=== PATIENT | female | born 1980 | race Caucasian/White ===

== ENCOUNTER → 2020-09-13 | Outpatient (CLI) | payer OTHER ==
[2020-09-13 23:35] LABS: Basophils # (A) 0.08 X 10*3/uL (0.00-0.10); Basophils % (A) 1.4 %; Eosinophils # (A) 0.21 X 10*3/uL (0.04-0.35); Eosinophils % (A) 3.6 %; HCT 43.9 % (37.2-46.3); HGB 13.9 g/dL (12.0-15.0); Lymphocytes # (A) 1.55 X 10*3/uL (0.90-5.00); Lymphocytes % (A) 26.5 %; MCHC 31.7 g/dL (32.0-37.0); MCV 91.5 fL (80.0-97.0); Mean Platelet Volume 11.1 fL (9.5-12.2); Monocytes # (A) 0.49 X 10*3/uL (0.20-1.00); Monocytes % (A) 8.4 %; Neutrophils % (A) 59.8 %; Platelet Count 302 X 10*3/uL (140-440); WBC 5.85 X 10*3/uL (4.50-10.00)
[2020-09-14 08:26] LABS: Immunoglobulin E 2.68 IU/mL (0.00-114.00)
[2020-09-14 13:13] LABS: Immunoglobulin A <25.5 mg/dL (60.0-350.0); Immunoglobulin M 89.4 mg/dL (40.0-280.0)
== END | disposition home or self-care (01) ==
LOC: LABWHC1 16:18
PROVIDERS: ATTEND Internal Medicine
DX: L50.9 Urticaria, unspecified (principal); J20.9 Acute bronchitis, unspecified
CPT/HCPCS: 36415; 82784; 82785; 83520; 85025; 86038

== ENCOUNTER → 2020-10-12 | Outpatient (CLI) | payer OTHER ==
--- NOTE | 2020-10-12 22:13 | CONS ---
CONSULTATION DATE OF SERVICE: 10/12/2020 This 40-year-old lady has been evaluated in [facility] Center for obstructive sleep apnea- hypopnea syndrome. HISTORY OF PRESENT ILLNESS/SLEEP-WAKE EVALUATION: This patient was diagnosed with obstructive sleep apnea in another institution in March of 2020. At that time, apnea-hypopnea index was 13.43 with oxygen desaturation to 84%. The patient was started on treatment with AutoPAP, but she did not feel comfortable with the machine and several times changed her mask, but still could not sleep well. Her sleep is from 3 or 4 a.m. until 9 or 11 a.m. and then she gets up around 1 or 2 p.m. I checked her CPAP unit. It is on automatic regimen. Range of the pressure 5 to 13 cm of water with average pressure 9.8 cm of water. Usage is 12/30 nights and 7/30 nights for more than 4 hours. Leak is 16 L/minute. Apnea-hypopnea index increased to 16.8. [place] Sleepiness Scale is zero. The patient does not have problems with falling asleep, according to her, but from sleep she wakes up several times with up to 3 episodes of nocturia. No history of hypnagogic hallucinations, sleep paralysis or cataplexy. PAST MEDICAL HISTORY: Positive for anxiety, PTSD, GERD, hypothyroidism, Ig deficiency, arthritis. According to the patient, she has had several episodes of COVID-19, the last one in April of 2020. Explanation for several episodes is related to her immune deficiency. PAST SURGICAL HISTORY: Hysterectomy 2013. Cervical fusion in 2018. SOCIAL HISTORY: Negative for smoking or using alcohol. MEDICATIONS: 1. Cymbalta 90 mg once a day. 2. Lamictal 100 mg once a day. 3. Synthroid 75 mcg once a day. 4. Prilosec 20 mg once a day. 5. Claritin 10 mg once a day. 6. Vistaril 25 mg. 7. Montelukast 10 mg once a day. 8. Neurontin 300 mg. 9. Xanax 0.5 mg. 10.Zofran 4 mg. 11.Albuterol. 12.Oxycodone 5/325. 13.Meloxicam 7.5 mg. REVIEW OF SYSTEMS: No fevers. No double vision. No recent chest pain. No shortness of breath. No abdominal pain. No bleeding episodes. No blood in the urine. No seizure episodes. Awakenings from sleep. FAMILY HISTORY: Hypertension, epilepsy, stroke. PHYSICAL EXAMINATION: GENERAL: A pleasant lady without distress. VITAL SIGNS: BP 126/87, HR 88, RR 14, height 5 feet 4 inches, weight 209.8, body mass index 35.8, temperature 97.9, oxygen saturation at room air 97%. HEENT: PERRLA, EOMI. Evaluation of oropharynx showed tongue protrudes midline. Low position of soft palate. Mallampati III to IV. NECK: Supple. No JVD. Thyroid is not palpable. LUNGS: Clear to percussion and to auscultation. Good air exchange. No wheezing or rhonchi. HEART: S1, S2 regular. No murmurs, gallops or rubs. ABDOMEN: Slightly obese. EXTREMITIES: No clubbing or cyanosis. BASKET PERSON: Awake, alert, and oriented X3. Cranial nerves 2 to 7 intact. There is no fasciculation or atrophy. noted. No focal deficits observed. IMPRESSION: 1. Obstructive sleep apnea-hypopnea syndrome. The patient has difficulties with usage of CPAP equipment related to mask fitting. Also reading from the machine showed high apnea-hypopnea index. 2. Obesity. BMI 35.8. 3. Status post COVID-19, according to the patient 3 times, the last time in April 2020. 4. Ig deficiency. 5. Anxiety. 6. Post-traumatic stress disorder. 7. Gastroesophageal reflux disease. 8. Hypothyroidism. 9. Arthritis. 10.Status post partial hysterectomy in 2012. PLAN: 1. CPAP titration for evaluation of effective CPAP pressure and to find correct mask for treatment of obstructive sleep apnea-hypopnea syndrome. 2. Sleep hygiene with regular time in bed for 7-1/2 to 8 hours. 3. No driving if feeling any sleepiness. 4. Exposure to the bright light in the morning -- sunlight or artificial light machine with 10,000 lux energy. 5. Watching and losing weight. Thank you very much for referring this patient for consultation. Sincerely, Chase Kwok MD, PhD, FAASM Diplomat of [place] [employer] [place] [employer] [facility] MMODL / IJN: [id number] /
== END ==
LOC: SLEEP 16:09
PROVIDERS: ATTEND Internal Medicine
DX: G47.33 Obstructive sleep apnea (adult) (pediatric) (principal); E66.9 Obesity, unspecified; F41.9 Anxiety disorder, unspecified; K21.9 Gastro-esophageal reflux disease without esophagitis; E03.9 Hypothyroidism, unspecified; D80.2 Selective deficiency of immunoglobulin A [IgA]; M19.90 Unspecified osteoarthritis, unspecified site; F43.10 Post-traumatic stress disorder, unspecified; Z86.16 Personal history of COVID-19; Z68.35 Body mass index [BMI] 35.0-35.9, adult; Z90.711 Acquired absence of uterus with remaining cervical stump; Z79.890 Hormone replacement therapy; Z79.1 Long term (current) use of non-steroidal anti-inflammatories (NSAID); Z79.899 Other long term (current) drug therapy
CPT/HCPCS: 99211

== ENCOUNTER 2020-10-19 21:01 | Emergency (ER) | payer OTHER ==
[2020-10-19 21:09] VITALS: RESP 18
--- NOTE | 2020-10-19 21:39 | ED ---
Chest Pain HPI - General Chief Complaint: Chest Pain Stated Complaint: chest pain, L arm tingling Time Seen by Provider: 10/19/20 21:38 Source: patient, RN notes reviewed, old records reviewed Mode of arrival: wheelchair Limitations: no limitations - History of Present Illness Initial Comments: This is a 40-year-old female DF for evaluation patient comes in with elevated heart rate shortness chest pain left-sided chest pain left arm numbness and tingling. History or injury. No prior history of heart disease or family history, nonsmoker MD Complaint: chest pain, other (Left arm pain) -: hour(s) Onset: during rest Pain Location: substernal, left chest Pain Radiation: LUE Severity: moderate Severity scale (1-10): 4 Quality: tightness, heaviness Consistency: constant Improves With: nothing Other Symptoms: palpitations Treatments Prior to Arrival: none - Related Data Home Medications Medication Instructions Recorded Confirmed ALPRAZolam [Xanax] 0.5 - 1 mg PO Q4H PRN 10/19/20 10/19/20 Albuterol Sulfate [Albuterol 2 puff PO RT-Q6H PRN 10/19/20 10/19/20 Sulfate Hfa] DULoxetine HCL [Cymbalta] 30 mg PO DAILY 10/19/20 10/19/20 DULoxetine HCL [Cymbalta] 60 mg PO DAILY 10/19/20 10/19/20 Diazepam [Valium] 5 mg PO DAILY PRN 10/19/20 10/19/20 EPINEPHrine (Auto Inject) [Epipen] 0.3 mg IM ONCE PRN 10/19/20 10/19/20 Fluticasone Nasal [place] [Flonase 1 spray EA NOSTRIL DAILY PRN 10/19/20 10/19/20 Nasal [place]] Gabapentin [Neurontin] 300 mg PO DAILY 10/19/20 10/19/20 Gabapentin [Neurontin] 900 mg PO HS 10/19/20 10/19/20 Hydroxychloroquine Sulfate 200 mg PO BID 10/19/20 10/19/20 [Plaquenil] Ibuprofen [Motrin] 800 mg PO Q8H PRN 10/19/20 10/19/20 Leflunomide [Arava] 20 mg PO DAILY 10/19/20 10/19/20 Levothyroxine Sodium [Synthroid] 75 mcg PO DAILY 10/19/20 10/19/20 Loratadine [Claritin] 10 mg PO DAILY 10/19/20 10/19/20 Montelukast Sodium [Singulair] 10 mg PO HS 10/19/20 10/19/20 Omeprazole 20 mg PO DAILY 10/19/20 10/19/20 Ondansetron Odt [Zofran Odt] 4 mg PO Q8HR PRN 10/19/20 10/19/20 hydrOXYzine pamoate [Vistaril] 25 mg PO HS 10/19/20 10/19/20 lamoTRIgine [LaMICtal] 100 mg PO HS 10/19/20 10/19/20 oxyCODONE-APAP 5-325MG [Percocet 1 tab PO Q4H PRN 10/19/20 10/19/20 5-325 mg] tiZANidine HCL 4 mg PO TID PRN 10/19/20 10/19/20 Allergies Allergy/AdvReac Type Severity Reaction Status Date / Time Iodinated Contrast Media Allergy Anaphylaxis Verified 10/19/20 22:47 latex Allergy Anaphylaxis Verified 10/19/20 22:47 Review of Systems ROS Statement: Those systems with pertinent positive or pertinent negative responses have been documented in the HPI. ROS Other: All systems not noted in ROS Statement are negative. EKG Findings - EKG Comments: EKG Findings:: EKG is sinus a 98 NH 150 QRS 90 QTC 459 Past Medical History Past Medical History: No Reported History Additional Past Medical History / Comment(s): spinal cord injury, brain injury. History of Any Multi-Drug Resistant Organisms: None Reported Past Surgical History: Hysterectomy Additional Past Surgical History / Comment(s): spinal fusion Past Psychological History: No Psychological Hx Reported Smoking Status: Never smoker Past Alcohol Use History: None Reported Past Drug Use History: None Reported General Exam Limitations: no limitations General appearance: alert, in no apparent distress, anxious Head exam: Present: atraumatic, normocephalic, normal inspection Eye exam: Present: normal appearance, PERRL, EOMI. Absent: scleral icterus, conjunctival injection, periorbital swelling ENT exam: Present: normal exam, mucous membranes moist Neck exam: Present: normal inspection. Absent: tenderness, meningismus, lymphadenopathy Respiratory exam: Present: normal lung sounds bilaterally. Absent: respiratory distress, wheezes, rales, rhonchi, stridor Cardiovascular Exam: Present: normal rhythm, tachycardia, normal heart sounds. Absent: systolic murmur, diastolic murmur, rubs, gallop, clicks GI/Abdominal exam: Present: soft, normal bowel sounds. Absent: distended, tenderness, guarding, rebound, rigid Extremities exam: Present: normal inspection, full ROM, normal capillary refill. Absent: tenderness, pedal edema, joint swelling, calf tenderness Back exam: Present: normal inspection Neurological exam: Present: alert, oriented X3, CN II-XII intact Psychiatric exam: Present: normal affect, normal mood Skin exam: Present: warm, dry, intact, normal color. Absent: rash Course Vital Signs 10/19/20 10/19/20 10/19/20 21:04 22:09 22:20 Temperature 98.0 F Pulse Rate 120 H 112 H Pulse Rate [ 89 Dyer Helper ] Respiratory 18 18 Rate Blood Pressure 135/84 138/83 O2 Sat by Pulse 97 97 Oximetry - Reevaluation(s) Reevaluation #1: 10/19/20 21:39 Medical record is reviewed Reevaluation #2: 10/20/20 00:44 Patient continues to feel improved with heart rate improved Reevaluation #3: Studies Chest x-ray CT chest negative for acute disease Chest Pain MDM - MDM 80 female with nonspecific elevated heart rate. Patient has anemia, not difficulties, coronavirus test is negative patient did have unspecified tachycardia at her house history 140s, will follow up with outpatient family doctor for possible monitor altered monitor. Patient can be discharged home Disposition Clinical Impression: Atypical chest pain, Tachycardia Disposition: HOME SELF-CARE Condition: Good Instructions (If sedation given, give patient instructions): Tachycardia (ED) Is patient prescribed a controlled substance at d/c from ED?: No Referrals: Bernardo Fishman DO [Primary Care Provider] - 1-2 days
[2020-10-19] MEDS ORDERED: SODIUM CHLORIDE 0.9% 1,000 ML IV STA ×2 (21:43)
[2020-10-19] MEDS ORDERED: FAMOTIDINE 20 MG/2 ML VIAL IV STA (21:53)
[2020-10-19] MEDS ORDERED: methylPREDNISolone SOD SUCCI 125 MG/2 ML VIAL IV STA (21:53)
[2020-10-19] MEDS ORDERED: diphenhydrAMINE 50 MG/ML 1 ML VIAL IVP STA (21:53)
[2020-10-19 22:02] LABS: Basophils # (A) 0.1 k/uL (0-0.2); Basophils % (A) 1 %; Eosinophils # (A) 0.2 k/uL (0-0.7); Eosinophils % (A) 2 %; HCT 42.4 % (34.0-46.0); HGB 14.2 gm/dL (11.4-16.0); Lymphocytes # (A) 1.5 k/uL (1.0-4.8); Lymphocytes % (A) 21 %; MCH 29.4 pg (25.0-35.0); MCHC 33.5 g/dL (31.0-37.0); MCV 87.9 fL (80.0-100.0); Mean Platelet Volume 7.8; Monocytes # (A) 0.5 k/uL (0-1.0); Monocytes % (A) 7 %; Neutrophils # (A) 4.9 k/uL (1.3-7.7); Neutrophils % (A) 68 %; Platelet Count 304 k/uL (150-450); RBC 4.83 m/uL (3.80-5.40); RDW 12.9 % (11.5-15.5); WBC 7.2 k/uL (3.8-10.6)
[2020-10-19 22:12] LABS: ALT 20 U/L (4-34); AST 25 U/L (14-36); African American GFR (CKD) >90 (>60 ml/min/1.73 sqM); Albumin 4.1 g/dL (3.5-5.0); Alkaline Phosphatase 87 U/L (38-126); Anion Gap 8 mmol/L; Blood Urea Nitrogen 12 mg/dL (7-17); Calcium 9.2 mg/dL (8.4-10.2); Carbon Dioxide 24 mmol/L (22-30); Chloride 107 mmol/L (98-107); Glucose 84 mg/dL (74-99); Lipase 147 U/L (23-300); Magnesium 1.8 mg/dL (1.6-2.3); Non-African American GFR(CKD) 82 (>60 ml/min/1.73 sqM); Potassium 3.8 mmol/L (3.5-5.1); Sodium 139 mmol/L (137-145); Total Bilirubin 0.4 mg/dL (0.2-1.3); Total Protein 6.8 g/dL (6.3-8.2)
[2020-10-19 22:17] LABS: INR 0.9 (<1.2); Partial Thromboplastin Time 23.1 sec (22.0-30.0)
--- NOTE | 2020-10-19 22:57 | XR ---
EXAMINATION TYPE: XR chest 1V portable DATE OF EXAM: 10/19/2020 COMPARISON: NONE HISTORY: Short of breath TECHNIQUE: Single view FINDINGS: Heart and mediastinum are normal. Lungs are clear. Diaphragm is normal. Bony thorax appears intact. There are chest leads. IMPRESSION: Normal chest.
[2020-10-19 23:10] LABS: C Reactive Protein 1.6 mg/dL (<1.0)
--- NOTE | 2020-10-19 23:29 | CT ---
EXAMINATION TYPE: CT angio chest DATE OF EXAM: 10/19/2020 COMPARISON: None HISTORY: elevated d-dimer CT DLP: 541.3 mGycm Automated exposure control for dose reduction was used. CONTRAST: Performed with IV Contrast, patient injected with 60 mL of Isovue 370. Images obtained from the thoracic inlet to the diaphragm with IV contrast and 3-D post processed imag es. FINDINGS: Thoracic aorta is intact. There is no aneurysm or dissection. There is no mediastinal adenopathy. The re are no hilar masses. There is normal contrast opacification of the pulmonary arteries. There are no filling defects. Thoracic spine is intact. I see no bony destructive process. The lungs are clear of infiltrate. There is no evidence of a pulmonary mass. There is no pleural effu rosa isela. There is no pericardial effusion. There is single emphysematous bulla in the right lower lobe. The upper abdominal soft tissues are intact. IMPRESSION: Negative exam. No evidence of pulmonary embolism.
[2020-10-20 01:15] LABS: T4, Free (Free Thyroxine) 1.5 ng/dL (0.78-2.19)
[2020-10-20 01:40] VITALS: BP 136/86; PULSE 107; TEMP 98.7
== END 2020-10-20 01:10 | disposition home or self-care (01) ==
LOC: EC 21:01
DX: R07.89 Other chest pain (principal); R00.0 Tachycardia, unspecified; Z79.1 Long term (current) use of non-steroidal anti-inflammatories (NSAID); Z79.899 Other long term (current) drug therapy; Z91.040 Latex allergy status
CPT/HCPCS: 99285; 96374; 96375 ×2; 96361 ×3; 36415; 93005; 85379; 84439; 83880; 80053; 84443; 83615; 83690; 83735; 84484; 85025; 85610; 85730; 86140; 87635; 71045; 71275; J1200; J2930; Q9967

== ENCOUNTER → 2020-12-15 | Outpatient (CLI) | payer OTHER ==
--- NOTE | 2020-12-16 08:42 | SFUN ---
SLEEP CENTER FOLLOW UP NOTE DATE OF SERVICE: 12/15/2020 40-year-old lady has been followed in Sleep Center for treatment of obstructive sleep apnea-hypopnea syndrome. The patient is using her CPAP equipment every night for the whole night. Discomfort on the back of her head secondary to mask head gear. Sometimes mask may go away, goes off during the sleep after Sleepiness Scale today is 0, which is perfect. I checked her CPAP unit, pressure in the range 5 to 13 with average pressure of 11 cm of water. Usage is 100% of night and 21/30 nights more than 4 hours, average 5.1 hours per night. Leak is quite high 62 L/minute. Apnea-hypopnea index on the border is 5.4. MEDICATIONS: Synthroid 75 mcg once a day, Neurontin 300 mg once a day, Prilosec 20 mg once a day. Lamictal 100 mg once a day, Cymbalta 90 mg once a day. . Hydroxyzine. PHYSICAL EXAMINATION: GENERAL: Patient in no distress. BP 114/71, HR 97, RR 18, weight 212.6, body mass index 36.3, temperature 98.1, oxygen saturation at room air 96%. Evaluation of oropharynx showed low position of soft palate, Mallampati 3-4. NECK: Supple, no JVD. Thyroid is not palpable. LUNGS: Clear to percussion and to auscultation. Good air exchange. No wheezing or rhonchi. HEART: S1, S2 regular. No murmurs, gallops, or rubs. ABDOMEN: Soft and nontender. Bowel sounds are present. No organomegaly appreciated. EXTREMITIES: No clubbing or cyanosis. MID LEVEL PROVIDER: Awake, alert, and oriented X3. Cranial nerves 2 to 7 intact. There is no fasciculation or atrophy. noted. No focal deficits observed. IMPRESSION: 1. Obstructive sleep apnea-hypopnea syndrome. Patient demonstrated great compliance with treatment benefitting from treatment. 2. Obesity. 3. Status post Covid-19, last time in April 2020. 4. Anxiety. 5. Post-traumatic stress disorder. 6. Gastroesophageal reflux disease. 7. Hypothyroidism. 8. Arthritis. 9. Status post partial hysterectomy in 2012. PLAN: 1. We will try a different style of nasal pillow mask which has head gear which goes around the ears, [employer] [place]. 2. Patient will continue to use PAP equipment every night for the whole night. 3. Sleep hygiene with regular time in bed for at least 7-1/2 to 8 hours. 4. Precautions related to driving. No driving if feeling sleepiness. 5. I will maintain all necessary prescription for PAP supplies including mask, tube, filters. 6. Watching weight. 7. Follow-up visit in 6 months or earlier if patient has any problems. Thank you very much for allowing me to participate in management of your patient. Sincerely, Chase Kwok MD, PhD, FAASM Diplomat of [place] [employer] Sleep Medicine Board of [place] [employer] Nurse Intern of [facility] [place] MMODL / IJN: [id number] /
== END ==
LOC: SLEEP 15:36
PROVIDERS: ATTEND Internal Medicine
DX: G47.33 Obstructive sleep apnea (adult) (pediatric) (principal); E66.9 Obesity, unspecified; F41.9 Anxiety disorder, unspecified; F43.10 Post-traumatic stress disorder, unspecified; K21.9 Gastro-esophageal reflux disease without esophagitis; E03.9 Hypothyroidism, unspecified; M19.90 Unspecified osteoarthritis, unspecified site; Z90.711 Acquired absence of uterus with remaining cervical stump; Z86.16 Personal history of COVID-19; Z68.36 Body mass index [BMI] 36.0-36.9, adult; Z79.890 Hormone replacement therapy; Z79.899 Other long term (current) drug therapy; Z91.041 Radiographic dye allergy status; Z91.040 Latex allergy status

== ENCOUNTER → 2020-12-20 | Outpatient (CLI) | payer OTHER ==
[2020-12-20 23:40] LABS: Basophils # (A) 0.08 X 10*3/uL (0.00-0.10); Eosinophils # (A) 0.25 X 10*3/uL (0.04-0.35); Eosinophils % (A) 3.1 %; HCT 44.7 % (37.2-46.3); HGB 13.9 g/dL (12.0-15.0); Lymphocytes # (A) 1.65 X 10*3/uL (0.90-5.00); Lymphocytes % (A) 20.3 %; MCH 28.7 pg (27.0-32.0); MCHC 31.1 g/dL (32.0-37.0); MCV 92.4 fL (80.0-97.0); Mean Platelet Volume 10.9 fL (9.5-12.2); Monocytes # (A) 0.64 X 10*3/uL (0.20-1.00); Monocytes % (A) 7.9 %; Neutrophils # (A) 5.48 X 10*3/uL (1.80-7.70); Neutrophils % (A) 67.3 %; Platelet Count 314 X 10*3/uL (140-440); RBC 4.84 X 10*6/uL (4.10-5.20); RDW 13.6 % (11.5-14.5); WBC 8.13 X 10*3/uL (4.50-10.00)
[2020-12-21 00:40] LABS: Erythrocyte Sedimentation Rate 9 mm/Hr (0-20)
[2020-12-21 03:00] LABS: Cyclic Citrull Pep IgG Unit <0.5 U/mL; Cyclic Citrullinated Pep IgG NEGATIVE (NEGATIVE)
[2020-12-21 04:26] LABS: ALT 12 U/L (8-44); AST 14 U/L (13-35); African American GFR (CKD) 105.4 (60.0-200.0); Albumin/Globulin Ratio 1.62 (1.60-3.17); Alkaline Phosphatase 94 U/L (41-126); Bilirubin, Conjugated <0.20 mg/dL (0.20-0.40); C Reactive Protein 0.8 mg/dL (0.0-0.8); Globulin 2.6 g/dL (1.6-3.3); Non-African American GFR(CKD) 90.9 (60.0-200.0); Total Bilirubin 0.4 mg/dL (0.3-1.2); Total Protein 6.8 g/dL (6.2-8.2)
== END | disposition home or self-care (01) ==
LOC: LABWHC1 13:35
PROVIDERS: ATTEND Internal Medicine Rheumatology
DX: M19.90 Unspecified osteoarthritis, unspecified site (principal); M79.7 Fibromyalgia; Z79.899 Other long term (current) drug therapy
CPT/HCPCS: 36415; 80076; 82565; 85025; 85652; 86140; 86200

== ENCOUNTER → 2020-12-26 | Outpatient (CLI) | payer OTHER ==
--- NOTE | 2020-12-27 09:34 | XR ---
EXAMINATION TYPE: XR ankle complete RT DATE OF EXAM: 12/26/2020 COMPARISON: NONE HISTORY: Pain FINDINGS: Three views of the ankle demonstrate the ankle mortise to be intact and symmetric. The joint spaces are preserved. The osseous structures are intact. IMPRESSION: 1. No definite acute fracture or dislocation, if symptoms persist follow-up study in 7 to 10 days wou ld be suggested.
== END | disposition home or self-care (01) ==
LOC: RADXRMAIN 18:13
PROVIDERS: ATTEND Family Medicine
DX: M25.571 Pain in right ankle and joints of right foot (principal)

== ENCOUNTER 2021-01-03 11:59 | Emergency (ER) | payer OTHER ==
[2021-01-03 12:11] VITALS: TEMP 98
[2021-01-03] MEDS ORDERED: SODIUM CHLORIDE 0.9% 500 ML 500 ML IV STA (12:27)
--- NOTE | 2021-01-03 12:31 | ED ---
General Adult HPI - General Chief complaint: Chest Pain Stated complaint: Chest Pain Time Seen by Provider: 01/03/21 12:05 Source: patient, EMS, RN notes reviewed, old records reviewed Mode of arrival: EMS Limitations: no limitations - History of Present Illness Initial comments: This is a 40-year-old female who complains of waking up with epigastric and lower chest pain lasts about 5 minutes sharp in nature and then she vomits and it eventually subsides and she was back to sleep. Patient states it happened 3 times. Currently she is chest pain and epigastric pain free. Patient still has her gallbladder. Patient denies any difficulty breathing shortness of breath. Patient states just before throwing up she got very hot. Patient denies any n ausea currently. Patient has any diarrhea. Patient denies any lightheadedness or dizziness. Patient denies any fever or chills. - Related Data Home Medications Medication Instructions Recorded Confirmed DULoxetine HCL [Cymbalta] 30 mg PO DAILY 10/19/20 01/03/21 DULoxetine HCL [Cymbalta] 60 mg PO DAILY 10/19/20 01/03/21 EPINEPHrine (Auto Inject) [Epipen] 0.3 mg IM ONCE PRN 10/19/20 01/03/21 Gabapentin [Neurontin] 300 mg PO DAILY 10/19/20 01/03/21 Gabapentin [Neurontin] 900 mg PO HS 10/19/20 01/03/21 Levothyroxine Sodium [Synthroid] 75 mcg PO DAILY 10/19/20 01/03/21 Loratadine [Claritin] 10 mg PO DAILY 10/19/20 01/03/21 Omeprazole 20 mg PO DAILY 10/19/20 01/03/21 hydrOXYzine pamoate [Vistaril] 25 mg PO HS 10/19/20 01/03/21 lamoTRIgine [LaMICtal] 100 mg PO HS 10/19/20 01/03/21 oxyCODONE-APAP 5-325MG [Percocet 1 tab PO BID PRN 10/19/20 01/03/21 5-325 mg] tiZANidine HCL 4 mg PO TID PRN 10/19/20 01/03/21 Ubrogepant [Ubrelvy] 50 mg PO BID PRN 01/03/21 01/03/21 Allergies Allergy/AdvReac Type Severity Reaction Status Date / Time Iodinated Contrast Media Allergy Anaphylaxis Verified 10/19/20 22:47 latex Allergy Anaphylaxis Verified 10/19/20 22:47 Review of Systems ROS Statement: Those systems with pertinent positive or pertinent negative responses have been documented in the HPI. ROS Other: All systems not noted in ROS Statement are negative. Past Medical History Past Medical History: No Reported History, Rheumatoid Arthritis (RA) Additional Past Medical History / Comment(s): spinal cord injury, brain injury. History of Any Multi-Drug Resistant Organisms: None Reported Past Surgical History: Hysterectomy Additional Past Surgical History / Comment(s): spinal fusion/ Past Psychological History: No Psychological Hx Reported Smoking Status: Never smoker Past Alcohol Use History: None Reported Past Drug Use History: Marijuana General Exam - General Exam Comments Initial Comments: PGENERAL: Patient is well-developed and well-nourished. Patient is nontoxic and well- hydrated and is in no acute distress. ENT: Neck is soft and supple. No significant lymphadenopathy is noted. Oropharynx is clear. Moist mucous membranes. Neck has full range of motion without eliciting any pain. EYES: The sclera were anicteric and conjunctiva were pink and moist. Extraocular movements were intact and pupils were equal round and reactive to light. Eyelids were unremarkable. PULMONARY: Unlabored respirations. Good breath sounds bilaterally. No audible rales rhonchi or wheezing was noted. CARDIOVASCULAR: There is a regular rate and rhythm without any murmurs gallops or rubs. ABDOMEN: Soft and nontender with normal bowel sounds. SKIN: Skin is clear with no lesions or rashes and otherwise unremarkable. NEUROLOGIC: Patient is alert and oriented x3. Cranial nerves II through XII are grossly i ntact. Motor and sensory are also intact. Normal speech, volume and content. Symmetrical smile. MUSCULOSKELETAL: Normal extremities with adequate strength and full range of motion. No lower extremity swelling or edema. No calf tenderness. LYMPHATICS: No significant lymphadenopathy is noted PSYCHIATRIC: Normal psychiatric evaluation. Limitations: no limitations Course Vital Signs 01/03/21 01/03/21 01/03/21 12:04 13:11 14:30 Temperature 98.0 F Pulse Rate 116 H 95 89 Respiratory 22 20 22 Rate Blood Pressure 136/101 120/80 112/74 O2 Sat by Pulse 97 96 95 Oximetry Medical Decision Making - Medical Decision Making EKG shows sinus tachycardia at a 104 bpm NC interval is on a 54 QRS is 90 QT interval 3:30 QTC is 444. EKG shows no ST segment elevation or depression. Patient chest x-ray showed no acute abnormality. Gallbladder ultrasound showed no acute cholecystitis and no stones. I went back in to see the patient and patient had no new symptoms. - Lab Data Result diagrams: 01/03/21 12:36 01/03/21 12:36 Lab Results 01/03/21 01/03/21 01/03/21 Range/Units 12:36 12:36 12:36 WBC 8.4 (3.8-10.6) k/uL RBC 5.00 (3.80-5.40) m/uL Hgb 14.8 (11.4-16.0) gm/dL Hct 45.5 (34.0-46.0) % MCV 91.0 (80.0-100.0) fL MCH 29.6 (25.0-35.0) pg MCHC 32.6 (31.0-37.0) g/dL RDW 13.2 (11.5-15.5) % Plt Count 318 (150-450) k/uL MPV 7.8 Neutrophils % 72 % Lymphocytes % 16 % Monocytes % 5 % Eosinophils % 3 % Basophils % 1 % Neutrophils # 6.1 (1.3-7.7) k/uL Lymphocytes # 1.4 (1.0-4.8) k/uL Monocytes # 0.5 (0-1.0) k/uL Eosinophils # 0.3 (0-0.7) k/uL Basophils # 0.1 (0-0.2) k/uL PT 9.5 (9.0-12.0) sec INR 0.9 (<1.2) APTT 22.8 (22.0-30.0) sec Sodium 139 (137-145) mmol/L Potassium 4.5 (3.5-5.1) mmol/L Chloride 105 (98-107) mmol/L Carbon Dioxide 25 (22-30) mmol/L Anion Gap 9 mmol/L BUN 12 (7-17) mg/dL Creatinine 0.61 (0.52-1.04) mg/dL Est GFR (CKD-EPI)AfAm >90 (>60 ml/min/1.73 sqM) Est GFR (CKD-EPI)NonAf >90 (>60 ml/min/1.73 sqM) Glucose 107 H (74-99) mg/dL Calcium 9.6 (8.4-10.2) mg/dL Magnesium 1.9 (1.6-2.3) mg/dL Total Bilirubin 0.3 (0.2-1.3) mg/dL AST 22 (14-36) U/L ALT 16 (4-34) U/L Alkaline Phosphatase 109 (38-126) U/L Troponin I (0.000-0.034) ng/mL Total Protein 7.1 (6.3-8.2) g/dL Albumin 4.3 (3.5-5.0) g/dL Amylase 100 (30-110) U/L Lipase 381 H (23-300) U/L 01/03/21 Range/Units 12:36 WBC (3.8-10.6) k/uL RBC (3.80-5.40) m/uL Hgb (11.4-16.0) gm/dL Hct (34.0-46.0) % MCV (80.0-100.0) fL MCH (25.0-35.0) pg MCHC (31.0-37.0) g/dL RDW (11.5-15.5) % Plt Count (150-450) k/uL MPV Neutrophils % % Lymphocytes % % Monocytes % % Eosinophils % % Basophils % % Neutrophils # (1.3-7.7) k/uL Lymphocytes # (1.0-4.8) k/uL Monocytes # (0-1.0) k/uL Eosinophils # (0-0.7) k/uL Basophils # (0-0.2) k/uL PT (9.0-12.0) sec INR (<1.2) APTT (22.0-30.0) sec Sodium (137-145) mmol/L Potassium (3.5-5.1) mmol/L Chloride (98-107) mmol/L Carbon Dioxide (22-30) mmol/L Anion Gap mmol/L BUN (7-17) mg/dL Creatinine (0.52-1.04) mg/dL Est GFR (CKD-EPI)AfAm (>60 ml/min/1.73 sqM) Est GFR (CKD-EPI)NonAf (>60 ml/min/1.73 sqM) Glucose (74-99) mg/dL Calcium (8.4-10.2) mg/dL Magnesium (1.6-2.3) mg/dL Total Bilirubin (0.2-1.3) mg/dL AST (14-36) U/L ALT (4-34) U/L Alkaline Phosphatase (38-126) U/L Troponin I <0.012 (0.000-0.034) ng/mL Total Protein (6.3-8.2) g/dL Albumin (3.5-5.0) g/dL Amylase (30-110) U/L Lipase (23-300) U/L Disposition Clinical Impression: Atypical chest pain, Epigastric abdominal pain, Vomiting Disposition: HOME SELF-CARE Instructions (If sedation given, give patient instructions): Abdominal Pain (ED), Chest Pain (ED) Additional Instructions: Take Zofran when necessary Is patient prescribed a controlled substance at d/c from ED?: No Referrals: Bernardo Fishman DO [Primary Care Provider] - 1-2 days Time of Disposition: 14:18
[2021-01-03 12:47] LABS: Basophils # (A) 0.1 k/uL (0-0.2); Basophils % (A) 1 %; Eosinophils # (A) 0.3 k/uL (0-0.7); Eosinophils % (A) 3 %; HCT 45.5 % (34.0-46.0); HGB 14.8 gm/dL (11.4-16.0); Lymphocytes # (A) 1.4 k/uL (1.0-4.8); Lymphocytes % (A) 16 %; MCH 29.6 pg (25.0-35.0); MCHC 32.6 g/dL (31.0-37.0); Mean Platelet Volume 7.8; Monocytes # (A) 0.5 k/uL (0-1.0); Monocytes % (A) 5 %; Neutrophils # (A) 6.1 k/uL (1.3-7.7); Neutrophils % (A) 72 %; Platelet Count 318 k/uL (150-450); RDW 13.2 % (11.5-15.5); WBC 8.4 k/uL (3.8-10.6)
[2021-01-03 12:57] LABS: INR 0.9 (<1.2); Partial Thromboplastin Time 22.8 sec (22.0-30.0); Prothrombin Time 9.5 sec (9.0-12.0)
[2021-01-03 13:06] LABS: ALT 16 U/L (4-34); AST 22 U/L (14-36); African American GFR (CKD) >90 (>60 ml/min/1.73 sqM); Albumin 4.3 g/dL (3.5-5.0); Alkaline Phosphatase 109 U/L (38-126); Amylase 100 U/L (30-110); Anion Gap 9 mmol/L; Blood Urea Nitrogen 12 mg/dL (7-17); Calcium 9.6 mg/dL (8.4-10.2); Carbon Dioxide 25 mmol/L (22-30); Chloride 105 mmol/L (98-107); Glucose 107 mg/dL (74-99); Lipase 381 U/L (23-300); Magnesium 1.9 mg/dL (1.6-2.3); Non-African American GFR(CKD) >90 (>60 ml/min/1.73 sqM); Potassium 4.5 mmol/L (3.5-5.1); Sodium 139 mmol/L (137-145); Total Bilirubin 0.3 mg/dL (0.2-1.3); Total Protein 7.1 g/dL (6.3-8.2)
--- NOTE | 2021-01-03 13:16 | XR ---
EXAMINATION TYPE: XR chest 2V DATE OF EXAM: 01/03/2021 COMPARISON: 10/19/2020 TECHNIQUE: PA and lateral views submitted. HISTORY: Chest pain FINDINGS: The lungs are clear and there is no pneumothorax, pleural effusion, or focal pneumonia. Size normal . No overt failure. Hypertrophic change of the spine. Surgical change overlying the cervical spine. IMPRESSION: 1. No acute process.
[2021-01-03 14:31] VITALS: BP 112/74; PULSE 89; RESP 22
--- NOTE | 2021-01-03 14:39 | US ---
EXAMINATION TYPE: US gallbladder DATE OF EXAM: 01/03/2021 COMPARISON: NONE CLINICAL HISTORY: pain. Abdomen pain x 1 day EXAM MEASUREMENTS: Liver Length: 13.9 cm Gallbladder Wall: 0.2 cm CBD: 0.4 cm Right Kidney: 11.0 x 5.0 x 4.8 cm Difficult and limited study due to patient body habitus Pancreas: visualized portions wnl, limited by overlying midline bowel gas Liver: wnl Gallbladder: possible sludge Evidence for sonographic Null's sign: no CBD: visualized portions wnl, limited by overlying midline bowel gas Right Kidney: wnl Suboptimal evaluation of pancreas on initial images. Visualized liver is slightly heterogeneous in ap pearance without worrisome mass or ductal dilatation. No right-sided hydronephrosis. Poor visualizati on of gallbladder without shadowing mobile gallstones. Sonographic Null sign negative. No wall thic kening or surrounding fluid. Gallbladder however is not completely anechoic on images saved. Cannot e xclude internal sludge. IMPRESSION: Suboptimal study without shadowing mobile gallstones or ultrasound evidence for acute cho lecystitis.
== END 2021-01-03 15:32 | disposition home or self-care (01) ==
LOC: EC 11:59
DX: R07.89 Other chest pain (principal); R10.13 Epigastric pain; R11.10 Vomiting, unspecified; F12.90 Cannabis use, unspecified, uncomplicated; M06.9 Rheumatoid arthritis, unspecified
CPT/HCPCS: 36415; 71046; 76705; 80053; 82150; 83690; 83735; 84484; 85025; 85610; 85730; 93005; 99285

== ENCOUNTER 2021-01-06 05:54 | Emergency (ER) | payer OTHER ==
[2021-01-06 06:00] VITALS: TEMP 97.8
[2021-01-06] MEDS: ONDANSETRON 4 MG/2 ML VIAL IVP STA ×2 (06:46→07:42)
[2021-01-06] MEDS: SODIUM CHLORIDE 0.9% 1,000 ML IV STA (06:46)
[2021-01-06 06:49] LABS: Basophils % (A) 0 %; Eosinophils # (A) 0.1 k/uL (0-0.7); Eosinophils % (A) 1 %; HCT 45.1 % (34.0-46.0); HGB 14.9 gm/dL (11.4-16.0); Lymphocytes # (A) 0.7 k/uL (1.0-4.8); Lymphocytes % (A) 7 %; MCH 29.9 pg (25.0-35.0); MCHC 33.1 g/dL (31.0-37.0); MCV 90.5 fL (80.0-100.0); Mean Platelet Volume 7.8; Monocytes # (A) 0.3 k/uL (0-1.0); Monocytes % (A) 2 %; Neutrophils # (A) 10.1 k/uL (1.3-7.7); Neutrophils % (A) 90 %; Platelet Count 333 k/uL (150-450); RBC 4.98 m/uL (3.80-5.40); RDW 13.1 % (11.5-15.5); WBC 11.2 k/uL (3.8-10.6)
[2021-01-06 07:15] LABS: ALT 18 U/L (4-34); AST 23 U/L (14-36); African American GFR (CKD) >90 (>60 ml/min/1.73 sqM); Albumin 4.8 g/dL (3.5-5.0); Alkaline Phosphatase 115 U/L (38-126); Amylase 71 U/L (30-110); Anion Gap 12 mmol/L; Blood Urea Nitrogen 9 mg/dL (7-17); Calcium 9.9 mg/dL (8.4-10.2); Carbon Dioxide 23 mmol/L (22-30); Chloride 103 mmol/L (98-107); Glucose 158 mg/dL (74-99); Lipase 84 U/L (23-300); Non-African American GFR(CKD) >90 (>60 ml/min/1.73 sqM); Potassium 4.1 mmol/L (3.5-5.1); Sodium 138 mmol/L (137-145); Total Bilirubin 0.4 mg/dL (0.2-1.3)
[2021-01-06 07:32] VITALS: RESP 16
[2021-01-06 07:32] LABS: HCG,Quantitative Serum <2.4 mIU/mL
[2021-01-06] MEDS: MORPHINE SULFATE 4 MG/ML SYRINGE IVP STA (07:42)
[2021-01-06] MEDS: LORazepam 2 MG/ML INJ IV STA (07:42)
--- NOTE | 2021-01-06 08:17 | CT ---
EXAMINATION TYPE: CT abdomen pelvis wo con DATE OF EXAM: 01/06/2021 COMPARISON: Correlation ultrasound 01/03/2021 HISTORY: 40-year-old female Nausea, Vomiting, Fever and Chills with abdominal pain CT DLP: 984.4 mGycm. Automated exposure control for dose reduction was used. TECHNIQUE: Contiguous axial scanning of the abdomen and pelvis without IV contrast. Coronal and sagit chad reconstructions performed. FINDINGS: Heart normal size without pericardial effusion. Lung bases clear without effusion. 1 cm hypodensity anterior right liver lobe too small for accurate CT characterization, probable cyst. Otherwise, noncontrast appearance of the liver, gallbladder, adrenal glands, kidneys, spleen with hil ar splenule, and pancreas show no gross abnormality. No dilated small bowel, free fluid, or free air. No mesenteric or retroperitoneal lymphadenopathy. Normal appendix. No significant stool burden. No pericolic inflammatory change. Tiny fatty umbilical hernia. Bladder partially distended. No abnormal fluid collection in the pelvis or pelvic lymphadenopathy. U terus surgically absent. 1.5 cm dominant follicle or functional cyst in the right ovary. Left ovary a lso visualized. Bones: Mild degenerative spurring at the hips. Moderate degenerative disc disease L5-S1 with hypertro phic facet arthropathy lower lumbar spine. IMPRESSION: 1. An incidental 1.5 cm dominant follicle or functional cyst in the right ovary and a 1 cm too small to characterize hypodensity in the right liver lobe, likely cyst. 2. Otherwise, no acute inflammatory process identified in the abdomen or pelvis to explain the patie nt's symptoms on this noncontrast exam.
--- NOTE | 2021-01-06 08:42 | ED ---
Nausea/Vomiting/Diarrhea HPI - General Chief complaint: Nausea/Vomiting/Diarrhea Stated complaint: Vomiting,Fever,Chills Time Seen by Provider: 01/06/21 06:03 Source: patient, RN notes reviewed Mode of arrival: ambulatory - History of Present Illness Initial comments: Patient is a 40-year-old female that presents to the emergency room complaining of abdominal pain with nausea and vomiting for the past several days. She notes she was seen here approximately 2 days ago with same complaint discharged home. She notes that she tried calling GI but was unable to get in sooner so she came back to emergency room with the same symptoms. Patient was a well-appearing 40-year-old female while sitting up in bed during the exam interview. During the exam patient did not seem to be in any distress or pain. She noted that she does have an extensive history of severe heartburn and ulcers. Patient denied any chest pain shortness of breath headache diarrhea constipation fever fatigue chills. - Related Data Home Medications Medication Instructions Recorded Confirmed DULoxetine HCL [Cymbalta] 30 mg PO DAILY 10/19/20 01/03/21 DULoxetine HCL [Cymbalta] 60 mg PO DAILY 10/19/20 01/03/21 EPINEPHrine (Auto Inject) [Epipen] 0.3 mg IM ONCE PRN 10/19/20 01/03/21 Gabapentin [Neurontin] 300 mg PO DAILY 10/19/20 01/03/21 Gabapentin [Neurontin] 900 mg PO HS 10/19/20 01/03/21 Levothyroxine Sodium [Synthroid] 75 mcg PO DAILY 10/19/20 01/03/21 Loratadine [Claritin] 10 mg PO DAILY 10/19/20 01/03/21 Omeprazole 20 mg PO DAILY 10/19/20 01/03/21 hydrOXYzine pamoate [Vistaril] 25 mg PO HS 10/19/20 01/03/21 lamoTRIgine [LaMICtal] 100 mg PO HS 10/19/20 01/03/21 oxyCODONE-APAP 5-325MG [Percocet 1 tab PO BID PRN 10/19/20 01/03/21 5-325 mg] tiZANidine HCL 4 mg PO TID PRN 10/19/20 01/03/21 Ubrogepant [Ubrelvy] 50 mg PO BID PRN 01/03/21 01/03/21 Previous Rx's Medication Instructions Recorded Ondansetron Odt [Zofran Odt] 4 mg PO Q8HR PRN #10 tab 01/06/21 Pantoprazole Sodium [Protonix] 40 mg PO DAILY 14 Days #14 01/06/21 tablet. Allergies Allergy/AdvReac Type Severity Reaction Status Date / Time ciprofloxacin [From Cipro] Allergy Rash/Hives Verified 01/06/21 06:01 cyclobenzaprine Allergy Swelling Verified 01/06/21 06:01 [From Flexeril] Iodinated Contrast Media Allergy Anaphylaxis Verified 01/06/21 06:00 latex Allergy Anaphylaxis Verified 01/06/21 06:00 levofloxacin [From Levaquin] Allergy Rash/Hives Verified 01/06/21 06:01 metronidazole [From Flagyl] Allergy Swelling Verified 01/06/21 06:01 sulfamethoxazole Allergy Rash/Hives Verified 01/06/21 06:01 [From Bactrim] trimethoprim [From Bactrim] Allergy Rash/Hives Verified 01/06/21 06:01 haloperidol [From Haldol] AdvReac Hallucinati Verified 01/06/21 06:01 ons Review of Systems ROS Statement: Those systems with pertinent positive or pertinent negative responses have been documented in the HPI. ROS Other: All systems not noted in ROS Statement are negative. Past Medical History Past Medical History: No Reported History, Rheumatoid Arthritis (RA) Additional Past Medical History / Comment(s): spinal cord injury, brain injury. History of Any Multi-Drug Resistant Organisms: None Reported Past Surgical History: Hysterectomy Additional Past Surgical History / Comment(s): spinal fusion/ Past Psychological History: No Psychological Hx Reported Smoking Status: Never smoker Past Alcohol Use History: None Reported Past Drug Use History: None Reported General Exam General appearance: alert, in no apparent distress Head exam: Present: atraumatic, normocephalic, normal inspection Eye exam: Present: normal appearance, PERRL, EOMI. Absent: scleral icterus, conjunctival injection, periorbital swelling Neck exam: Present: normal inspection Respiratory exam: Present: normal lung sounds bilaterally. Absent: respiratory distress, wheezes, rales, rhonchi, stridor Cardiovascular Exam: Present: regular rate, normal rhythm, normal heart sounds. Absent: systolic murmur, diastolic murmur, rubs, gallop, clicks GI/Abdominal exam: Present: soft, normal bowel sounds. Absent: distended, tenderness, guarding, rebound, rigid Extremities exam: Present: normal inspection, full ROM, normal capillary refill. Absent: tenderness, pedal edema, joint swelling, calf tenderness Neurological exam: Present: alert, oriented X3 Psychiatric exam: Present: normal affect, normal mood Skin exam: Present: warm, dry, intact, normal color. Absent: rash Course Vital Signs 01/06/21 01/06/21 05:56 07:10 Temperature 97.8 F 97.8 F Pulse Rate 99 92 Respiratory 19 16 Rate Blood Pressure 156/99 122/98 O2 Sat by Pulse 98 97 Oximetry Medical Decision Making - Medical Decision Making 40-year-old female complaining of nausea and vomiting with upper abdominal pain. Labs, 1 L normal saline, 4 mg of Zofran, 4 mg of morphine, CT of the abdomen and pelvis ordered. Labs: White blood cells 11.2 most likely reactive from nausea and vomiting, rest unremarkable. CT of the abdomen and pelvis negative for any acute intra-abdominal or inflam matory process. 4 mg of Zofran given for continuing nausea and vomiting. Case discussed with Dr. Gonzalez, patient can discharge home with follow-up to primary care and GI specialist. - Lab Data Result diagrams: 01/06/21 06:37 01/06/21 06:37 Lab Results 01/06/21 01/06/21 Range/Units 06:37 06:37 WBC 11.2 H (3.8-10.6) k/uL RBC 4.98 (3.80-5.40) m/uL Hgb 14.9 (11.4-16.0) gm/dL Hct 45.1 (34.0-46.0) % MCV 90.5 (80.0-100.0) fL MCH 29.9 (25.0-35.0) pg MCHC 33.1 (31.0-37.0) g/dL RDW 13.1 (11.5-15.5) % Plt Count 333 (150-450) k/uL MPV 7.8 Neutrophils % 90 % Lymphocytes % 7 % Monocytes % 2 % Eosinophils % 1 % Basophils % 0 % Neutrophils # 10.1 H (1.3-7.7) k/uL Lymphocytes # 0.7 L (1.0-4.8) k/uL Monocytes # 0.3 (0-1.0) k/uL Eosinophils # 0.1 (0-0.7) k/uL Basophils # 0.0 (0-0.2) k/uL Sodium 138 (137-145) mmol/L Potassium 4.1 (3.5-5.1) mmol/L Chloride 103 (98-107) mmol/L Carbon Dioxide 23 (22-30) mmol/L Anion Gap 12 mmol/L BUN 9 (7-17) mg/dL Creatinine 0.52 (0.52-1.04) mg/dL Est GFR (CKD-EPI)AfAm >90 (>60 ml/min/1.73 sqM) Est GFR (CKD-EPI)NonAf >90 (>60 ml/min/1.73 sqM) Glucose 158 H (74-99) mg/dL Calcium 9.9 (8.4-10.2) mg/dL Total Bilirubin 0.4 (0.2-1.3) mg/dL AST 23 (14-36) U/L ALT 18 (4-34) U/L Alkaline Phosphatase 115 (38-126) U/L Total Protein 8.0 (6.3-8.2) g/dL Albumin 4.8 (3.5-5.0) g/dL Amylase 71 (30-110) U/L Lipase 84 (23-300) U/L HCG, Quant <2.4 mIU/mL Disposition Clinical Impression: Epigastric abdominal pain, Vomiting Disposition: HOME SELF-CARE Condition: Stable Instructions (If sedation given, give patient instructions): Abdominal Pain (ED ) Additional Instructions: Please return to the Emergency Department if symptoms worsen or any other concerns. Follow-up with primary care in the next 1-2 days. Follow-up with GI specialist soon as possible. Take Zofran as prescribed. Take Protonix as prescribed. Is patient prescribed a controlled substance at d/c from ED?: No Referrals: Bernardo Fishman DO [Primary Care Provider] - 1-2 days Time of Disposition: 08:42
[2021-01-06 08:53] VITALS: BP 148/90; PULSE 89
[2021-01-06 09:06] LABS: Appearance,Urine Clear (Clear); Bilirubin,Urine Negative (Negative); Blood,Urine Negative (Negative); Color,Urine Yellow; Glucose,Urine (UA) Negative (Negative); Ketones,Urine 2+ (Negative); Leukocyte Esterase,Urine Negative (Negative); Nitrite,Urine Negative (Negative); PH, Urine 8.5 (5.0-8.0); Protein,Urine Trace (Negative); Specific Gravity,Urine 1.018 (1.001-1.035); Urobilinogen,Urine <2.0 mg/dL (<2.0)
== END 2021-01-06 08:47 | disposition home or self-care (01) ==
LOC: EC 05:54
DX: R10.13 Epigastric pain (principal); R11.10 Vomiting, unspecified; M06.9 Rheumatoid arthritis, unspecified
CPT/HCPCS: 36415; 80053; 82150; 83690; 85025; 81003; 84702; 74176; 99284; 96374; 96375; 96376; 96361; J2060; J2405

== ENCOUNTER 2021-01-13 06:37 | Day surgery (SDC) | payer OTHER ==
[2021-01-11 15:34] VITALS: BMI 34.3
[~2021-01-13 06:37] MED LIST: LACTATED RINGERS 1,000 ML IV SCH; LIDOCAINE 1% (10MG/ML) FOR IV START INTRADERMA PRN
[2021-01-13 07:53] VITALS: TEMP 97.1
[2021-01-13] MEDS ORDERED: LIDOCAINE 1% INJ 10MG/ML (20 ML MDV) ONE (09:00)
[2021-01-13] MEDS ORDERED: PROPOFOL 10 MG/ML 20 ML VIAL IV ONE (09:00)
--- NOTE | 2021-01-13 09:12 | P.PCN ---
Date of Procedure: 01/13/21 Procedure(s) Performed: BRIEF HISTORY: Patient is a 40-year-old, pleasant, white female scheduled for an upper endoscopy as a part of evaluation of epigastric pain associated with nausea vomiting for the last 2 weeks' duration. She was given Protonix, Zofran with no help. Recently was started on Phenergan suppositories with some help. He scheduled for an upper endoscopy to evaluate further. PROCEDURE PERFORMED: Esophagogastroduodenoscopy with biopsy. PREOPERATIVE DIAGNOSIS: Persistent epigastric pain and nausea vomiting of 2 weeks duration. IV sedation per anesthesia. PROCEDURE: After informed consent was obtained, the patient was brought into the endoscopy unit. IV sedation was administered by Anesthesia under continuous monitoring. Initially the Olympus GIF-140 video endoscope was inserted into the mouth. Esophagus intubated without any difficulty. It was gradually advanced into the stomach and duodenum and carefully examined. The bulb and the second part of the duodenum appeared normal. Biopsies were done from the duodenum to rule out celiac disease. The scope at this time was withdrawn to the stomach, adequately insufflated with air, and upon careful examination, mucosa of the antrum, had mild gastritis and biopsies were done from this area. The body, cardia and the fundus appeared normal. The scope was then withdrawn into the esophagus. The GE junction was located at 39 cm from the incisors. The esophagus appeared normal. There were no erosions or ulcerations seen, biopsies were done from the distal esophagus and the patient tolerated the procedure well. IMPRESSION: 1. Mild antral gastritis. 2. Small hiatal hernia but no evidence of esophagitis or peptic ulcer disease. RECOMMENDATIONS: The findings of this examination were discussed with the patient as well as her family. She was advised to follow with the biopsy results. She will continue with omeprazole 20 mg twice daily, Zofran and Phenergan as needed and she'll be seen in office in 2-3 weeks.
[2021-01-13 09:32] VITALS: BP 104/69; PULSE 83; RESP 16
== END 2021-01-13 10:12 | disposition home or self-care (01) ==
LOC: ORWHC2ENDO 06:37
PROVIDERS: ATTEND Internal Medicine Gastroenterology
DX: K29.50 Unspecified chronic gastritis without bleeding (principal); K44.9 Diaphragmatic hernia without obstruction or gangrene; J45.909 Unspecified asthma, uncomplicated; G47.33 Obstructive sleep apnea (adult) (pediatric); F12.90 Cannabis use, unspecified, uncomplicated; E07.9 Disorder of thyroid, unspecified; M79.7 Fibromyalgia; M06.9 Rheumatoid arthritis, unspecified; K21.9 Gastro-esophageal reflux disease without esophagitis; T75.3XXA Motion sickness, initial encounter
CPT/HCPCS: 43239; 88305; J2001; J2704

== ENCOUNTER → 2021-01-17 | Outpatient (CLI) | payer OTHER ==
[2021-01-18 01:11] LABS: Basophils # (A) 0.07 X 10*3/uL (0.00-0.10); Basophils % (A) 0.9 %; Eosinophils # (A) 0.31 X 10*3/uL (0.04-0.35); Eosinophils % (A) 4.2 %; HCT 44.8 % (37.2-46.3); HGB 13.7 g/dL (12.0-15.0); Lymphocytes % (A) 27.1 %; MCHC 30.6 g/dL (32.0-37.0); MCV 94.7 fL (80.0-97.0); Monocytes # (A) 0.66 X 10*3/uL (0.20-1.00); Monocytes % (A) 8.9 %; Neutrophils # (A) 4.31 X 10*3/uL (1.80-7.70); Neutrophils % (A) 58.4 %; Platelet Count 339 X 10*3/uL (140-440); RBC 4.73 X 10*6/uL (4.10-5.20); RDW 13.5 % (11.5-14.5); WBC 7.39 X 10*3/uL (4.50-10.00)
[2021-01-18 01:55] LABS: Erythrocyte Sedimentation Rate 9 mm/Hr (0-20)
[2021-01-18 07:48] LABS: ALT 19 U/L (8-44); AST 18 U/L (13-35); African American GFR (CKD) 80.5 (60.0-200.0); Albumin/Globulin Ratio 1.83 (1.60-3.17); Alkaline Phosphatase 104 U/L (41-126); C Reactive Protein 0.4 mg/dL (0.0-0.8); Calcium 9.3 mg/dL (8.7-10.3); Carbon Dioxide 22.4 mmol/L (21.6-31.8); Chloride 109 mmol/L (96-109); Globulin 2.3 g/dL (1.6-3.3); Glucose 109 mg/dL (70-110); Non-African American GFR(CKD) 69.4 (60.0-200.0); Potassium 4.6 mmol/L (3.5-5.5); Rheumatoid Factor, Qnt <4 IU/mL (0-13); Sodium 140 mmol/L (135-145); Total Bilirubin 0.1 mg/dL (0.3-1.2); Total Protein 6.5 g/dL (6.2-8.2)
[2021-01-18 17:15] LABS: Cyclic Citrull Pep IgG Unit <0.5 U/mL; Cyclic Citrullinated Pep IgG NEGATIVE (NEGATIVE)
== END | disposition home or self-care (01) ==
LOC: LABWHC1 15:46
PROVIDERS: ATTEND Internal Medicine
DX: M79.641 Pain in right hand (principal)
CPT/HCPCS: 36415; 80053; 85025; 85652; 86038; 86039; 86140; 86200; 86431

== ENCOUNTER → 2021-01-24 | Outpatient (CLI) | payer OTHER ==
--- NOTE | 2021-01-26 09:39 | MM ---
Reason for exam: screening (asymptomatic). Baseline mammogram. History: Patient history of other cancer. Took hormonal contraceptives beginning at age 16. Physical Findings: Nurse did not find any significant physical abnormalities on exam. MG Screening Mammo w CAD Bilateral CC and MLO view(s) were taken. There are scattered fibroglandular densities. Benign oil cyst calcifications. Small intramammary node left posteriorly. Inferior asymmetric density left MLO view. ASSESSMENT: Incomplete: need additional imaging evaluation, BI-RAD 0 RECOMMENDATION: Special view mammogram of the left breast. (3D) If lesion persists on supplemental views, image directed ultrasound is recommended. [facility] will attempt to contact patient to return for supplemental views and ultrasound if indicated.
== END | disposition home or self-care (01) ==
LOC: RADMAMWWP 13:54
PROVIDERS: ATTEND Family Medicine
DX: Z12.31 Encounter for screening mammogram for malignant neoplasm of breast (principal)
CPT/HCPCS: 77067

== ENCOUNTER → 2021-01-31 | Outpatient (CLI) | payer OTHER ==
--- NOTE | 2021-02-01 08:02 | MM ---
Reason for exam: additional evaluation requested from abnormal screening. Last mammogram was performed less than 1 month ago. History: Patient history of other cancer. Family history of breast cancer in sister at age 30 and breast cancer in paternal grandmother at age 50. Took hormonal contraceptives beginning at age 16. Physical Findings: Nurse did not find any significant physical abnormalities on exam. MG Work Up Mamm w CAD LT Spot compression MLO and LM view(s) were taken of the left breast. Prior study comparison: January 24, 2021, bilateral MG screening mammo w CAD. There are scattered fibroglandular densities. There is no discrete abnormality including area of concern inferior left MLO. These results were verbally communicated with the patient and result sheet given to the patient on 01/31/21. ASSESSMENT: Benign, BI-RAD 2 RECOMMENDATION: Return to routine screening mammogram schedule for both breasts.
== END | disposition home or self-care (01) ==
LOC: RADMAMWWP 13:34
PROVIDERS: ATTEND Family Medicine
DX: N64.89 Other specified disorders of breast (principal); Z85.9 Personal history of malignant neoplasm, unspecified; Z80.3 Family history of malignant neoplasm of breast; Z79.3 Long term (current) use of hormonal contraceptives
CPT/HCPCS: 77065

== ENCOUNTER → 2021-04-21 | Outpatient (CLI) | payer OTHER ==
--- NOTE | 2021-04-21 17:27 | FL ---
EXAMINATION TYPE: FL voiding cystourethrogram DATE OF EXAM: 04/21/2021 COMPARISON: Correlation CT 01/06/2021 HISTORY: 40-year-old female R39.198, difficulty urinating. TECHNIQUE: Patient was given the standard 13 hour premedication for contrast allergy. The risks and benefits of the procedure were discussed with the patient who gave verbal consent. The urinary bladd er was catheterized by radiology nursing under standard sterile technique a Zhong catheter, after top ical 0.1% Lidocaine was administered. A total of 300 mL of Cystografin contrast was instilled. Total fluoroscopy time: 2 minutes 1 second. Total images: 31. FINDINGS: Retrograde instillation of water-soluble contrast demonstrates the bladder to be normal in shape and contour with no filling defects appreciated. No vesicoureteral reflux is demonstrated during filling. The patient had difficulty initiating voiding. After voiding was initiated, it continued without in cident. During the voiding no vesicoureteral reflux is identified. There is normal emptying of the bl adder. The urethra is normal. Post void image demonstrates no significant urinary residual IMPRESSION: Aside from hesitancy in initiating voiding, unremarkable VCUG. No urethral/bladder obstruction or str icture. No vesicoureteral reflux. No abnormal filling defect identified.
== END | disposition home or self-care (01) ==
LOC: RADUSWWP 14:23
PROVIDERS: ATTEND Family Medicine
DX: R39.198 Other difficulties with micturition (principal)
CPT/HCPCS: 74455; Q9958

== ENCOUNTER → 2021-06-22 | Outpatient (CLI) | payer MEDICARE, OTHER ==
--- NOTE | 2021-06-22 19:56 | SFUN ---
SLEEP CENTER FOLLOW UP NOTE DATE OF SERVICE: 06/22/2021 This 41-year-old lady has been followed in Sleep Center for treatment of obstructive sleep apnea-hypopnea syndrome. I saw this patient in December of 2020. At that time she was continuing to use her CPAP equipment most of the nights, and apnea-hypopnea index reading from the machine was 5.4, which is on the border. I discussed with the patient the possibility of using Garza FX [place] nasal mask at that time. Today the patient explained that she now sleeps better without the machine. She did check how she sleeps using her watch and, according to data from there, she sleeps with normal oxygen level. I reviewed the results of the sleep study which was done in another institution in 2019. At that time, apnea-hypopnea index was 13.5, which is definitely above normal range. The patient explained that while using the Valium, her sleep is much better now. [place] Sleepiness Scale today is zero. MEDICATIONS: Plaquenil, Valium, control pills. PHYSICAL EXAMINATION: GENERAL: Pleasant patient in no distress. VITAL SIGNS: BP 135/86, HR 94, RR 15, height 5 feet 4 inches, weight 211, body mass index 36.2, temperature 98.6, oxygen saturation at room air 95%. HEENT: PERRLA, EOMI, evaluation of oropharynx showed tongue protrudes midline. Low position of soft palate; Mallampati III to IV. NECK: Supple, no JVD. Thyroid is not palpable. LUNGS: Clear to percussion and to auscultation. Good air exchange. No wheezing or rhonchi. HEART: S1, S2 regular. No murmurs, gallops, or rubs. ABDOMEN: Obese. EXTREMITIES: No clubbing or cyanosis. LOCKER OPERATOR: Awake, alert, and oriented X3. Cranial nerves 2 to 7 intact. There is no fasciculation or atrophy. noted. No focal deficits observed. IMPRESSION: 1. History of obstructive sleep apnea-hypopnea syndrome documented by a sleep study which was done in another institution on 2019. At that time apnea-hypopnea index was 13.5. 2. Presently the patient stopped using her machine because she feels that she sleeps better, and the reading from her watch showed that she sleeps well. 3. Obesity. Present body mass index 36.2. Patient lost 14 pounds since the sleep study which was done last year. Losing weight may improve her breathing. 4. Status post COVID-19 in April 2020. 5. Anxiety. 6. Posttraumatic stress disorder. 7. Gastroesophageal reflux disease. 8. Hypothyroidism. 9. Arthritis. 10.Status post partial hysterectomy in 2012. PLAN: 1. Home sleep apnea test for evaluation of patient's breathing during sleep. 2. Following plan after reviewing results of sleep study. 3. Continue losing weight. 4. Sleep hygiene with regular time in bed for at least 7-1/2 to 8 hours. 5. No driving if feeling sleepiness. Thank you very much for allowing me to participate in the management of your patient. Sincerely, Chase Kwok MD, PhD, FAASM Diplomat of [place] [employer] Sleep Medicine Board of [place] [employer] Supervisor of [facility] [place] MMODL / MAISHAN: [id number] /
== END ==
LOC: SLEEP 16:42
PROVIDERS: ATTEND Internal Medicine
DX: G47.33 Obstructive sleep apnea (adult) (pediatric) (principal); E66.9 Obesity, unspecified; Z68.36 Body mass index [BMI] 36.0-36.9, adult; F41.9 Anxiety disorder, unspecified; F43.10 Post-traumatic stress disorder, unspecified; K21.9 Gastro-esophageal reflux disease without esophagitis; E03.9 Hypothyroidism, unspecified; M19.90 Unspecified osteoarthritis, unspecified site; Z90.710 Acquired absence of both cervix and uterus; Z86.16 Personal history of COVID-19; Z88.1 Allergy status to other antibiotic agents; Z91.041 Radiographic dye allergy status; Z91.040 Latex allergy status; Z88.2 Allergy status to sulfonamides; Z88.8 Allergy status to other drugs, medicaments and biological substances

== ENCOUNTER 2021-10-21 12:03 | Observation (INO) | payer MEDICARE, OTHER ==
--- NOTE | 2021-10-21 13:01 | XR ---
EXAMINATION TYPE: XR chest 2V DATE OF EXAM: 10/21/2021 COMPARISON: Chest x-ray January 03, 2021 HISTORY: Worsening chest pain. TECHNIQUE: Frontal and lateral views of the chest are obtained. FINDINGS: There is no suspicious focal air space opacity, pleural effusion, or pneumothorax seen. T he cardiac silhouette size remains within normal limits. Postsurgical change of the cervical spine is redemonstrated. IMPRESSION: No acute cardiopulmonary process. No significant change from prior.
[2021-10-21 13:45] LABS: Basophils # (A) 0.1 k/uL (0-0.2); Basophils % (A) 0 %; Eosinophils # (A) 0.2 k/uL (0-0.7); Eosinophils % (A) 1 %; HCT 47.6 % (34.0-46.0); HGB 15.3 gm/dL (11.4-16.0); Lymphocytes # (A) 0.7 k/uL (1.0-4.8); Lymphocytes % (A) 4 %; MCH 29.1 pg (25.0-35.0); MCHC 32.1 g/dL (31.0-37.0); MCV 90.6 fL (80.0-100.0); Mean Platelet Volume 7.6; Monocytes # (A) 0.8 k/uL (0-1.0); Monocytes % (A) 4 %; Neutrophils # (A) 16.1 k/uL (1.3-7.7); Neutrophils % (A) 90 %; Platelet Count 397 k/uL (150-450); RBC 5.26 m/uL (3.80-5.40); RDW 13.4 % (11.5-15.5); WBC 17.9 k/uL (3.8-10.6)
[2021-10-21 13:56] LABS: INR 0.9 (<1.2); Partial Thromboplastin Time 22.4 sec (22.0-30.0); Prothrombin Time 10.2 sec (9.0-12.0)
[2021-10-21 13:58] LABS: ALT 21 U/L (4-34); AST 19 U/L (14-36); African American GFR (CKD) >90 (>60 ml/min/1.73 sqM); Albumin 4.6 g/dL (3.5-5.0); Alkaline Phosphatase 76 U/L (38-126); Anion Gap 11 mmol/L; Blood Urea Nitrogen 15 mg/dL (7-17); Calcium 9.4 mg/dL (8.4-10.2); Carbon Dioxide 22 mmol/L (22-30); Chloride 108 mmol/L (98-107); Glucose 104 mg/dL (74-99); Magnesium 2.2 mg/dL (1.6-2.3); Non-African American GFR(CKD) >90 (>60 ml/min/1.73 sqM); Potassium 4.2 mmol/L (3.5-5.1); Sodium 141 mmol/L (137-145); Total Bilirubin 0.6 mg/dL (0.2-1.3); Total Protein 7.7 g/dL (6.3-8.2)
[2021-10-21] MEDS ORDERED: ONDANSETRON 4 MG/2 ML VIAL IVP STA (14:56)
[2021-10-21] MEDS ORDERED: SODIUM CHLORIDE 0.9% 2,000 ML IV STA (14:56)
[2021-10-21] MEDS ORDERED: FAMOTIDINE 20 MG/2 ML VIAL IV STA (14:58)
[2021-10-21] MEDS ORDERED: LORazepam 2 MG/ML INJ IV STA (14:58)
--- NOTE | 2021-10-21 19:01 | ED ---
General Adult HPI - General Chief complaint: Chest Pain Stated complaint: Chest pain Time Seen by Provider: 10/21/21 14:38 Source: patient Mode of arrival: wheelchair Limitations: no limitations - History of Present Illness Initial comments: Patient is a 41-year-old female presenting with chief complaint of nausea, vomiting, epigastric/chest pain. Past medical history of pancreatitis. Patient was seen here in our ER last night with plans to admit, patient left AMA. Patient states that today the chest pain and vomiting were worse. Supportive treatment at home with Phenergan suppository was unsuccessful. Patient states that she gets epigastric/chest pain with intake of any food or fluids, patient states she has not been able to eat or drink at home for several days. Patient admits to occasional blood-streaked sputum with vomiting. Patient states that she has had intermittent chest pains in the past but has not had a cardiac workup. Family history is remarkable for both of her grandmothers being diagnosed with heart disease prior to the age of 60 according to the patient. Patient denies shortness of breath, fever, chills, headache, vision changes, hearing changes, back pain, dysuria, hematuria, urgency, frequency, palpitations, diaphoresis, weakness, diarrhea, hematochezia, melena. - Related Data Home Medications Medication Instructions Recorded Confirmed DULoxetine HCL [Cymbalta] 60 mg PO DAILY 10/19/20 10/21/21 EPINEPHrine (Auto Inject) [Epipen] 0.3 mg IM ONCE PRN 10/19/20 10/21/21 Gabapentin [Neurontin] 300 mg PO DAILY 10/19/20 10/21/21 Levothyroxine Sodium [Synthroid] 75 mcg PO DAILY 10/19/20 10/21/21 Omeprazole 20 mg PO DAILY 10/19/20 10/21/21 hydrOXYzine pamoate [Vistaril] 25 mg PO HS 10/19/20 10/21/21 oxyCODONE-APAP 5-325MG [Percocet 1 tab PO BID PRN 10/19/20 10/21/21 5-325 mg] tiZANidine HCL 4 mg PO TID PRN 10/19/20 10/21/21 diazePAM [Valium] 5 mg PO HS 07/05/21 10/21/21 ALPRAZolam [Xanax] 0.5 mg PO DIRECTED PRN 10/20/21 10/21/21 DULoxetine HCL [Cymbalta] 30 mg PO DAILY 10/20/21 10/21/21 Diazepam [Valium] 5 mg PO BID PRN 10/20/21 10/21/21 Gabapentin 900 mg PO HS 10/20/21 10/21/21 Rimegepant Sulfate [Nurtec Odt] 75 mg PO DAILY PRN 10/20/21 10/21/21 Allergies Allergy/AdvReac Type Severity Reaction Status Date / Time ciprofloxacin [From Cipro] Allergy Rash/Hives Verified 10/21/21 12:16 cyclobenzaprine Allergy Swelling Verified 10/21/21 12:16 [From Flexeril] Iodinated Contrast Media Allergy Anaphylaxis Verified 10/21/21 12:16 latex Allergy Anaphylaxis Verified 10/21/21 12:16 levofloxacin [From Levaquin] Allergy Rash/Hives Verified 10/21/21 12:16 metronidazole [From Flagyl] Allergy Swelling Verified 10/21/21 12:16 sulfamethoxazole Allergy Rash/Hives Verified 10/21/21 12:16 [From Bactrim] trimethoprim [From Bactrim] Allergy Rash/Hives Verified 10/21/21 12:16 haloperidol [From Haldol] AdvReac Hallucinati Verified 10/21/21 12:16 ons Review of Systems ROS Statement: Those systems with pertinent positive or pertinent negative responses have been documented in the HPI. ROS Other: All systems not noted in ROS Statement are negative. Past Medical History Past Medical History: Asthma, Blood Disorder, Cancer, Eye Disorder, Fibromyalgia, GERD/Reflux, Rheumatoid Arthritis (RA), Sleep Apnea/CPAP/BIPAP, Thyroid Disorder Additional Past Medical History / Comment(s): Spinal cord injury, brain injury with resultant chronic neck, bilateral shoulder and back pain, coordination and memory problems. IgA Deficiency. States "can only have IgA deficient blood only or I will have an Anaphylactic Reaction." Chronic Interstitial Cystitis, Gastroparesis. CPAP use. Skin cancer 2 yrs ago on back. Bilateral Macular Degeneration. History of Any Multi-Drug Resistant Organisms: MRSA Date of last positivie culture/infection: 2015 MDRO Source:: Right Inner Thigh Past Surgical History: Hysterectomy Additional Past Surgical History / Comment(s): Spinal fusion, bilateral bunionectomy, skin cancer removed from back. Past Anesthesia/Blood Transfusion Reactions: No Reported Reaction, Motion Sickness Additional Past Anesthesia/Blood Transfusion Reaction / Comment(s): No history of blood transfusion. IgA Deficiency, can only have IgA Deficient blood or will have Anaphylactic Reaction. Past Psychological History: Anxiety, PTSD Smoking Status: Never smoker Past Alcohol Use History: None Reported Past Drug Use History: Marijuana - Past Family History Father Family Medical History: Cancer, Seizure Disorder Additional Family Medical History / Comment(s): Prostate Cancer. Mother Family Medical History: Cancer Additional Family Medical History / Comment(s): Skin cancer. General Exam Limitations: no limitations General appearance: alert, in no apparent distress Head exam: Present: atraumatic, normocephalic, normal inspection Eye exam: Present: normal appearance, EOMI. Absent: scleral icterus Neck exam: Present: normal inspection Respiratory exam: Present: normal lung sounds bilaterally. Absent: respiratory distress, wheezes, rales, rhonchi, stridor Cardiovascular Exam: Present: regular rate, normal rhythm, normal heart sounds. Absent: systolic murmur, diastolic murmur, rubs, gallop, clicks GI/Abdominal exam: Present: soft, normal bowel sounds. Absent: distended, tenderness, guarding, rebound, rigid Back exam: Present: normal inspection Neurological exam: Present: alert, oriented X3, CN II-XII intact Psychiatric exam: Present: normal affect, normal mood Skin exam: Present: warm, dry, intact, normal color. Absent: rash Course Vital Signs 10/21/21 10/21/21 10/21/21 12:16 15:09 16:53 Temperature 98.2 F Pulse Rate 107 H 101 H Pulse Rate [ 101 H Mandrel Puller ] Respiratory 18 16 Rate Blood Pressure 151/97 112/76 O2 Sat by Pulse 98 99 Oximetry EKG Findings - EKG Comments: EKG Findings:: Sinus rhythm with sinus arrhythmia. Rate of 83. NH interval 164. QRS duration 87. No acute ST or T-wave changes evident. Medical Decision Making - Medical Decision Making Patient is a 41-year-old female presenting with chief complaint of nausea, vomiting, epigastric/chest pain. Pain has been going on for several days. Patient was seen in this ER for the same issue last night, stating that it is getting worse. On examination there are normal bowel sounds in all 4 quadrants, abdomen is soft, nontender, nondistended. Her lungs are clear to auscultation. Leukocytosis with WBC of 17.9. Chest x-ray is negative. Troponin is negative. EKG is unremarkable. Patient was given Pepcid, Zofran, Ativan. Patient notes some improvement, however on by mouth challenge with water pain and nausea returned, patient is concerned she will be back here tomorrow if symptoms do not resolve. I feel the patient is best suited for observation at this time. I spoke with Dr. Laughlin from [facility] who agreed to admit the patient. Patient was agreeable to the plan. I discussed this case with my attending Dr. Resendez. - Lab Data Result diagrams: 10/21/21 13:29 10/21/21 13:29 Lab Results 10/21/21 10/21/21 10/21/21 Range/Units 13:29 13:29 13:29 WBC 17.9 H (3.8-10.6) k/uL RBC 5.26 (3.80-5.40) m/uL Hgb 15.3 (11.4-16.0) gm/dL Hct 47.6 H (34.0-46.0) % MCV 90.6 (80.0-100.0) fL MCH 29.1 (25.0-35.0) pg MCHC 32.1 (31.0-37.0) g/dL RDW 13.4 (11.5-15.5) % Plt Count 397 (150-450) k/uL MPV 7.6 Neutrophils % 90 % Lymphocytes % 4 % Monocytes % 4 % Eosinophils % 1 % Basophils % 0 % Neutrophils # 16.1 H (1.3-7.7) k/uL Lymphocytes # 0.7 L (1.0-4.8) k/uL Monocytes # 0.8 (0-1.0) k/uL Eosinophils # 0.2 (0-0.7) k/uL Basophils # 0.1 (0-0.2) k/uL PT 10.2 (9.0-12.0) sec INR 0.9 (<1.2) APTT 22.4 (22.0-30.0) sec Sodium 141 (137-145) mmol/L Potassium 4.2 (3.5-5.1) mmol/L Chloride 108 H (98-107) mmol/L Carbon Dioxide 22 (22-30) mmol/L Anion Gap 11 mmol/L BUN 15 (7-17) mg/dL Creatinine 0.80 (0.52-1.04) mg/dL Est GFR (CKD-EPI)AfAm >90 (>60 ml/min/1.73 sqM) Est GFR (CKD-EPI)NonAf >90 (>60 ml/min/1.73 sqM) Glucose 104 H (74-99) mg/dL Calcium 9.4 (8.4-10.2) mg/dL Magnesium 2.2 (1.6-2.3) mg/dL Total Bilirubin 0.6 (0.2-1.3) mg/dL AST 19 (14-36) U/L ALT 21 (4-34) U/L Alkaline Phosphatase 76 (38-126) U/L Troponin I (0.000-0.034) ng/mL Total Protein 7.7 (6.3-8.2) g/dL Albumin 4.6 (3.5-5.0) g/dL 10/21/21 Range/Units 13:29 WBC (3.8-10.6) k/uL RBC (3.80-5.40) m/uL Hgb (11.4-16.0) gm/dL Hct (34.0-46.0) % MCV (80.0-100.0) fL MCH (25.0-35.0) pg MCHC (31.0-37.0) g/dL RDW (11.5-15.5) % Plt Count (150-450) k/uL MPV Neutrophils % % Lymphocytes % % Monocytes % % Eosinophils % % Basophils % % Neutrophils # (1.3-7.7) k/uL Lymphocytes # (1.0-4.8) k/uL Monocytes # (0-1.0) k/uL Eosinophils # (0-0.7) k/uL Basophils # (0-0.2) k/uL PT (9.0-12.0) sec INR (<1.2) APTT (22.0-30.0) sec Sodium (137-145) mmol/L Potassium (3.5-5.1) mmol/L Chloride (98-107) mmol/L Carbon Dioxide (22-30) mmol/L Anion Gap mmol/L BUN (7-17) mg/dL Creatinine (0.52-1.04) mg/dL Est GFR (CKD-EPI)AfAm (>60 ml/min/1.73 sqM) Est GFR (CKD-EPI)NonAf (>60 ml/min/1.73 sqM) Glucose (74-99) mg/dL Calcium (8.4-10.2) mg/dL Magnesium (1.6-2.3) mg/dL Total Bilirubin (0.2-1.3) mg/dL AST (14-36) U/L ALT (4-34) U/L Alkaline Phosphatase (38-126) U/L Troponin I <0.012 (0.000-0.034) ng/mL Total Protein (6.3-8.2) g/dL Albumin (3.5-5.0) g/dL Disposition Clinical Impression: Chest pain, Nausea and vomiting Disposition: ADMITTED IP TO THIS [facility] Condition: Good Referrals: Bernardo Fishman DO [Primary Care Provider] - 1-2 days Time of Disposition: 19:00 Decision to Admit Reason: Admit from EC Decision Date: 10/21/21 Decision Time: 19:00
[2021-10-21] MEDS ORDERED: NALOXONE 0.4 MG/ML 1 ML VIAL IV PRN (19:56)
[2021-10-21] MEDS ORDERED: SODIUM CHLORIDE 0.9% 1,000 ML IV SCH (20:00)
[2021-10-21 20:12] LABS: Amorphous Sediment,Urine Occasional /hpf; Appearance,Urine Cloudy (Clear); Bacteria,Urine Rare /hpf; Bilirubin,Urine Negative (Negative); Blood,Urine Negative (Negative); Color,Urine Yellow; Glucose,Urine (UA) Negative (Negative); Ketones,Urine 4+ (Negative); Leukocyte Esterase,Urine Negative (Negative); Mucus,Urine Few /hpf; Nitrite,Urine Negative (Negative); Protein,Urine Trace (Negative); RBC,Urine 1 /hpf (0-5); Squamous Epithelial Cell,Urine 13 /hpf (0-4); Urobilinogen,Urine <2.0 mg/dL (<2.0); WBC,Urine 4 /hpf (0-5)
[2021-10-21 20:59] LABS: Basophils % (A) 0 %; Eosinophils # (A) 0.1 k/uL (0-0.7); Eosinophils % (A) 1 %; HCT 41.3 % (34.0-46.0); Lymphocytes # (A) 1.2 k/uL (1.0-4.8); Lymphocytes % (A) 9 %; MCH 28.9 pg (25.0-35.0); MCHC 31.5 g/dL (31.0-37.0); MCV 91.8 fL (80.0-100.0); Mean Platelet Volume 7.7; Monocytes # (A) 0.7 k/uL (0-1.0); Monocytes % (A) 5 %; Neutrophils # (A) 11.5 k/uL (1.3-7.7); Neutrophils % (A) 84 %; Platelet Count 339 k/uL (150-450); RDW 13.4 % (11.5-15.5); WBC 13.7 k/uL (3.8-10.6)
[2021-10-22] MEDS ORDERED: MORPHINE SULFATE 2 MG/ML SYRINGE IVP STA (00:20)
[2021-10-22] MEDS ORDERED: ONDANSETRON 4 MG/2 ML VIAL IVP STA (00:20)
--- NOTE | 2021-10-22 00:26 | P.HPIM ---
History of Present Illness H&P Date: 10/21/21 Patient is a 40-year-old female with a PMH of gastroparesis who presented to the emergency room with complaints of abdominal pain, nausea, vomiting. The patient reports that her symptoms started 4 days ago. She reports a long-standing history of gastroparesis, diagnosed at age 14, for which she has been following with multiple outpatient GI physicians. She reports also having undergone a recent endoscopy by Dr. Bond which found gastritis. Reports intractable nausea, too many episodes occur with sharp epigastric abdominal discomfort, worsened with movement. Reports the pain is 8 out of 10 on maximal intensity, constant, nonradiating. Notes that her symptoms are very similar to her prior gastroparesis flareups. Notes having a flareup once every 4-5 months, for which she previously was seen at hospitals in [place] from where she moved to this area last year. Reports not able to eat or drink anything during this time. Also reports shortness of breath during this time, nonexertional. EKG emergency room reveals sinus rhythm at 83 bpm. Laboratory evaluation was remarkable for WBC count 17.9, lactic acid 0.8, troponin less than 0.012. Review of systems: Pertinent positives and negatives as discussed in HPI, a complete review of systems was performed and all other systems are negative. Physical examination: General: non toxic, no distress, appears at stated age, obese Derm: no unusual rashes/lesions no unusual ecchymoses, warm, dry Head: atraumatic, normocephalic, symmetric Eyes: EOMI, no lid lag, anicteric sclera, pupils equal round reactive to light ENT: Nose and ears atraumatic, no thrush, no pharyngeal erythema Neck: No thyromegaly, no cervical lymphadenopathy, trachea midline, supple Mouth: no lip lesion, mucus membranes moist Cardiovascular: S1S2 reg, no murmur, positive posterior tibial pulse bilateral, no edema, capillary refill less than 2 seconds Lungs: CTA bilateral, no rhonchi, no rales , no accessory muscle use Abdominal: soft, nontender to palpation, no guarding, no appreciable organomegaly, normal bowel sounds Ext: no gross muscle atrophy, muscle strength 5 out of 5 in all 4 extremities grossly, no contractures, Neuro: CN II-XI grossly intact, light touch intact all 4 extremities, finger to nose within normal limits, Psych: Alert, oriented, appropriate affect Assessment/plan Intractable nausea and vomiting in setting of gastroparesis -Continue with antiemetics -IV fluids -Clear liquid diet -Pain control -Abdominal pain likely due to ongoing vomiting SIRS without obvious infectious source, leukocytosis suspected due to acute stressor with nausea and vomiting -Continue with above management DVT prophylaxis -Heparin subcu The patient is admitted with an anticipated less than 2 midnight stay for evaluation of nausea and vomiting CODE STATUS: Full Code Discussed with: Patient Anticipated discharge date: in am Anticipated discharge place: Home Past Medical History Past Medical History: Asthma, Blood Disorder, Cancer, Eye Disorder, Fibromyalgia, GERD/Reflux, Rheumatoid Arthritis (RA), Sleep Apnea/CPAP/BIPAP, Thyroid Disorder Additional Past Medical History / Comment(s): Spinal cord injury, brain injury with resultant chronic neck, bilateral shoulder and back pain, coordination and memory problems. IgA Deficiency. States "can only have IgA deficient blood only or I will have an Anaphylactic Reaction." Chronic Interstitial Cystitis, Gastroparesis. CPAP use. Skin cancer 2 yrs ago on back. Bilateral Macular Degeneration. History of Any Multi-Drug Resistant Organisms: MRSA Date of last positivie culture/infection: 2015 MDRO Source:: Right Inner Thigh Past Surgical History: Hysterectomy Additional Past Surgical History / Comment(s): Spinal fusion, bilateral bunionectomy, skin cancer removed from back. Past Anesthesia/Blood Transfusion Reactions: No Reported Reaction, Motion Sickness Additional Past Anesthesia/Blood Transfusion Reaction / Comment(s): No history of blood transfusion. IgA Deficiency, can only have IgA Deficient blood or will have Anaphylactic Reaction. Past Psychological History: Anxiety, PTSD Smoking Status: Never smoker Past Alcohol Use History: None Reported Past Drug Use History: Marijuana - Past Family History Father Family Medical History: Cancer, Seizure Disorder Additional Family Medical History / Comment(s): Prostate Cancer. Mother Family Medical History: Cancer Additional Family Medical History / Comment(s): Skin cancer. Medications and Allergies Home Medications Medication Instructions Recorded Confirmed Type DULoxetine HCL [Cymbalta] 60 mg PO DAILY 10/19/20 10/21/21 History EPINEPHrine (Auto Inject) [Epipen] 0.3 mg IM ONCE PRN 10/19/20 10/21/21 History Gabapentin [Neurontin] 300 mg PO DAILY 10/19/20 10/21/21 History Levothyroxine Sodium [Synthroid] 75 mcg PO DAILY 10/19/20 10/21/21 History Omeprazole 20 mg PO DAILY 10/19/20 10/21/21 History hydrOXYzine pamoate [Vistaril] 25 mg PO HS 10/19/20 10/21/21 History oxyCODONE-APAP 5-325MG [Percocet 1 tab PO BID PRN 10/19/20 10/21/21 History 5-325 mg] tiZANidine HCL 4 mg PO TID PRN 10/19/20 10/21/21 History diazePAM [Valium] 5 mg PO HS 07/05/21 10/21/21 History ALPRAZolam [Xanax] 0.5 mg PO DIRECTED PRN 10/20/21 10/21/21 History DULoxetine HCL [Cymbalta] 30 mg PO DAILY 10/20/21 10/21/21 History Diazepam [Valium] 5 mg PO BID PRN 10/20/21 10/21/21 History Gabapentin 900 mg PO HS 10/20/21 10/21/21 History Rimegepant Sulfate [Nurtec Odt] 75 mg PO DAILY PRN 10/20/21 10/21/21 History Allergies Allergy/AdvReac Type Severity Reaction Status Date / Time ciprofloxacin [From Cipro] Allergy Rash/Hives Verified 10/21/21 12:16 cyclobenzaprine Allergy Swelling Verified 10/21/21 12:16 [From Flexeril] Iodinated Contrast Media Allergy Anaphylaxis Verified 10/21/21 12:16 latex Allergy Anaphylaxis Verified 10/21/21 12:16 levofloxacin [From Levaquin] Allergy Rash/Hives Verified 10/21/21 12:16 metronidazole [From Flagyl] Allergy Swelling Verified 10/21/21 12:16 sulfamethoxazole Allergy Rash/Hives Verified 10/21/21 12:16 [From Bactrim] trimethoprim [From Bactrim] Allergy Rash/Hives Verified 10/21/21 12:16 haloperidol [From Haldol] AdvReac Hallucinati Verified 10/21/21 12:16 ons Physical Exam Vitals: Vital Signs Temp Pulse Pulse Resp BP Pulse Ox 10/21/21 21:08 103 H 18 132/91 97 10/21/21 20:46 91 18 132/91 98 10/21/21 16:53 101 H 16 112/76 99 10/21/21 15:09 101 H 10/21/21 12:16 98.2 F 107 H 18 151/97 98 Intake and Output 10/21/21 10/21/21 10/21/21 06:59 14:59 22:59 Other: Weight 90.718 kg Results CBC & Chem 7: 10/21/21 20:51 10/21/21 13:29 Labs: Abnormal Lab Results - Last 24 Hours (Table) 10/21/21 10/21/21 10/21/21 Range/Units 13:29 13:29 19:52 WBC 17.9 H (3.8-10.6) k/uL Hct 47.6 H (34.0-46.0) % Neutrophils # 16.1 H (1.3-7.7) k/uL Lymphocytes # 0.7 L (1.0-4.8) k/uL Chloride 108 H (98-107) mmol/L Glucose 104 H (74-99) mg/dL Urine Appearance Cloudy H (Clear) Urine Protein Trace H (Negative) Urine Ketones 4+ H (Negative) Ur Squamous Epith Cells 13 H (0-4) /hpf Amorphous Sediment Occasional H (None) /hpf Urine Bacteria Rare H (None) /hpf Urine Mucus Few H (None) /hpf 10/21/21 Range/Units 20:51 WBC 13.7 H (3.8-10.6) k/uL Hct (34.0-46.0) % Neutrophils # 11.5 H (1.3-7.7) k/uL Lymphocytes # (1.0-4.8) k/uL Chloride (98-107) mmol/L Glucose (74-99) mg/dL Urine Appearance (Clear) Urine Protein (Negative) Urine Ketones (Negative) Ur Squamous Epith Cells (0-4) /hpf Amorphous Sediment (None) /hpf Urine Bacteria (None) /hpf Urine Mucus (None) /hpf
[2021-10-22 07:48] LABS: Basophils # (A) 0.1 k/uL (0-0.2); Basophils % (A) 0 %; Eosinophils % (A) 0 %; HCT 42.9 % (34.0-46.0); HGB 13.6 gm/dL (11.4-16.0); Lymphocytes # (A) 1.6 k/uL (1.0-4.8); Lymphocytes % (A) 13 %; MCH 29.2 pg (25.0-35.0); MCHC 31.6 g/dL (31.0-37.0); MCV 92.5 fL (80.0-100.0); Mean Platelet Volume 8.1; Monocytes # (A) 0.8 k/uL (0-1.0); Monocytes % (A) 6 %; Neutrophils # (A) 9.9 k/uL (1.3-7.7); Neutrophils % (A) 79 %; Platelet Count 298 k/uL (150-450); RBC 4.64 m/uL (3.80-5.40); RDW 13.2 % (11.5-15.5); WBC 12.5 k/uL (3.8-10.6)
[2021-10-22] MEDS ORDERED: ONDANSETRON 4 MG/2 ML VIAL IVP PRN (07:50)
[2021-10-22] MEDS ORDERED: MELATONIN 3 MG TABLET PO PRN (07:50)
[2021-10-22] MEDS ORDERED: HYDROcodone/APAP 5-325MG 1 EACH TAB PO PRN (07:50)
[2021-10-22] MEDS ORDERED: ACETAMINOPHEN TAB 325 MG TAB PO PRN (07:50)
[2021-10-22] MEDS ORDERED: oxyCODONE-APAP 5-325MG 1 EACH TAB PO PRN (07:51)
[2021-10-22] MEDS ORDERED: ALPRAZolam 0.5 MG TAB PO PRN (07:51)
[2021-10-22] MEDS ORDERED: NON FORMULARY DRUG (Rimegepant Sulfate [Nurtec Odt] 75 MG Tablet) PO PRN (07:51)
[2021-10-22] MEDS ORDERED: METOCLOPRAMIDE 5 MG/ML 2 ML VIAL IVP PRN (07:53)
[2021-10-22] MEDS ORDERED: MORPHINE SULFATE 2 MG/ML SYRINGE IVP PRN (07:54)
[2021-10-22] MEDS ORDERED: DEXTROSE 5%-0.45% NACL 1,000 ML IV SCH (08:00)
[2021-10-22 08:03] LABS: ALT 16 U/L (4-34); AST 17 U/L (14-36); African American GFR (CKD) >90 (>60 ml/min/1.73 sqM); Albumin 3.8 g/dL (3.5-5.0); Alkaline Phosphatase 63 U/L (38-126); Anion Gap 10 mmol/L; Blood Urea Nitrogen 9 mg/dL (7-17); Calcium 8.4 mg/dL (8.4-10.2); Carbon Dioxide 22 mmol/L (22-30); Chloride 107 mmol/L (98-107); Glucose 70 mg/dL (74-99); Non-African American GFR(CKD) >90 (>60 ml/min/1.73 sqM); Potassium 3.5 mmol/L (3.5-5.1); Sodium 139 mmol/L (137-145); Total Bilirubin 0.7 mg/dL (0.2-1.3); Total Protein 6.4 g/dL (6.3-8.2)
[2021-10-22] MEDS ORDERED: LEVOTHYROXINE 75 MCG TAB PO SCH (09:00)
[2021-10-22] MEDS ORDERED: GABAPENTIN 300 MG CAP PO SCH ×2 (09:00→21:00)
[2021-10-22] MEDS ORDERED: DULoxetine HCL 60 MG CAPSULE.DR PO SCH (09:00)
[2021-10-22] MEDS ORDERED: DULoxetine HCL 30 MG CAPSULE.DR PO SCH (09:00)
[2021-10-22] MEDS: HEPARIN SODIUM,PORCINE/PF 5,000 UNIT/0.5 ML SYRINGE SQ SCH ×2 (09:23→14:48)
[2021-10-22 13:20] VITALS: BP 156/87; PULSE 83; RESP 16; TEMP 98.6
[2021-10-22] MEDS ORDERED: diazePAM 5 MG TAB PO PRN (13:22)
[2021-10-22] MEDS ORDERED: PANTOPRAZOLE 40 MG/10 ML VIAL IVP SCH (17:15)
--- NOTE | 2021-10-22 17:36 | P.PN ---
Subjective Progress Note Date: 10/22/21 Principal diagnosis: nausea and vomiting Patient is a 40-year-old female with history of gastroparesis, spinal cord injury, brain injury, fibromyalgia, GERD who presented to the hospital with intractable nausea and vomiting. In the ER she underwent an extensive evaluation. White blood cell count 13.7, urinalysis showed ketones 4+, and initial vital signs showed that she was slightly tachycardic. She was given antiemetics and IV fluids in the ER. She was admitted for further monitoring. Patient seen and examined at bedside. She states she is following with GI out of [facility] for further evaluation of her gastroparesis. She has a scope and a gastric emptying study planned as an outpatient. Typically at home she takes Zofran and rectal Phenergan for nausea and vomiting. She states she was trying those things but was unable to tolerate any oral intake for 5 days and therefore presented to the emergency department. She is requesting to have IV Valium and she stated that waxes her and helps with her nausea. We discussed that we should try Reglan first and then she can try some oral Valium for relief with IV Valium does not appear to be indicated at this time. We also discussed that she should not be eating if she is requiring medications for nausea with her gastroparesis. We discussed that when she is able to come off of the IV antiemetics and tolerated diet she will be able to go home. General: non toxic, no distress, appears at stated age Derm: warm, dry Head: atraumatic, normocephalic, symmetric Eyes: EOMI, no lid lag, anicteric sclera Mouth: no lip lesion, mucus membranes moist Cardiovascular: S1S2 reg, no murmur, positive posterior tibial pulse bilateral, Lungs: CTA bilateral, no rhonchi, no rales , no accessory muscle use Abdominal: soft, tender to palpation periumbilical, no guarding, no appreciable organomegaly Ext: no gross muscle atrophy, no edema, no contractures Neuro: CN II-XI grossly intact, no focal neuro deficits Psych: Alert, oriented, appropriate affect Assessment/plan Intractable nausea and vomiting secondary to gastroparesis Clinical dehydration -Trial of IV Reglan, continue her home oral Valium -IV fluids -Nothing by mouth except for ice chips and popsicles, can advance her nausea is better for dinner -No indications for IV pain meds time. Services without evidence of infection likely secondary to intractable nausea and vomiting Chronic: Asthma without exacerbation Hypothyroidism Sleep apnea Spinal cord injury with chronic pain Brain injury IgA deficiency Fibromyalgia Anticipate home in a.m. If unable to tolerate oral still nauseated tomorrow with transition to inpatient status. Objective - Vital Signs Vital signs: Vital Signs Temp 98.6 F 10/22/21 13:19 Pulse 83 10/22/21 13:19 Resp 16 10/22/21 13:19 BP 156/87 10/22/21 13:19 Pulse Ox 98 10/22/21 13:19 Intake & Output 10/21/21 10/22/21 10/22/21 18:59 06:59 18:59 Intake Total 118 Balance 118 Weight 90.718 kg 90.718 kg Intake: Oral 118 Other: Voiding Method Toilet # Voids 1 2 - Labs CBC & Chem 7: 10/22/21 06:46 10/22/21 06:46 Labs: Abnormal Lab Results - Last 24 Hours (Table) 10/21/21 10/21/21 10/22/21 Range/Units 19:52 20:51 06:46 WBC 13.7 H 12.5 H (3.8-10.6) k/uL Neutrophils # 11.5 H 9.9 H (1.3-7.7) k/uL Glucose (74-99) mg/dL Urine Appearance Cloudy H (Clear) Urine Protein Trace H (Negative) Urine Ketones 4+ H (Negative) Ur Squamous Epith Cells 13 H (0-4) /hpf Amorphous Sediment Occasional H (None) /hpf Urine Bacteria Rare H (None) /hpf Urine Mucus Few H (None) /hpf 10/22/21 Range/Units 06:46 WBC (3.8-10.6) k/uL Neutrophils # (1.3-7.7) k/uL Glucose 70 L (74-99) mg/dL Urine Appearance (Clear) Urine Protein (Negative) Urine Ketones (Negative) Ur Squamous Epith Cells (0-4) /hpf Amorphous Sediment (None) /hpf Urine Bacteria (None) /hpf Urine Mucus (None) /hpf
--- NOTE | 2021-10-22 19:21 | P.DS ---
Providers Date of admission: 10/21/21 21:08 Expected date of discharge: 10/22/21 Attending physician: Mariya Laughlin MD Primary care physician: Bernardo Fishman [facility] Course: Discharge Diagnosis: Intractable nausea and vomiting secondary to gastroparesis Clinical dehydration SIRS without evidence of infection likely secondary to intractable nausea and vomiting Asthma without exacerbation Hypothyroidism Sleep apnea Spinal cord injury with chronic pain Brain injury IgA deficiency Fibromyalgia Hospital Course: Patient is a 40-year-old female with history of gastroparesis, spinal cord injury, brain injury, fibromyalgia, GERD who presented to the hospital with intractable nausea and vomiting. In the ER she underwent an extensive evaluation. White blood cell count 13.7, urinalysis showed ketones 4+, and initial vital signs showed that she was slightly tachycardic. She was given antiemetics and IV fluids in the ER. She was admitted for further monitoring. She was started on antiemetics and IV fluids. She get a dose of her oral Valium. Her nausea and vomiting resolved. She was able to tolerate full liquids and wanted to be discharged home. Follow-up: Dr. Fishman in 1-2 days, her anatomic pathologist she has been seeing out of [facility] in the next 1-2 weeks for further monitoring. She has an EGD and gastric emptying study controlled with them her patient. For physical exam see progress note same date A total of 25 minutes of time were spent preparing this complex discharge summary . Patient Condition at Discharge: Good Plan - Discharge Summary New Discharge Prescriptions: New Ondansetron [Zofran] 4 mg PO Q8HR PRN #30 tab PRN Reason: Nausea Continue EPINEPHrine (Auto Inject) [Epipen] 0.3 mg IM ONCE PRN PRN Reason: Anaphylaxis DULoxetine HCL [Cymbalta] 60 mg PO DAILY Levothyroxine Sodium [Synthroid] 75 mcg PO DAILY diazePAM [Valium] 5 mg PO HS ALPRAZolam [Xanax] 0.5 mg PO DIRECTED PRN PRN Reason: Anxiety Gabapentin 900 mg PO HS Diazepam [Valium] 5 mg PO BID PRN PRN Reason: Anxiety Rimegepant Sulfate [Nurtec Odt] 75 mg PO DAILY PRN PRN Reason: Migraine Headache oxyCODONE-APAP 5-325MG [Percocet 5-325 mg] 1 tab PO BID PRN PRN Reason: Pain tiZANidine HCL 4 mg PO TID PRN PRN Reason: Muscle Pain hydrOXYzine pamoate [Vistaril] 25 mg PO HS Gabapentin [Neurontin] 300 mg PO DAILY Omeprazole 20 mg PO DAILY DULoxetine HCL [Cymbalta] 30 mg PO DAILY Discharge Medication List DULoxetine HCL [Cymbalta] 60 mg PO DAILY 10/19/20 [History] EPINEPHrine (Auto Inject) [Epipen] 0.3 mg IM ONCE PRN 10/19/20 [History] Gabapentin [Neurontin] 300 mg PO DAILY 10/19/20 [History] Levothyroxine Sodium [Synthroid] 75 mcg PO DAILY 10/19/20 [History] Omeprazole 20 mg PO DAILY 10/19/20 [History] hydrOXYzine pamoate [Vistaril] 25 mg PO HS 10/19/20 [History] oxyCODONE-APAP 5-325MG [Percocet 5-325 mg] 1 tab PO BID PRN 10/19/20 [History] tiZANidine HCL 4 mg PO TID PRN 10/19/20 [History] diazePAM [Valium] 5 mg PO HS 07/05/21 [History] ALPRAZolam [Xanax] 0.5 mg PO DIRECTED PRN 10/20/21 [History] DULoxetine HCL [Cymbalta] 30 mg PO DAILY 10/20/21 [History] Diazepam [Valium] 5 mg PO BID PRN 10/20/21 [History] Gabapentin 900 mg PO HS 10/20/21 [History] Rimegepant Sulfate [Nurtec Odt] 75 mg PO DAILY PRN 10/20/21 [History] Ondansetron [Zofran] 4 mg PO Q8HR PRN #30 tab 10/22/21 [Rx] Follow up Appointment(s)/Referral(s): Bernardo Fishman DO [Primary Care Provider] - 1-2 days Patient Instructions/Handouts: Soft Diet (DC), Full Liquid Diet (DC) Activity/Diet/Wound Care/Special Instructions: Activity: as tolerated Diet: Full liquis X 24 hours, then soft and bland diet for 2-3 days Special Instructions: Please continue follow-up with your anatomic pathologist A refill was sent for your oral zofran Discharge Disposition: HOME SELF-CARE
[2021-10-22] MEDS ORDERED: diazePAM 5 MG TAB PO SCH (21:00)
[2021-10-22] MEDS ORDERED: hydrOXYzine pamoate 25 MG CAP PO SCH (21:00)
== END 2021-10-22 20:00 | disposition home or self-care (01) ==
LOC: EC 12:03 → 6NMEDSUR 21:08
PROVIDERS: ADMIT Internal Medicine; ATTEND Internal Medicine
DX: K31.84 Gastroparesis (principal); E86.0 Dehydration; R65.10 Systemic inflammatory response syndrome (SIRS) of non-infectious origin without acute organ dysfunction; J45.909 Unspecified asthma, uncomplicated; E03.9 Hypothyroidism, unspecified; G47.30 Sleep apnea, unspecified; G89.29 Other chronic pain; D80.2 Selective deficiency of immunoglobulin A [IgA]; M79.7 Fibromyalgia; K21.9 Gastro-esophageal reflux disease without esophagitis; M06.9 Rheumatoid arthritis, unspecified; M54.2 Cervicalgia; M54.9 Dorsalgia, unspecified; M25.512 Pain in left shoulder; M25.511 Pain in right shoulder; F41.9 Anxiety disorder, unspecified; F43.10 Post-traumatic stress disorder, unspecified; R07.9 Chest pain, unspecified; K29.70 Gastritis, unspecified, without bleeding; N30.10 Interstitial cystitis (chronic) without hematuria; R27.8 Other lack of coordination; R41.3 Other amnesia; E66.9 Obesity, unspecified; Z68.34 Body mass index [BMI] 34.0-34.9, adult; Z79.899 Other long term (current) drug therapy; Z79.890 Hormone replacement therapy; Z88.5 Allergy status to narcotic agent; Z88.2 Allergy status to sulfonamides; Z88.8 Allergy status to other drugs, medicaments and biological substances; Z88.1 Allergy status to other antibiotic agents; Z91.041 Radiographic dye allergy status; Z91.040 Latex allergy status; Z87.828 Personal history of other (healed) physical injury and trauma; Z85.828 Personal history of other malignant neoplasm of skin; Z87.820 Personal history of traumatic brain injury; Z86.14 Personal history of Methicillin resistant Staphylococcus aureus infection; Z90.710 Acquired absence of both cervix and uterus; Z98.1 Arthrodesis status; Z82.0 Family history of epilepsy and other diseases of the nervous system; Z82.49 Family history of ischemic heart disease and other diseases of the circulatory system; Z80.8 Family history of malignant neoplasm of other organs or systems
CPT/HCPCS: 96376; 96372; 96375 ×2; 96361; 96374; 99285; 36415; 93005; 80053 ×2; 83605; 83735; 84484 ×2; 85025 ×2; 85610; 85730; 81001; 81025; 71046; G0378 ×2; J2060; J2765; J2405 ×2; J2270; J1644

== ENCOUNTER → 2021-11-13 | Outpatient (CLI) | payer MEDICARE, OTHER ==
--- NOTE | 2021-11-14 09:50 | NM ---
EXAMINATION TYPE: NM gastric emptying static DATE OF EXAM: 11/13/2021 COMPARISON: NONE HISTORY: Nausea with vomiting Following administration of 1.7 mCi Tc 99m Sulfur Colloid with 3OZ EGGS, 4OZ WATER, TOAST, anterior a nd posterior projection images of the abdomen were obtained 10 minutes post ingestion and on delayed images. Patient Emptying Values 1 Hour 35 % 2 Hours 60 % 3 Hours 72 % 4 Hours 98 % Gastroesophagel reflux: None IMPRESSION: Gastric emptying: Within normal limits Gastroesophageal reflux: Not visualized
== END | disposition home or self-care (01) ==
LOC: RADNMMAIN 07:26
PROVIDERS: ATTEND Internal Medicine Gastroenterology
DX: K21.9 Gastro-esophageal reflux disease without esophagitis (principal)
CPT/HCPCS: 78264; A9541

== ENCOUNTER 2022-02-09 21:38 | Observation (INO) | payer MEDICARE, OTHER ==
[2022-02-09 22:33] LABS: Basophils # (A) 0.1 k/uL (0-0.2); Basophils % (A) 1 %; Eosinophils # (A) 0.4 k/uL (0-0.7); Eosinophils % (A) 4 %; HCT 43.8 % (34.0-46.0); HGB 14.2 gm/dL (11.4-16.0); Lymphocytes # (A) 2.1 k/uL (1.0-4.8); Lymphocytes % (A) 22 %; MCH 29.1 pg (25.0-35.0); MCHC 32.4 g/dL (31.0-37.0); MCV 89.8 fL (80.0-100.0); Mean Platelet Volume 10.1; Monocytes # (A) 0.7 k/uL (0-1.0); Monocytes % (A) 7 %; Neutrophils % (A) 64 %; Platelet Count 280 k/uL (150-450); RBC 4.88 m/uL (3.80-5.40); RDW 13.2 % (11.5-15.5); WBC 9.4 k/uL (3.8-10.6)
--- NOTE | 2022-02-09 22:39 | XR ---
EXAMINATION TYPE: XR foot complete RT DATE OF EXAM: 02/09/2022 COMPARISON: NONE HISTORY: Pain TECHNIQUE: 3 views FINDINGS: There is previous osteotomy of the first metatarsal head. I see no fracture nor dislocation . There is soft tissue swelling of the forefoot. The toes are intact. IMPRESSION: Soft tissue swelling. No fracture seen.
--- NOTE | 2022-02-09 22:40 | XR ---
EXAMINATION TYPE: XR chest 1V portable DATE OF EXAM: 02/09/2022 COMPARISON: 10/21/2021 HISTORY: Chest pain TECHNIQUE: 2 views FINDINGS: Heart is normal. Lungs are clear of infiltrate. No heart failure. There are no hilar masses . Bony thorax is intact. IMPRESSION: No active cardiopulmonary disease. No change
[2022-02-09 22:45] LABS: ALT 15 U/L (4-34); AST 19 U/L (14-36); African American GFR (CKD) >90 (>60 ml/min/1.73 sqM); Albumin 4.1 g/dL (3.5-5.0); Alkaline Phosphatase 90 U/L (38-126); Anion Gap 12 mmol/L; Blood Urea Nitrogen 12 mg/dL (7-17); Calcium 9.4 mg/dL (8.4-10.2); Carbon Dioxide 20 mmol/L (22-30); Chloride 104 mmol/L (98-107); Glucose 98 mg/dL (74-99); Magnesium 1.7 mg/dL (1.6-2.3); Non-African American GFR(CKD) 79 (>60 ml/min/1.73 sqM); Potassium 4.1 mmol/L (3.5-5.1); Sodium 136 mmol/L (137-145); Total Bilirubin 0.3 mg/dL (0.2-1.3); Total Protein 6.8 g/dL (6.3-8.2)
[2022-02-09 22:48] LABS: INR 0.9 (<1.2); Prothrombin Time 9.8 sec (9.0-12.0)
[2022-02-09 23:32] LABS: Partial Thromboplastin Time 19.1 sec (22.0-30.0)
[2022-02-10] MEDS ORDERED: KETOROLAC 15 MG/ML 1 ML VIAL IVP STA (01:36)
[2022-02-10] MEDS ORDERED: SODIUM CHLORIDE 0.9% 1,000 ML IV STA (01:36)
[2022-02-10] MEDS ORDERED: IPRATROPIUM-ALBUTEROL 3 ML NEB INHALATION STA (01:38)
--- NOTE | 2022-02-10 01:38 | ED ---
SOB HPI - General Chief Complaint: Chest Pain Stated Complaint: Shortness of breath; chest pain Time Seen by Provider: 02/10/22 01:03 Source: patient, RN notes reviewed, old records reviewed Mode of arrival: ambulatory Limitations: no limitations - History of Present Illness Initial Comments: This is a 41-year-old female presenting with persistent shortness of breath going on for 3-4 days now. Patient was seen at outside facility 2 days ago and was attempted to be admitted low she had to be transferred, patient prefer discharged at that time returns to our emergency department for further evaluation of shortness of breath. Patient also having chest pain. States her d-dimer was elevated at prior facility and is currently having right lower ext remity pain MD Complaint: shortness of breath, chest pain -: days(s) (3) Radiation: back Severity: moderate Severity scale (1-10): 7 Quality: sharp Consistency: constant Improves With: rest Worsens With: exertion, movement (Patient states she is short of breath even with getting dressed) Known History Of: asthma Context: anxiety Associated Symptoms: chest pain, pain with inspiration, cough Treatments Prior to Arrival: none - Related Data Home Medications Medication Instructions Recorded Confirmed DULoxetine HCL [Cymbalta] 60 mg PO DAILY 10/19/20 10/21/21 EPINEPHrine (Auto Inject) [Epipen] 0.3 mg IM ONCE PRN 10/19/20 10/21/21 Gabapentin [Neurontin] 300 mg PO DAILY 10/19/20 10/21/21 Levothyroxine Sodium [Synthroid] 75 mcg PO DAILY 10/19/20 10/21/21 Omeprazole 20 mg PO DAILY 10/19/20 10/21/21 hydrOXYzine pamoate [Vistaril] 25 mg PO HS 10/19/20 10/21/21 oxyCODONE-APAP 5-325MG [Percocet 1 tab PO BID PRN 10/19/20 10/21/21 5-325 mg] tiZANidine HCL 4 mg PO TID PRN 10/19/20 10/21/21 diazePAM [Valium] 5 mg PO HS 07/05/21 10/21/21 ALPRAZolam [Xanax] 0.5 mg PO DIRECTED PRN 10/20/21 10/21/21 DULoxetine HCL [Cymbalta] 30 mg PO DAILY 10/20/21 10/21/21 Gabapentin 900 mg PO HS 10/20/21 10/21/21 Rimegepant Sulfate [Nurtec Odt] 75 mg PO DAILY PRN 10/20/21 10/21/21 diazePAM [Valium] 5 mg PO BID PRN 10/20/21 10/21/21 Previous Rx's Medication Instructions Recorded Ondansetron [Zofran] 4 mg PO Q8HR PRN #30 tab 10/22/21 Allergies Allergy/AdvReac Type Severity Reaction Status Date / Time ciprofloxacin [From Cipro] Allergy Rash/Hives Verified 02/09/22 21:47 cyclobenzaprine Allergy Swelling Verified 02/09/22 21:47 [From Flexeril] Iodinated Contrast Media Allergy Anaphylaxis Verified 02/09/22 21:47 latex Allergy Anaphylaxis Verified 02/09/22 21:47 levofloxacin [From Levaquin] Allergy Rash/Hives Verified 02/09/22 21:47 metronidazole [From Flagyl] Allergy Swelling Verified 02/09/22 21:47 sulfamethoxazole Allergy Rash/Hives Verified 02/09/22 21:47 [From Bactrim] trimethoprim [From Bactrim] Allergy Rash/Hives Verified 02/09/22 21:47 haloperidol [From Haldol] AdvReac Hallucinati Verified 02/09/22 21:47 ons Review of Systems ROS Statement: Those systems with pertinent positive or pertinent negative responses have been documented in the HPI. ROS Other: All systems not noted in ROS Statement are negative. Past Medical History Past Medical History: Asthma, Blood Disorder, Cancer, Eye Disorder, Fibromyalgia, GERD/Reflux, Hypertension, Rheumatoid Arthritis (RA), Sleep Apnea/CPAP/BIPAP, Thyroid Disorder Additional Past Medical History / Comment(s): Spinal cord injury, brain injury with resultant chronic neck, bilateral shoulder and back pain, coordination and memory problems. IgA Deficiency. States "can only have IgA deficient blood only or I will have an Anaphylactic Reaction." Chronic Interstitial Cystitis, Gastroparesis. CPAP use. Skin cancer 2 yrs ago on back. Bilateral Macular Degeneration. History of Any Multi-Drug Resistant Organisms: MRSA Date of last positivie culture/infection: 2015 MDRO Source:: Right Inner Thigh Past Surgical History: Hysterectomy Additional Past Surgical History / Comment(s): Spinal fusion, bilateral bunionectomy, skin cancer removed from back. Past Anesthesia/Blood Transfusion Reactions: No Reported Reaction, Motion Sickness Additional Past Anesthesia/Blood Transfusion Reaction / Comment(s): No history of blood transfusion. IgA Deficiency, can only have IgA Deficient blood or will have Anaphylactic Reaction. Past Psychological History: Anxiety, PTSD Smoking Status: Never smoker Past Alcohol Use History: None Reported Past Drug Use History: Marijuana - Past Family History Father Family Medical History: Cancer, Seizure Disorder Additional Family Medical History / Comment(s): Prostate Cancer. Mother Family Medical History: Cancer Additional Family Medical History / Comment(s): Skin cancer. General Exam Limitations: no limitations General appearance: alert, in no apparent distress, anxious Head exam: Present: atraumatic, normocephalic, normal inspection Eye exam: Present: normal appearance, PERRL, EOMI. Absent: scleral icterus, conjunctival injection, periorbital swelling ENT exam: Present: normal exam, mucous membranes moist Neck exam: Present: normal inspection. Absent: tenderness, meningismus, lymphadenopathy Respiratory exam: Present: normal lung sounds bilaterally. Absent: respiratory distress, wheezes, rales, rhonchi, stridor Cardiovascular Exam: Present: normal rhythm, tachycardia, normal heart sounds. Absent: systolic murmur, diastolic murmur, rubs, gallop, clicks GI/Abdominal exam: Present: soft, normal bowel sounds. Absent: distended, tenderness, guarding, rebound, rigid Extremities exam: Present: normal inspection, full ROM, normal capillary refill. Absent: tenderness, pedal edema, joint swelling, calf tenderness Back exam: Present: normal inspection Neurological exam: Present: alert, oriented X3, CN II-XII intact Psychiatric exam: Present: normal affect, normal mood Skin exam: Present: warm, dry, intact, normal color. Absent: rash Course Vital Signs 02/09/22 02/10/22 02/10/22 21:42 02:45 03:28 Temperature 98.4 F Pulse Rate 115 H 85 78 Respiratory 26 H 16 Rate Blood Pressure 159/102 141/101 O2 Sat by Pulse 96 95 Oximetry 02/10/22 02/10/22 03:38 03:53 Temperature Pulse Rate 80 90 Respiratory 16 Rate Blood Pressure 142/88 O2 Sat by Pulse 97 Oximetry - Reevaluation(s) Reevaluation #1: 02/10/22 02:02 Medical record is reviewed 02/10/22 03:28 Patient has persistent chest pain here in the ER Reevaluation #2: 02/10/22 03:28 Patient has continued chest pain shortness of breath Reevaluation #3: 02/10/22 03:28 Patient informed of results and questions have been answered - Consultations Consultation #1: Spoke with sound who agrees for admission Medical Decision Making - Medical Decision Making 41 female to the emergency department for evaluation of chest pain. Patient has persistent shortness of breath and chest pain here in the emergency room. Patient be admitted for cardiology evaluation and management - Lab Data Result diagrams: 02/09/22 21:55 02/09/22 21:55 Lab Results 02/09/22 02/09/22 02/09/22 Range/Units 21:55 21:55 21:55 WBC 9.4 (3.8-10.6) k/uL RBC 4.88 (3.80-5.40) m/uL Hgb 14.2 (11.4-16.0) gm/dL Hct 43.8 (34.0-46.0) % MCV 89.8 (80.0-100.0) fL MCH 29.1 (25.0-35.0) pg MCHC 32.4 (31.0-37.0) g/dL RDW 13.2 (11.5-15.5) % Plt Count 280 (150-450) k/uL MPV 10.1 Neutrophils % 64 % Lymphocytes % 22 % Monocytes % 7 % Eosinophils % 4 % Basophils % 1 % Neutrophils # 6.0 (1.3-7.7) k/uL Lymphocytes # 2.1 (1.0-4.8) k/uL Monocytes # 0.7 (0-1.0) k/uL Eosinophils # 0.4 (0-0.7) k/uL Basophils # 0.1 (0-0.2) k/uL PT 9.8 (9.0-12.0) sec INR 0.9 (<1.2) APTT 19.1 L (22.0-30.0) sec D-Dimer (<0.60) mg/L FEU Sodium 136 L (137-145) mmol/L Potassium 4.1 (3.5-5.1) mmol/L Chloride 104 (98-107) mmol/L Carbon Dioxide 20 L (22-30) mmol/L Anion Gap 12 mmol/L BUN 12 (7-17) mg/dL Creatinine 0.90 (0.52-1.04) mg/dL Est GFR (CKD-EPI)AfAm >90 (>60 ml/min/1.73 sqM) Est GFR (CKD-EPI)NonAf 79 (>60 ml/min/1.73 sqM) Glucose 98 (74-99) mg/dL Calcium 9.4 (8.4-10.2) mg/dL Magnesium 1.7 (1.6-2.3) mg/dL Total Bilirubin 0.3 (0.2-1.3) mg/dL AST 19 (14-36) U/L ALT 15 (4-34) U/L Alkaline Phosphatase 90 (38-126) U/L Troponin I (0.000-0.034) ng/mL NT-Pro-B Natriuret Pep pg/mL Total Protein 6.8 (6.3-8.2) g/dL Albumin 4.1 (3.5-5.0) g/dL 02/09/22 02/10/22 02/10/22 Range/Units 21:55 01:44 01:44 WBC (3.8-10.6) k/uL RBC (3.80-5.40) m/uL Hgb (11.4-16.0) gm/dL Hct (34.0-46.0) % MCV (80.0-100.0) fL MCH (25.0-35.0) pg MCHC (31.0-37.0) g/dL RDW (11.5-15.5) % Plt Count (150-450) k/uL MPV Neutrophils % % Lymphocytes % % Monocytes % % Eosinophils % % Basophils % % Neutrophils # (1.3-7.7) k/uL Lymphocytes # (1.0-4.8) k/uL Monocytes # (0-1.0) k/uL Eosinophils # (0-0.7) k/uL Basophils # (0-0.2) k/uL PT (9.0-12.0) sec INR (<1.2) APTT (22.0-30.0) sec D-Dimer 0.77 H (<0.60) mg/L FEU Sodium (137-145) mmol/L Potassium (3.5-5.1) mmol/L Chloride (98-107) mmol/L Carbon Dioxide (22-30) mmol/L Anion Gap mmol/L BUN (7-17) mg/dL Creatinine (0.52-1.04) mg/dL Est GFR (CKD-EPI)AfAm (>60 ml/min/1.73 sqM) Est GFR (CKD-EPI)NonAf (>60 ml/min/1.73 sqM) Glucose (74-99) mg/dL Calcium (8.4-10.2) mg/dL Magnesium (1.6-2.3) mg/dL Total Bilirubin (0.2-1.3) mg/dL AST (14-36) U/L ALT (4-34) U/L Alkaline Phosphatase (38-126) U/L Troponin I <0.012 (0.000-0.034) ng/mL NT-Pro-B Natriuret Pep 69 pg/mL Total Protein (6.3-8.2) g/dL Albumin (3.5-5.0) g/dL - Radiology Data Radiology results: report reviewed (CT chest is negative for acute disease), image reviewed Disposition Clinical Impression: Chest pain, Shortness of breath Disposition: ADMITTED IP TO THIS [facility] Condition: Undetermined Is patient prescribed a controlled substance at d/c from ED?: No Time of Disposition: 04:00
[2022-02-10] MEDS ORDERED: diphenhydrAMINE 50 MG/ML 1 ML VIAL IVP STA (02:00)
[2022-02-10] MEDS ORDERED: FAMOTIDINE 20 MG/2 ML VIAL IV STA (02:00)
[2022-02-10] MEDS ORDERED: methylPREDNISolone SOD SUCCI 125 MG/2 ML VIAL IV STA (02:00)
[2022-02-10] MEDS ORDERED: ASPIRIN 81 MG PO STA (03:25)
[2022-02-10] MEDS ORDERED: MORPHINE SULFATE 4 MG/ML SYRINGE IV PRN (03:25)
[2022-02-10] MEDS ORDERED: NITROGLYCERIN SL TABS 0.4 MG TAB SUBLINGUAL PRN (03:25)
--- NOTE | 2022-02-10 03:47 | CT ---
EXAMINATION TYPE: CT angio chest DATE OF EXAM: 02/10/2022 COMPARISON: 10/20/2021 HISTORY: SOB and Chest pain the last two days. CT DLP: 669.6 mGycm Automated exposure control for dose reduction was used. CONTRAST: Performed with IV Contrast, patient injected with 90ml mL of Isovue 370. Images obtained from the thoracic inlet to the diaphragm with the IV contrast. There are Three-D post processed images. There is no mediastinal adenopathy. Thoracic aorta is intact. No aneurysm or dissection. Heart size i s normal. No pericardial effusion. There are no hilar masses. There is normal contrast opacification of the pulmonary arteries. No filling defect. The lungs are clear of infiltrate. No evidence of a pulmonary mass. No pleural effusion. The thoracic spine is intact. No compression fracture. Sternum is intact. IMPRESSION: Negative exam. No evidence of pulmonary embolism. No adverse change compared to old exam. Normal hear t.
--- NOTE | 2022-02-10 05:01 | P.HPIM ---
History of Present Illness H&P Date: 02/10/22 The patient is a 41-year-old female with a PMH of gastroparesis, hypertension, and hypothyroidism who presents to the emergency room with complaints of shortness of breath and chest discomfort. The patient reports that over the past several weeks, she has been experiencing gradually worsening exertional dyspnea. She reports that she is unable to perform her ADLs due to her shortness of breath. She also reports a single episode of sharp left-sided chest discomfort which woke her up from sleep the night prior at 3 AM. The pain was pleuritic, 10 out of 10, radiating to the left shoulder, and lasted for roughly an hour before resolving spontaneously. She reports no further episodes of chest discomfort. Denied experiencing fever, chills, cough, nausea, vomiting, abdominal pain, diarrhea. Chest CT in the emergency room was unremarkable. Review of systems: Pertinent positives and negatives as discussed in HPI, a complete review of systems was performed and all other systems are negative. Physical examination: General: non toxic, no distress, appears at stated age, obese Derm: no unusual rashes/lesions, warm Head: atraumatic, normocephalic, symmetric Eyes: EOMI, no lid lag, anicteric sclera, pupils equal round reactive to light ENT: Nose and ears atraumatic Neck: No cervical lymphadenopathy, trachea midline, supple Mouth: no lip lesion, mucus membranes moist Cardiovascular: S1S2 reg, no murmur, positive dorsalis pedis pulse bilateral, no edema Lungs: CTA bilateral, no rhonchi, no rales, no accessory muscle use Abdominal: soft, nontender to palpation, no guarding Ext: muscle strength 5 out of 5 in all 4 extremities grossly, no gross muscle atrophy, no contractures, Neuro: CN II-XI grossly intact, no gross focal neuro deficits Psych: Alert, oriented, appropriate affect Assessment/plan Shortness of breath and chest discomfort, rule out ACS -Cardiology consulted -Cardiac monitoring -Trend troponin -Echocardiogram -Aspirin, statin Chronic conditions: Hypertension, gastroparesis, hypothyroidism -Continue with home meds DVT prophylaxis -Heparin subcu The patient is admitted with an anticipated less than 2 midnight stay for evaluation of chest pain CODE STATUS: Full Code Discussed with: Patient Anticipated discharge date: in am Anticipated discharge place: Home Past Medical History Past Medical History: Asthma, Blood Disorder, Cancer, Eye Disorder, Fibromyalgia, GERD/Reflux, Hypertension, Rheumatoid Arthritis (RA), Sleep Apnea/CPAP/BIPAP, Thyroid Disorder Additional Past Medical History / Comment(s): Spinal cord injury, brain injury with resultant chronic neck, bilateral shoulder and back pain, coordination and memory problems. IgA Deficiency. States "can only have IgA deficient blood only or I will have an Anaphylactic Reaction." Chronic Interstitial Cystitis, Gastroparesis. CPAP use. Skin cancer 2 yrs ago on back. Bilateral Macular Degeneration. History of Any Multi-Drug Resistant Organisms: MRSA Date of last positivie culture/infection: 2015 MDRO Source:: Right Inner Thigh Past Surgical History: Hysterectomy Additional Past Surgical History / Comment(s): Spinal fusion, bilateral bunionectomy, skin cancer removed from back. Past Anesthesia/Blood Transfusion Reactions: No Reported Reaction, Motion Sickness Additional Past Anesthesia/Blood Transfusion Reaction / Comment(s): No history of blood transfusion. IgA Deficiency, can only have IgA Deficient blood or will have Anaphylactic Reaction. Past Psychological History: Anxiety, PTSD Smoking Status: Never smoker Past Alcohol Use History: None Reported Past Drug Use History: Marijuana - Past Family History Father Family Medical History: Cancer, Seizure Disorder Additional Family Medical History / Comment(s): Prostate Cancer. Mother Family Medical History: Cancer Additional Family Medical History / Comment(s): Skin cancer. Medications and Allergies Home Medications Medication Instructions Recorded Confirmed Type DULoxetine HCL [Cymbalta] 60 mg PO DAILY 10/19/20 10/21/21 History EPINEPHrine (Auto Inject) [Epipen] 0.3 mg IM ONCE PRN 10/19/20 10/21/21 History Gabapentin [Neurontin] 300 mg PO DAILY 10/19/20 10/21/21 History Levothyroxine Sodium [Synthroid] 75 mcg PO DAILY 10/19/20 10/21/21 History Omeprazole 20 mg PO DAILY 10/19/20 10/21/21 History hydrOXYzine pamoate [Vistaril] 25 mg PO HS 10/19/20 10/21/21 History oxyCODONE-APAP 5-325MG [Percocet 1 tab PO BID PRN 10/19/20 10/21/21 History 5-325 mg] tiZANidine HCL 4 mg PO TID PRN 10/19/20 10/21/21 History diazePAM [Valium] 5 mg PO HS 07/05/21 10/21/21 History ALPRAZolam [Xanax] 0.5 mg PO DIRECTED PRN 10/20/21 10/21/21 History DULoxetine HCL [Cymbalta] 30 mg PO DAILY 10/20/21 10/21/21 History Gabapentin 900 mg PO HS 10/20/21 10/21/21 History Rimegepant Sulfate [Nurtec Odt] 75 mg PO DAILY PRN 10/20/21 10/21/21 History diazePAM [Valium] 5 mg PO BID PRN 10/20/21 10/21/21 History Ondansetron [Zofran] 4 mg PO Q8HR PRN #30 tab 10/22/21 Rx Allergies Allergy/AdvReac Type Severity Reaction Status Date / Time ciprofloxacin [From Cipro] Allergy Rash/Hives Verified 02/09/22 21:47 cyclobenzaprine Allergy Swelling Verified 02/09/22 21:47 [From Flexeril] Iodinated Contrast Media Allergy Anaphylaxis Verified 02/09/22 21:47 latex Allergy Anaphylaxis Verified 02/09/22 21:47 levofloxacin [From Levaquin] Allergy Rash/Hives Verified 02/09/22 21:47 metronidazole [From Flagyl] Allergy Swelling Verified 02/09/22 21:47 sulfamethoxazole Allergy Rash/Hives Verified 02/09/22 21:47 [From Bactrim] trimethoprim [From Bactrim] Allergy Rash/Hives Verified 02/09/22 21:47 haloperidol [From Haldol] AdvReac Hallucinati Verified 02/09/22 21:47 ons Physical Exam Vitals: Vital Signs Temp Pulse Resp BP Pulse Ox 02/10/22 03:53 90 16 142/88 97 02/10/22 03:38 80 02/10/22 03:28 78 02/10/22 02:45 85 16 141/101 95 02/09/22 21:42 98.4 F 115 H 26 H 159/102 96 Intake and Output 02/09/22 02/09/22 02/10/22 14:59 22:59 06:59 Other: Weight 104.326 kg Results CBC & Chem 7: 02/09/22 21:55 02/09/22 21:55 Labs: Abnormal Lab Results - Last 24 Hours (Table) 02/09/22 02/09/22 02/10/22 Range/Units 21:55 21:55 01:44 APTT 19.1 L (22.0-30.0) sec D-Dimer 0.77 H (<0.60) mg/L FEU Sodium 136 L (137-145) mmol/L Carbon Dioxide 20 L (22-30) mmol/L
[2022-02-10] MEDS: ATORVASTATIN 80 MG TAB PO SCH ×2 (05:26→22:08)
[2022-02-10] MEDS: HEPARIN SODIUM,PORCINE/PF 5,000 UNIT/0.5 ML SYRINGE SQ SCH ×3 (07:51→22:10)
--- NOTE | 2022-02-10 09:16 | US ---
EXAMINATION TYPE: US venous doppler duplex LE RT DATE OF EXAM: 02/10/2022 8:44 AM COMPARISON: NONE CLINICAL HISTORY: DVT. SOB SIDE PERFORMED: Right TECHNIQUE: The lower extremity deep venous system is examined utilizing real time linear array sonog cami with graded compression, doppler sonography and color-flow sonography. VESSELS IMAGED: Common Femoral Vein Deep Femoral Vein Greater Saphenous Vein * Femoral Vein Popliteal Vein Small Saphenous Vein * Proximal Calf Veins (* superficial vessels) Grayscale, color doppler, spectral doppler imaging performed of the deep veins of the lower extremiti es. There is normal flow, compressibility, vascular waveforms. Right Leg: Negative for DVT IMPRESSION: No evidence for deep vein thrombus of the right lower extremity.
--- NOTE | 2022-02-10 11:28 | P.CRDCN ---
History of Present Illness History of present illness: HISTORY OF PRESENTING ILLNESS Patient is pleasant 41-year-old female with history of spinal cord injury, multiple autoimmune disorders per patient, family history of CAD with multiple family members dying in their 50s who presents with increased lower extremity edema reported 30 pound weight gain, and chest pain as well as shortness breath with minimal exertion. She states that she had been doing fairly well up until last few weeks. She has been getting increased dyspnea with exertion. She had an episode of chest discomfort and given multiple symptoms decided go the ER. She states she was tried on hydrochlorothiazide a few weeks ago for increased lower extremity edema which is normally worse at the end of the day and improved in the morning. Appears more consistent with venous insufficiency. She states the hydrochlorothiazide did not help. Workup shows hemoglobin 14.2, white blood cell count 9.4, d-dimer 0.7, creatinine 0.9, troponin normal 2, proBNP 69. EKG showed normal sinus rhythm without significant ST or T-wave abnormalities. CT chest showed no pulmonary embolism. REVIEW OF SYSTEMS At the time of my exam: CONSTITUTIONAL: Denies fever or chills. CARDIOVASCULAR: +chest pain, +shortness of breath, no orthopnea, PND or palpitations. RESPIRATORY: Denies cough. GASTROINTESTINAL: Denies abdominal pain, diarrhea, constipation, nausea or vomiting. MUSCULOSKELETAL: Denies myalgias. NEUROLOGIC: Denies numbness, tingling or weakness. ENDOCRINE: Denies fatigue, weight change, polydipsia or polyurina. GENITOURINARY: Denies burning, hematuria or urgency with micturation. HEMATOLOGIC: Denies history of anemia or bleeding. PHYSICAL EXAMINATION Vital signs reviewed. CONSTITUTIONAL: No apparent distress. HEENT: Head is normocephalic. Pupils are equal, round. Sclerae anicteric. Mucous membranes of the mouth are moist. No JVD. No carotid bruit. CHEST EXAMINATION: Lungs are clear to auscultation. No chest wall tenderness is noted on palpation or with deep breathing. HEART EXAMINATION: Regular rate and rhythm. S1, S2 heard. No murmurs, gallops or rub. ABDOMEN: Soft, nontender. Positive bowel sounds. EXTREMITIES: 2+ peripheral pulses, no lower extremity edema and no calf tenderness. NEUROLOGIC EXAMINATION: Patient is awake, alert and oriented x3. ASSESSMENT 1. Chest pain and shortness of breath worse with exertion. Rule out angina 2. Family history of CAD 3. Lower extremity edema not improved with prior diuretics. Suspect related to venous insufficiency. Normal BMP and do not suspect acute coronary syndrome. PLAN Patient with some symptoms which may be consistent with angina. We will add metoprolol and continue with aspirin. Check 2-D echo. If echo is unrevealing and patient stable without any further chest pain episodes with walking the halls discussed option for discharge home with close outpatient following and stress test next week. If patient still having chest pain and dyspnea would recommend continued inpatient monitoring with likely stress testing Saturday. Past Medical History Past Medical History: Asthma, Blood Disorder, Cancer, Eye Disorder, Fibromyalgia, GERD/Reflux, Hypertension, Rheumatoid Arthritis (RA), Sleep Apnea/CPAP/BIPAP, Thyroid Disorder Additional Past Medical History / Comment(s): Spinal cord injury, brain injury with resultant chronic neck, bilateral shoulder and back pain, coordination and memory problems. IgA Deficiency. States "can only have IgA deficient blood only or I will have an Anaphylactic Reaction." Chronic Interstitial Cystitis, Gastroparesis. CPAP use. Skin cancer 2 yrs ago on back. Bilateral Macular Degeneration. History of Any Multi-Drug Resistant Organisms: MRSA Date of last positivie culture/infection: 2015 MDRO Source:: Right Inner Thigh Past Surgical History: Hysterectomy Additional Past Surgical History / Comment(s): Spinal fusion, bilateral bunionectomy, skin cancer removed from back. Past Anesthesia/Blood Transfusion Reactions: No Reported Reaction, Motion Sickness Additional Past Anesthesia/Blood Transfusion Reaction / Comment(s): No history of blood transfusion. IgA Deficiency, can only have IgA Deficient blood or will have Anaphylactic Reaction. Past Psychological History: Anxiety, PTSD Smoking Status: Never smoker Past Alcohol Use History: None Reported Past Drug Use History: Marijuana - Past Family History Father Family Medical History: Cancer, Seizure Disorder Additional Family Medical History / Comment(s): Prostate Cancer. Mother Family Medical History: Cancer Additional Family Medical History / Comment(s): Skin cancer. Medications and Allergies Home Medications Medication Instructions Recorded Confirmed Type DULoxetine HCL [Cymbalta] 60 mg PO DAILY 10/19/20 10/21/21 History EPINEPHrine (Auto Inject) [Epipen] 0.3 mg IM ONCE PRN 10/19/20 10/21/21 History Gabapentin [Neurontin] 300 mg PO DAILY 10/19/20 10/21/21 History Levothyroxine Sodium [Synthroid] 75 mcg PO DAILY 10/19/20 10/21/21 History Omeprazole 20 mg PO DAILY 10/19/20 10/21/21 History hydrOXYzine pamoate [Vistaril] 25 mg PO HS 10/19/20 10/21/21 History oxyCODONE-APAP 5-325MG [Percocet 1 tab PO BID PRN 10/19/20 10/21/21 History 5-325 mg] tiZANidine HCL 4 mg PO TID PRN 10/19/20 10/21/21 History diazePAM [Valium] 5 mg PO HS 07/05/21 10/21/21 History ALPRAZolam [Xanax] 0.5 mg PO DIRECTED PRN 10/20/21 10/21/21 History DULoxetine HCL [Cymbalta] 30 mg PO DAILY 10/20/21 10/21/21 History Gabapentin 900 mg PO HS 10/20/21 10/21/21 History Rimegepant Sulfate [Nurtec Odt] 75 mg PO DAILY PRN 10/20/21 10/21/21 History diazePAM [Valium] 5 mg PO BID PRN 10/20/21 10/21/21 History Ondansetron [Zofran] 4 mg PO Q8HR PRN #30 tab 10/22/21 Rx Allergies Allergy/AdvReac Type Severity Reaction Status Date / Time ciprofloxacin [From Cipro] Allergy Rash/Hives Verified 02/09/22 21:47 cyclobenzaprine Allergy Swelling Verified 02/09/22 21:47 [From Flexeril] Iodinated Contrast Media Allergy Anaphylaxis Verified 02/09/22 21:47 latex Allergy Anaphylaxis Verified 02/09/22 21:47 levofloxacin [From Levaquin] Allergy Rash/Hives Verified 02/09/22 21:47 metronidazole [From Flagyl] Allergy Swelling Verified 02/09/22 21:47 sulfamethoxazole Allergy Rash/Hives Verified 02/09/22 21:47 [From Bactrim] trimethoprim [From Bactrim] Allergy Rash/Hives Verified 02/09/22 21:47 haloperidol [From Haldol] AdvReac Hallucinati Verified 02/09/22 21:47 ons Physical Exam Vitals: Vital Signs Temp Pulse Pulse Resp BP BP Pulse Ox 02/10/22 08:00 66 18 02/10/22 07:00 98.1 F 66 18 112/61 99 02/10/22 05:12 98.2 F 87 16 138/83 98 02/10/22 03:53 90 16 142/88 97 02/10/22 03:38 80 02/10/22 03:28 78 02/10/22 02:45 85 16 141/101 95 02/09/22 21:42 98.4 F 115 H 26 H 159/102 96 Intake and Output 02/09/22 02/10/22 02/10/22 22:59 06:59 14:59 Other: Voiding Method Toilet Weight 104.326 kg 104.326 kg Results 02/09/22 21:55 02/09/22 21:55 Cardiac Enzymes 02/09/22 02/09/22 02/10/22 Range/Units 21:55 21:55 05:07 AST 19 (14-36) U/L Troponin I <0.012 <0.012 (0.000-0.034) ng/mL Coagulation 02/09/22 Range/Units 21:55 PT 9.8 (9.0-12.0) sec APTT 19.1 L (22.0-30.0) sec CBC 02/09/22 Range/Units 21:55 WBC 9.4 (3.8-10.6) k/uL RBC 4.88 (3.80-5.40) m/uL Hgb 14.2 (11.4-16.0) gm/dL Hct 43.8 (34.0-46.0) % Plt Count 280 (150-450) k/uL Comprehensive Metabolic Panel 02/09/22 Range/Units 21:55 Sodium 136 L (137-145) mmol/L Potassium 4.1 (3.5-5.1) mmol/L Chloride 104 (98-107) mmol/L Carbon Dioxide 20 L (22-30) mmol/L BUN 12 (7-17) mg/dL Creatinine 0.90 (0.52-1.04) mg/dL Glucose 98 (74-99) mg/dL Calcium 9.4 (8.4-10.2) mg/dL AST 19 (14-36) U/L ALT 15 (4-34) U/L Alkaline Phosphatase 90 (38-126) U/L Total Protein 6.8 (6.3-8.2) g/dL Albumin 4.1 (3.5-5.0) g/dL Current Medications Generic Name Dose Route Start Last Admin Trade Name Freq PRN Reason Stop Dose Admin Aspirin 325 mg 02/11/22 09:00 Aspirin 325 Mg Tab PO DAILY [facility] Atorvastatin Calcium 80 mg 02/10/22 04:59 02/10/22 05:26 Atorvastatin 80 Mg Tab PO 80 mg HS RANDOLPH Administration Heparin Sodium (Porcine) 5,000 unit 02/10/22 08:00 02/10/22 07:51 Heparin Sodium,Porcine/Pf 5,000 Unit/0.5 Ml Syringe SQ Not Given Q8HR [facility] Metoprolol Succinate 12.5 mg 02/10/22 11:30 Metoprolol Succinate (Er) 25 Mg Tab.Er.24h PO DAILY [facility] Morphine Sulfate 4 mg 02/10/22 03:25 Morphine Sulfate 4 Mg/Ml Syringe IV Q4HR PRN Chest Pain Nitroglycerin 0.4 mg 02/10/22 03:25 Nitroglycerin Sl Tabs 0.4 Mg Tab SUBLINGUAL Q5M PRN Chest Pain Intake and Output 02/09/22 02/10/22 02/10/22 22:59 06:59 14:59 Other: Voiding Method Toilet Weight 104.326 kg 104.326 kg 02/09/22 21:55 02/09/22 21:55
[2022-02-10] MEDS: METOPROLOL SUCCINATE (ER) 25 MG TAB.ER.24H PO SCH (11:52)
--- NOTE | 2022-02-10 12:40 | CA ---
Transthoracic Echo Report Name: Shane Pickard Age: 41 Gender: F : 1980 Exam Date: 02/10/2022 08:05 Exam Location: [facility] Ht (in): 64 Wt (lb): 230 Ordering Physician: George Gould DO Attending/Referring Phys: [id number], Bryanna General Farmer Alexandra Rincon RDCS Procedure CPT: Indications: PE Cardiac Hx: Htn Technical Quality: Good Contrast 1: Total Dose (mL): Contrast 2: Total Dose (mL): MEASUREMENTS (Male / Female) Normal Values 2D ECHO LV Diastolic Diameter PLAX 3.9 cm 4.2 - 5.9 / 3.9 - 5.3 cm LV Systolic Diameter PLAX 2.7 cm IVS Diastolic Thickness 1.0 cm 0.6 - 1.0 / 0.6 - 0.9 cm LVPW Diastolic Thickness 1.1 cm 0.6 - 1.0 / 0.6 - 0.9 cm LV Relative Wall Thickness 0.5 RV Internal Dim ED PLAX 3.1 cm LV Diastolic Volume MOD BP 60.3 cm??? 67 - 155 / 56 - 104 cm??? LV Systolic Volume MOD BP 18.3 cm??? 22 - 58 / 19 - 49 cm??? LV Ejection Fraction MOD BP 69.6 % >= 55 % LV Diastolic Volume MOD 4C 78.5 cm??? LV Systolic Volume MOD 4C 27.4 cm??? LV Ejection Fraction MOD 4C 65.1 % LV Diastolic Length 4C 7.7 cm LV Systolic Length 4C 5.7 cm LV Diastolic Volume MOD 2C 45.1 cm??? LV Systolic Volume MOD 2C 12.3 cm??? LV Ejection Fraction MOD 2C 72.7 % LV Diastolic Length 2C 7.4 cm LV Systolic Length 2C 5.7 cm LA Volume 20.2 cm??? 18 - 58 / 22 - 52 cm??? M-MODE Aortic Root Diameter MM 3.2 cm LA Systolic Diameter MM 3.6 cm LA Ao Ratio MM 1.1 MV E Point Septal Separation 0.8 cm AV Cusp Separation MM 2.3 cm DOPPLER AV Peak Velocity 116.3 cm/s AV Peak Gradient 5.4 mmHg MV Area PHT 4.2 cm??? Mitral E Point Velocity 67.7 cm/s Mitral A Point Velocity 69.1 cm/s Mitral E to A Ratio 1.0 MV Deceleration Time 182.6 ms MV E' Velocity 9.4 cm/s Mitral E to MV E' Ratio 7.2 TR Peak Velocity 101.6 cm/s TR Peak Gradient 4.1 mmHg Right Ventricular Systolic Press 9.1 mmHg FINDINGS Left Ventricle Mildly increased posterior wall thickness. Left ventricular ejection fraction is estimated at 55-60 %. Left ventricular cavity size normal. Right Ventricle The right ventricle is normal in size and function. Right Atrium The right atrium is normal in size. Left Atrium The left atrium is normal in size. Mitral Valve Structurally normal mitral valve without significant stenosis or prolapse. There is trace mitral regurgitation. Aortic Valve Structurally normal aortic valve without significant sclerosis or stenosis. There is no aortic regurgitation. Tricuspid Valve Structurally normal tricuspid valve without significant stenosis. Pulmonary artery systolic pressure is normal. Trace tricuspid regurgitation. Pulmonic Valve Structurally normal pulmonic valve without significant stenosis. There is no pulmonic regurgitation. Pericardium Normal pericardium without effusion. Aorta Normal aortic root dimension. CONCLUSIONS Borderline LVH Normal left ventricular EF 55-60% Trace mitral regurgitation Trace tricuspid regurgitation No pericardial effusion Previewed by: Dr. Evan Monaco DO (Electronically Signed) Final Date: 10 February 2022 12:40
[2022-02-10] MEDS ORDERED: ONDANSETRON 4 MG TAB PO PRN (14:32)
[2022-02-10] MEDS ORDERED: PROPRANOLOL 20 MG TAB PO SCH (14:45)
[2022-02-10] MEDS: GABAPENTIN 300 MG CAP PO SCH ×2 (14:53→22:08)
[2022-02-10] MEDS: LEVOTHYROXINE 75 MCG TAB PO SCH (14:53)
[2022-02-10] MEDS: DULoxetine HCL 60 MG CAPSULE.DR PO SCH (14:53)
[2022-02-10] MEDS: PANTOPRAZOLE 40 MG TABLET PO SCH (14:54)
--- NOTE | 2022-02-10 17:04 | P.PN ---
Subjective Progress Note Date: 02/10/22 Hospital course: Patient is a very pleasant 41-year-old female with past medical history of anxiety, gastroparesis, chronic fatigue syndrome, fibromyalgia, hypertension, and hypothyroidism. She presented to the emergency department with a chief complaint of exertional shortness of breath and chest discomfort accompanied by lower extremity edema. Patient reports this has progressively worsened over the past few and she is no longer able to perform typical activities of daily swati ng. Patient reports this is also exacerbated her anxiety and she has been also having increased anxiety at rest. Patient reports taking CBD daily as well as as needed Valium 5 mg every 6 hours for treatment of her anxiety, however came to the emergency department for evaluation of her chest pain, shortness of breath, and lower extremity edema. Patient underwent full evaluation in our emergency department. EKG was unremarkable revealing normal sinus rhythm at 74 bpm with no noted T-wave or ST abnormalities showing no signs of acute ischemia. CBC, coags, and CMP were unremarkable. Troponin negative at less than 0.012. ProBNP negative at 69. TSH normal findings at 1.110. D-dimer was slightly elevated at 0.77.CTA negative for pulmonary emboli. Chest x-ray negative for acute cardiopulmonary process. Right lower extremity Doppler negative for DVT. X-ray of right foot revealing soft tissue swelling negative for fracture. Patient was admitted under our services with consultation to cardiology. Troponins trended overnight and all negative at less than 0.0123 draws. Echocardiogram revealing normal EF 55-60% with borderline left ventricular hypertrophy and trace mitral and tricuspid regurgitation.. Physical exam: Patient seen and fully evaluated at bedside. Patient appeared to be resting comfortably and easily awoken via verbal stimuli. Patient reports that she has not slept in 2 days and having increased anxiety. Nighttime Valium and hydroxyzine ordered per patient's request, we will continue to hold Valium every 6 hours in which patient reports taking for her anxiety. This was discussed with patient as well as reasoning behind holding this medication at this time. Patient encouraged to discontinue use of daily benzodiazepines, CBD supplements and marijuana use. RN reports patient ambulated up and down the valerio and continued to report having shortness of breath and chest pain with exertion. Cardiology recommending patient stay until Saturday to have stress test completed. Patient updated on plan of care and in agreement at this time. Vital signs reviewed and stable. General: Nontoxic, no distress and appears stated age. Derm: Skin warm and dry, normal coloration for ethnicity. Head: Atraumatic, normocephalic and symmetric. Eyes: EOMs intact, no lid lag, and anicteric sclera Mouth: no lip lesions, mucus membranes moist Cardiovascular: regular rate and rhythm with normal S1S2, no murmur, positive posterior tibial pulses bilaterally, and cap refill < 2 seconds. Lungs: Respirations even, regular, and unlabored on room air. Lungs CTA bila terally, no rhonchi, no rales, no wheezing, and no accessory muscle usage. Abdominal: soft, nontender to palpation, no guarding, no appreciable organomegaly Ext: ROM intact. No gross muscle atrophy, no contractures. No lower extremity edema noted upon assessment. Patient has small bump/area of swelling on the dorsal surface of right foot, no bruising or discoloration noted. Neuro: Speech clear, face symmetrical and CN II-XII grossly intact with no noted focal neuro deficits Psych: Alert and oriented to person, place, time, and situation. Appropriate and pleasant affect. Assessment and Plan of Care: Exertional Chest pain and Shortness of Breath, rule out acute coronary event vs physical deconditioning -Cardiology consult, appreciate further recommendations -Telemetry monitoring -Troponins negative 3 draws. EKG unremarkable revealing normal sinus rhythm at 74 bpm with no noted T-wave or ST abnormalities showing no signs of acute ischemia -Cardiac diet, NPO at midnight -Aspirin, atorvastatin, and metoprolol -Lipid profile with a.m. labs. -Echocardiogram revealing normal EF 55-60% with borderline left ventricular hypertrophy and trace mitral and tricuspid regurgitation.. Hypertension -Monitor vital signs and continue daily medication regimen with hydrochlorothiazide. Propranolol was discontinued and patient started on metoprolol by cardiology. Hypothyroidism -TSH normal findings 1.110. Patient to continue daily levothyroxine. Hyperlipidemia -Continue atorvastatin. Anxiety Chronic fatigue syndrome Fibromyalgia -Patient instructed she may continue hydroxyzine and Valium nightly however Valium every 6 hours being held at this time and highly recommend being disco ntinued as persistent use of benzodiazepines can lead to fatigue which in turn may result in physical deconditioning. -Patient to continue Cymbalta and Vistaril. -Also recommend discontinuation of daily CBD supplements and marijuana use. Morbid obesity with BMI of 39.5 kg/m -Recommend outpatient weight management program. CODE STATUS: Full Code DVT prophylaxis: Heparin Discussed with: Patient and RN Anticipated discharge date: 02/12/22 as cardiology recommending patient stay for stress test Anticipated discharge place: Home A total of 35 minutes was spent on the care of this complex patient more than 50% of the time was spent in counseling and care coordination. I reviewed the documentation as provided by the MARTY above, who is the original author of this note. I agree with the documented assessment and plan, with the following changes: none Objective - Vital Signs Vital signs: Vital Signs Temp 98.2 F 02/10/22 15:02 Pulse 89 02/10/22 15:02 Resp 18 02/10/22 15:02 BP 138/87 02/10/22 15:02 Pulse Ox 97 02/10/22 15:02 FiO2 Intake & Output 02/09/22 02/10/22 02/10/22 18:59 06:59 18:59 Intake Total 118 Balance 118 Weight 104.326 kg Intake: Oral 118 Other: Voiding Method Toilet # Voids 2 - Labs CBC & Chem 7: 02/09/22 21:55 02/09/22 21:55 Labs: Abnormal Lab Results - Last 24 Hours (Table) 02/09/22 02/09/22 02/10/22 Range/Units 21:55 21:55 01:44 APTT 19.1 L (22.0-30.0) sec D-Dimer 0.77 H (<0.60) mg/L FEU Sodium 136 L (137-145) mmol/L Carbon Dioxide 20 L (22-30) mmol/L
[2022-02-10 17:29] LABS: Chol/HDL Ratio 4.81 Ratio; LDL Cholesterol,Calculated 182.6 mg/dL (0.0-131.0); VLDL Calculation 13.12 mg/dL (5.00-40.00)
[2022-02-10] MEDS: DULoxetine HCL 30 MG CAPSULE.DR PO SCH (17:38)
[2022-02-10] MEDS: tiZANidine 4 MG TAB PO PRN (19:33)
[2022-02-10] MEDS: MIRTAZAPINE 15 MG TAB PO SCH (22:07)
[2022-02-10] MEDS: hydrOXYzine pamoate 25 MG CAP PO SCH (22:07)
[2022-02-10] MEDS: diazePAM 5 MG TAB PO SCH (22:08)
[2022-02-11] MEDS ORDERED: MORPHINE SULFATE 2 MG/ML SYRINGE IVP STA (06:24)
[2022-02-11] MEDS: DULoxetine HCL 30 MG CAPSULE.DR PO SCH (07:43)
[2022-02-11] MEDS: ASPIRIN 325 MG TAB PO SCH (07:43)
[2022-02-11] MEDS: METOPROLOL SUCCINATE (ER) 25 MG TAB.ER.24H PO SCH (07:43)
[2022-02-11] MEDS: DULoxetine HCL 60 MG CAPSULE.DR PO SCH (07:44)
[2022-02-11] MEDS: PANTOPRAZOLE 40 MG TABLET PO SCH (07:44)
[2022-02-11] MEDS: HEPARIN SODIUM,PORCINE/PF 5,000 UNIT/0.5 ML SYRINGE SQ SCH ×3 (07:45→20:20)
[2022-02-11] MEDS: GABAPENTIN 300 MG CAP PO SCH ×2 (07:49→20:18)
[2022-02-11] MEDS: hydroCHLOROthiazide 25 MG TAB PO SCH (08:01)
[2022-02-11 09:16] LABS: Chol/HDL Ratio 5.42 Ratio; LDL Cholesterol,Calculated 150.8 mg/dL (0.0-131.0)
--- NOTE | 2022-02-11 11:07 | P.PN ---
Subjective Progress Note Date: 02/11/22 Hospital course: Patient is a very pleasant 41-year-old female with past medical history of anxiety, gastroparesis, chronic fatigue syndrome, fibromyalgia, hypertension, and hypothyroidism. She presented to the emergency department with a chief complaint of exertional shortness of breath and chest discomfort accompanied by lower extremity edema. Patient reports this has progressively worsened over the past few and she is no longer able to perform typical activities of daily swati ng. Patient reports this is also exacerbated her anxiety and she has been also having increased anxiety at rest. Patient reports taking CBD daily as well as as needed Valium 5 mg every 6 hours for treatment of her anxiety, however came to the emergency department for evaluation of her chest pain, shortness of breath, and lower extremity edema. Patient underwent full evaluation in our emergency department. EKG was unremarkable revealing normal sinus rhythm at 74 bpm with no noted T-wave or ST abnormalities showing no signs of acute ischemia. CBC, coags, and CMP were unremarkable. Troponin negative at less than 0.012. ProBNP negative at 69. TSH normal findings at 1.110. D-dimer was slightly elevated at 0.77.CTA negative for pulmonary emboli. Chest x-ray negative for acute cardiopulmonary process. Right lower extremity Doppler negative for DVT. X-ray of right foot revealing soft tissue swelling negative for fracture. Patient was admitted under our services with consultation to cardiology. Troponins trended overnight and all negative at less than 0.0123 draws. Echocardiogram revealing normal EF 55-60% with borderline left ventricular hypertrophy and trace mitral and tricuspid regurgitation.. Lipid profile revealing elevated triglycerides of 200, cholesterol 234, and LDL of 150.8. Physical exam: Patient seen and fully evaluated at bedside. Patient ambulating in room showing no signs of acute distress at this time. She reports chest pain and shortness of breath fully subsided at rest but continues with exertion. Plan is for patient to undergo Cardiolite stress test tomorrow morning with Dr. Monaco. Lipid profile revealing elevated triglycerides of 200, cholesterol 234, and LDL of 150.8. Patient remains on atorvastatin 80 mg nightly at this time. Vital signs reviewed and stable. General: Nontoxic, no distress and appears stated age. Derm: Skin warm and dry, normal coloration for ethnicity. Head: Atraumatic, normocephalic and symmetric. Eyes: EOMs intact, no lid lag, and anicteric sclera Mouth: no lip lesions, mucus membranes moist Cardiovascular: regular rate and rhythm with normal S1S2, no murmur, positive posterior tibial pulses bilaterally, and cap refill < 2 seconds. Lungs: Respirations even, regular, and unlabored on room air. Lungs CTA bilaterally, no rhonchi, no rales, no wheezing, and no accessory muscle usage. Abdominal: soft, nontender to palpation, no guarding, no appreciable organomegaly Ext: ROM intact. No gross muscle atrophy, no contractures. No lower extremity edema noted upon assessment. Patient has small bump/area of swelling on the dorsal surface of right foot, no bruising or discoloration noted. Neuro: Speech clear, face symmetrical and CN II-XII grossly intact with no noted focal neuro deficits Psych: Alert and oriented to person, place, time, and situation. Appropriate and pleasant affect. Assessment and Plan of Care: Exertional Chest pain and Shortness of Breath, rule out acute coronary event vs physical deconditioning -Cardiology following, plans for patient to undergo Cardiolite stress test tomorrow morning. -Telemetry monitoring -Troponins negative 3 draws. EKG unremarkable revealing normal sinus rhythm at 74 bpm with no noted T-wave or ST abnormalities showing no signs of acute i schemia -Cardiac diet, NPO at midnight -Aspirin, atorvastatin, and metoprolol -Lipid profile with a.m. labs. -Echocardiogram revealing normal EF 55-60% with borderline left ventricular hypertrophy and trace mitral and tricuspid regurgitation.. Hypertension -Monitor vital signs and continue daily medication regimen with hydrochlorothiazide. Propranolol was discontinued and patient started on met oprolol by cardiology. Hypothyroidism -TSH normal findings 1.110. Patient to continue daily levothyroxine. Hyperlipidemia -Continue atorvastatin. Anxiety Chronic fatigue syndrome Fibromyalgia -Patient instructed she may continue hydroxyzine and Valium nightly however Valium every 6 hours being held at this time and highly recommend being discontinued as persistent use of benzodiazepines can lead to fatigue which in turn may result in physical deconditioning. -Patient to continue Cymbalta and Vistaril. -Also recommend discontinuation of daily CBD supplements and marijuana use. Morbid obesity with BMI of 39.5 kg/m -Recommend outpatient weight management program. CODE STATUS: Full Code DVT prophylaxis: Heparin Discussed with: Patient and RN Anticipated discharge date: 02/12/22 as cardiology recommending patient stay for stress test Anticipated discharge place: Home A total of 35 minutes was spent on the care of this complex patient more than 50% of the time was spent in counseling and care coordination. Objective - Vital Signs Vital signs: Vital Signs Temp 98.0 F 02/11/22 07:00 Pulse 79 02/11/22 08:00 Resp 18 02/11/22 08:00 BP 136/82 02/11/22 07:00 Pulse Ox 98 02/11/22 07:00 FiO2 Intake & Output 02/10/22 02/11/22 02/11/22 18:59 06:59 18:59 Intake Total 238 240 Balance 238 240 Intake: Oral 238 240 Other: Voiding Method Toilet Toilet Toilet # Voids 2 2 - Labs CBC & Chem 7: 02/09/22 21:55 02/09/22 21:55 Labs: Abnormal Lab Results - Last 24 Hours (Table) 02/09/22 02/10/22 Range/Units 21:55 10:49 Triglycerides 200.00 H (0.00-149.00) mg/dL Cholesterol 234.00 H 247.00 H (0.00-200.00) mg/dL LDL Cholesterol, Calc 150.8 H 182.6 H (0.0-131.0) mg/dL
--- NOTE | 2022-02-11 12:18 | P.PN ---
Subjective HISTORY OF PRESENTING ILLNESS Patient is pleasant 41-year-old female with history of spinal cord injury, multiple autoimmune disorders per patient, family history of CAD with multiple family members dying in their 50s who presents with increased lower extremity edema reported 30 pound weight gain, and chest pain as well as shortness breath with minimal exertion. She states that she had been doing fairly well up until last few weeks. She has been getting increased dyspnea with exertion. She had an episode of chest discomfort and given multiple symptoms decided go the ER. She states she was tried on hydrochlorothiazide a few weeks ago for increased lower extremity edema which is normally worse at the end of the day and improved in the morning. Appears more consistent with venous insufficiency. She states the hydrochlorothiazide did not help. Workup shows hemoglobin 14.2, white blood cell count 9.4, d-dimer 0.7, creatinine 0.9, troponin normal 2, proBNP 69. EKG showed normal sinus rhythm without significant ST or T-wave abnormalities. CT chest showed no pulmonary embolism. 02/11 Patient seen and examined. Patient still having chest pain and shortness breath with minimal exertion walking from the halls. Blood work shows elevated LDL level. PHYSICAL EXAMINATION Vital signs reviewed. CONSTITUTIONAL: No apparent distress. HEENT: Head is normocephalic. Pupils are equal, round. Sclerae anicteric. Mucous membranes of the mouth are moist. No JVD. No carotid bruit. CHEST EXAMINATION: Lungs are clear to auscultation. No chest wall tenderness is noted on palpation or with deep breathing. HEART EXAMINATION: Regular rate and rhythm. S1, S2 heard. No murmurs, gallops or rub. ABDOMEN: Soft, nontender. Positive bowel sounds. EXTREMITIES: 2+ peripheral pulses, no lower extremity edema and no calf tenderness. NEUROLOGIC EXAMINATION: Patient is awake, alert and oriented x3. ASSESSMENT 1. Chest pain and shortness of breath worse with exertion. Rule out angina 2. Family history of CAD 3. Lower extremity edema not improved with prior diuretics. Suspect related to venous insufficiency. Normal BMP and do not suspect acute coronary syndrome. PLAN Symptoms somewhat concerning for angina. Worse with exertion. Discussed possible stress testing versus heart catheterization and patient would like to start with a stress test. Check Cardiolite stress test and further recommendations to follow. Continue with current medications. Continue Lipitor with severely elevated LDL. Objective - Vital Signs Vital signs: Vital Signs Temp 98.0 F 02/11/22 07:00 Pulse 79 02/11/22 08:00 Resp 18 02/11/22 08:00 BP 136/82 02/11/22 07:00 Pulse Ox 98 02/11/22 07:00 FiO2 Intake & Output 02/10/22 02/11/22 02/11/22 18:59 06:59 18:59 Intake Total 238 240 Balance 238 240 Intake: Oral 238 240 Other: Voiding Method Toilet Toilet Toilet # Voids 2 2 - Labs CBC & Chem 7: 02/09/22 21:55 02/09/22 21:55 Labs: Abnormal Lab Results - Last 24 Hours (Table) 02/09/22 02/10/22 Range/Units 21:55 10:49 Triglycerides 200.00 H (0.00-149.00) mg/dL Cholesterol 234.00 H 247.00 H (0.00-200.00) mg/dL LDL Cholesterol, Calc 150.8 H 182.6 H (0.0-131.0) mg/dL
[2022-02-11] MEDS: LEVOTHYROXINE 75 MCG TAB PO SCH (14:53)
[2022-02-11] MEDS: tiZANidine 4 MG TAB PO PRN (15:00)
[2022-02-11] MEDS: hydrOXYzine pamoate 25 MG CAP PO SCH (20:16)
[2022-02-11] MEDS: diazePAM 5 MG TAB PO SCH (20:18)
[2022-02-11] MEDS: ATORVASTATIN 80 MG TAB PO SCH (20:18)
[2022-02-11] MEDS: MIRTAZAPINE 15 MG TAB PO SCH (20:18)
[2022-02-12 08:34] VITALS: RESP 18
[2022-02-12] MEDS: HEPARIN SODIUM,PORCINE/PF 5,000 UNIT/0.5 ML SYRINGE SQ SCH (08:56)
[2022-02-12] MEDS: METOPROLOL SUCCINATE (ER) 25 MG TAB.ER.24H PO SCH (08:56)
[2022-02-12] MEDS: DULoxetine HCL 60 MG CAPSULE.DR PO SCH (09:03)
[2022-02-12] MEDS: DULoxetine HCL 30 MG CAPSULE.DR PO SCH (09:03)
[2022-02-12] MEDS: hydroCHLOROthiazide 25 MG TAB PO SCH (09:03)
[2022-02-12] MEDS: PANTOPRAZOLE 40 MG TABLET PO SCH (09:04)
[2022-02-12] MEDS: GABAPENTIN 300 MG CAP PO SCH (09:04)
--- NOTE | 2022-02-12 10:04 | P.PN ---
Subjective Progress Note Date: 02/12/22 HISTORY OF PRESENT ILLNESS: Patient is pleasant 41-year-old female with history of spinal cord injury, multiple autoimmune disorders per patient, family history of CAD with multiple family members dying in their 50s who presents with increased lower extremity edema reported 30 pound weight gain, and chest pain as well as shortness breath with minimal exertion. She states that she had been doing fairly well up until last few weeks. She has been getting increased dyspnea with exertion. She had an episode of chest discomfort and given multiple symptoms decided go the ER. She states she was tried on hydrochlorothiazide a few weeks ago for increased lower extremity edema which is normally worse at the end of the day and improved in the morning. Appears more consistent with venous insufficiency. She states the hydrochlorothiazide did not help. Workup shows hemoglobin 14.2, white blood cell count 9.4, d-dimer 0.7, creatinine 0.9, troponin normal 2, proBNP 69. EKG showed normal sinus rhythm without significant ST or T-wave abnormalities. CT chest showed no pulmonary embolism. 02/11 Patient seen and examined. Patient still having chest pain and shortness breath with minimal exertion walking from the halls. Blood work shows elevated LDL level. 02/12/2022 Patient examined this morning at the bedside. Patient denies chest pain or pressure. Denies SOB. Vital signs are stable. Echocardiogram completed revealing ejection fraction 55-60%, trace MR, trace TR. PHYSICAL EXAM: VITAL SIGNS: Reviewed. GENERAL: Well-developed in no acute distress. NECK: Supple. No JVD or thyromegaly LUNGS: Respirations even and unlabored. Lungs essentially clear to auscultation bilaterally. HEART: Regular rate and rhythm. S1 and S2 heard. EXTREMITIES: Normal range of motion. No clubbing or cyanosis. Peripheral pulses intact. No lower extremity edema ASSESSMENT: 1. Chest pain and shortness of breath worse with exertion. Rule out angina 2. Family history of CAD 3. Lower extremity edema not improved with prior diuretics. Suspect related to venous insufficiency. Normal BMP and do not suspect acute coronary syndrome. PLAN: Continue current cardiac medications Patient to undergo Cardiolite stress test today to assess for ischemia If negative, the patient may be discharged home from a cardiac standpoint Nurse practitioner note has been reviewed by physician. Signing provider agrees with the documented findings, assessment, and plan of care. Objective - Vital Signs Vital signs: Vital Signs Temp 98.4 F 02/12/22 07:00 Pulse 65 02/12/22 07:00 Resp 18 02/12/22 07:00 BP 125/71 02/12/22 07:00 Pulse Ox 98 02/12/22 07:00 FiO2 Intake & Output 02/11/22 02/12/22 02/12/22 18:59 06:59 18:59 Intake Total 480 Balance 480 Intake: Oral 480 Other: Voiding Method Toilet # Voids 3 1 - Labs CBC & Chem 7: 02/09/22 21:55 02/09/22 21:55
[2022-02-12] MEDS: ASPIRIN 325 MG TAB PO SCH (12:14)
--- NOTE | 2022-02-12 12:42 | NM ---
EXAMINATION TYPE: NM stress cardiolite complete DATE OF EXAM: 02/12/2022 COMPARISON: NONE HISTORY: TECHNIQUE: After the intravenous administration of 10.5 mCi Tc 99m Sestamibi - Rest images obtained 45 minutes post injection. The patient exercised using a MARYCRUZ protocol and 1 minute prior to peak exercise was injected with 24.4 mCi Tc 99m Sestamibi - Stress images obtained 20 minutes post injecti on. FINDINGS: Targeted heart rate was achieved during performance of the study. Review of stress and rest SPECT anila ges demonstrates no distinct perfusion abnormality. Gated analysis shows normal wall motion with an estimated left ventricular ejection fraction of 56 %. IMPRESSION: No scintigraphic evidence for reversible ischemia
[2022-02-12] MEDS: LEVOTHYROXINE 75 MCG TAB PO SCH (14:39)
--- NOTE | 2022-02-12 14:57 | P.DS ---
Providers Date of admission: 02/10/22 03:25 Expected date of discharge: 02/12/22 Attending physician: Mariya Laughlin MD Consults: 02/10/22 03:25 Consult Physician Urgent Consulting Provider: Bear Hernadnez Consult Reason/Comments: cp,sob Do you want consulting provider notified?: Yes Primary care physician: Bernardo [facility] Course: Discharge Diagnosis: Exertional Chest pain and Shortness of Breath, acute coronary event was ruled out exertional chest pain and shortness of breath likely secondary to physical deconditioning. Recommend patient follow heart healthy and carb consistent diet, slowly increase activity and follow up outpatient with PCP in 1-2 days and cardiology in 1 week. Hypertension. Monitor vital signs and continue daily medication regimen with hydrochlorothiazide. Propranolol was discontinued and patient started on metoprolol 12.5 mg daily. Hypothyroidism. TSH normal findings 1.110. Patient to continue daily levothyroxine. Hyperlipidemia. Patient started on atorvastatin 40 mg daily. Anxiety, Continue Cymbalta and Vistaril. It was recommended that patient stop taking Valium every 6 hours for treatment of her anxiety as this can also lead to fatigue and feeling of generalized weakness. Patient also recommended to discontinue use of daily CBD supplements and marijuana use. Chronic fatigue syndrome Fibromyalgia. Continue symptomatic care and pain management. Morbid obesity with BMI of 39.5 kg/m. Recommend outpatient structured weight management program. Hospital Course: Patient is a very pleasant 41-year-old female with past medical history of anxiety, gastroparesis, chronic fatigue syndrome, fibromyalgia, hypertension, and hypothyroidism. She presented to the emergency department with a chief complaint of exertional shortness of breath and chest discomfort accompanied by lower extremity edema. Patient reports this has progressively worsened over the past few and she is no longer able to perform typical activities of daily living. Patient reports this is also exacerbated her anxiety and she has been also having increased anxiety at rest. Patient reports taking CBD daily as well as as needed Valium 5 mg every 6 hours for treatment of her anxiety, however came to the emergency department for evaluation of her chest pain, shortness of breath, and lower extremity edema. Patient underwent full evaluation in our emergency department. EKG was unremarkable revealing normal sinus rhythm at 74 bpm with no noted T-wave or ST abnormalities showing no signs of acute ischemia. CBC, coags, and CMP were unremarkable. Troponin negative at less than 0.012. ProBNP negative at 69. TSH normal findings at 1.110. D-dimer was slightly elevated at 0.77.CTA negative for pulmonary emboli. Chest x-ray negative for acute cardiopulmonary process. Right lower extremity Doppler negative for DVT. X-ray of right foot revealing soft tissue swelling negative for fracture. Patient was admitted under our services with consultation to cardiology. Troponins trended overnight and all negative at less than 0.0123 draws. Echocardiogram revealing normal EF 55-60% with borderline left ventricular hypertrophy and trace mitral and tricuspid regurgitation.. Lipid profile revealing elevated triglycerides of 200, cholesterol 234, and LDL of 150.8. Patient underwent Cardiolite stress test revealing normal EF of 56% and no evidence for reversible ischemia. Patient is clear for discharge from cardiac standpoint at this time and is medically stable for discharge home. It was recommended that patient stop taking Valium every 6 hours for treatment of her anxiety as this can also lead to fatigue and feeling of generalized weakness. Patient also recommended to discontinue use of daily CBD supplements and marijuana use. She was discharged home on atorvastatin 40 mg daily metoprolol 12.5 mg daily. Patient instructed to follow up outpatient with PCP in 1-2 days and cardiology in 1 week. Physical exam: Vital signs reviewed and stable. General: Nontoxic, no distress and appears stated age. Derm: Skin warm and dry, normal coloration for ethnicity. Head: Atraumatic, normocephalic and symmetric. Eyes: EOMs intact, no lid lag, and anicteric sclera Mouth: no lip lesions, mucus membranes moist Cardiovascular: regular rate and rhythm with normal S1S2, no murmur, positive posterior tibial pulses bilaterally, and cap refill < 2 seconds. Lungs: Respirations even, regular, and unlabored on room air. Lungs CTA bilate rally, no rhonchi, no rales, no wheezing, and no accessory muscle usage. Abdominal: soft, nontender to palpation, no guarding, no appreciable organomegaly Ext: ROM intact. No gross muscle atrophy, no contractures. No lower extremity edema noted upon assessment. Patient has small bump/area of swelling on the dorsal surface of right foot, no bruising or discoloration noted. Neuro: Speech clear, face symmetrical and CN II-XII grossly intact with no noted focal neuro deficits Psych: Alert and oriented to person, place, time, and situation. Appropriate and pleasant affect. A total of 35 minutes of time were spent preparing this complex discharge summary. Pt was discharged on 02/12/22 at 2:28 PM. Patient Condition at Discharge: Stable Plan - Discharge Summary Discharge Rx Participant: Yes New Discharge Prescriptions: New Atorvastatin [Lipitor] 40 mg PO DAILY 30 Days #30 tablet Metoprolol Succinate (ER) [Toprol XL] 12.5 mg PO DAILY 30 Days #30 tab Continue EPINEPHrine (Auto Inject) [Epipen] 0.3 mg IM ONCE PRN PRN Reason: Anaphylaxis DULoxetine HCL [Cymbalta] 60 mg PO DAILY Levothyroxine Sodium [Synthroid] 75 mcg PO DIRECTED diazePAM [Valium] 5 mg PO HS Gabapentin 900 mg PO HS Rimegepant Sulfate [Nurtec Odt] 75 mg PO DAILY PRN PRN Reason: Migraine Headache Mirtazapine [Remeron] 15 mg PO HS oxyCODONE-APAP 5-325MG [Percocet 5-325 mg] 1 tab PO BID PRN PRN Reason: Pain tiZANidine HCL 4 mg PO TID PRN PRN Reason: Muscle Pain hydrOXYzine pamoate [Vistaril] 25 mg PO HS Gabapentin [Neurontin] 300 mg PO DAILY Omeprazole 20 mg PO DAILY DULoxetine HCL [Cymbalta] 30 mg PO DAILY Ondansetron [Zofran] 4 mg PO Q8HR PRN #30 tab PRN Reason: Nausea hydroCHLOROthiazide 25 mg PO DAILY Discontinued diazePAM [Valium] 5 mg PO Q6H PRN PRN Reason: Anxiety Propranolol [Inderal] 40 mg PO DAILY Discharge Medication List DULoxetine HCL [Cymbalta] 60 mg PO DAILY 10/19/20 [History] EPINEPHrine (Auto Inject) [Epipen] 0.3 mg IM ONCE PRN 10/19/20 [History] Gabapentin [Neurontin] 300 mg PO DAILY 10/19/20 [History] Levothyroxine Sodium [Synthroid] 75 mcg PO DIRECTED 10/19/20 [History] Omeprazole 20 mg PO DAILY 10/19/20 [History] hydrOXYzine pamoate [Vistaril] 25 mg PO HS 10/19/20 [History] oxyCODONE-APAP 5-325MG [Percocet 5-325 mg] 1 tab PO BID PRN 10/19/20 [History] tiZANidine HCL 4 mg PO TID PRN 10/19/20 [History] diazePAM [Valium] 5 mg PO HS 07/05/21 [History] DULoxetine HCL [Cymbalta] 30 mg PO DAILY 10/20/21 [History] Gabapentin 900 mg PO HS 10/20/21 [History] Rimegepant Sulfate [Nurtec Odt] 75 mg PO DAILY PRN 10/20/21 [History] Ondansetron [Zofran] 4 mg PO Q8HR PRN #30 tab 10/22/21 [Rx] Mirtazapine [Remeron] 15 mg PO HS 02/10/22 [History] hydroCHLOROthiazide 25 mg PO DAILY 02/10/22 [History] Atorvastatin [Lipitor] 40 mg PO DAILY 30 Days #30 tablet 02/12/22 [Rx] Metoprolol Succinate (ER) [Toprol XL] 12.5 mg PO DAILY 30 Days #30 tab 02/12/22 [Rx] Follow up Appointment(s)/Referral(s): Evan Monaco DO [STAFF PHYSICIAN] - 1 Week Bernardo Fishman DO [Primary Care Provider] - 1-2 days Patient Instructions/Handouts: Chest Pain (DC), Cardiac Stress Test (DC), Benefits of an Active Lifestyle (DC) Activity/Diet/Wound Care/Special Instructions: Activity: As tolerated. Take breaks as needed. Diet: Heart healthy and carb consistent diet. Avoid salts, or foods with hidden salts such as canned or boxed foods and frozen dinners. Extra salt makes your heart work harder and traps the fluid in your body for longer. Special Instructions: Take all of your medications as directed and remember to keep all of your doctor's appointments and follow-up as needed. It is advised that you stop taking Valium every 6 hours for treatment of your anxiety as this can also lead to fatigue and feeling of generalized weakness. It is also recommended to discontinue use of daily CBD supplements and marijuana use. Thank you for allowing us to participate in your care, it was truly a pleasure having you for our patient!!! Discharge Disposition: HOME SELF-CARE
--- NOTE | 2022-02-12 15:35 | CA ---
Exercise Stress Test Report Name: Shane Pickard Exam Date: 02/12/2022 09:44 Exam Location: [place] Stress Ht (in): 63 Wt (lb): 230 BSA: 2.05 Ordering Phys: Evan Monaco DO Referring Phys: SRINIVAS,, Technologist: Mauro Eden Age: 41 Gender: F : 1980 Procedure CPT: Indications: Reflex order-Stress test ICD-10 Codes: Patient History: Medications: SEE CHART Meds past 24 hrs: Pretest Chest Pain: STRESS TEST Antonino Protocol Exercise Duration (min:sec): 04:[address] Depressions (mm): Angina Score: Ma Score: Resting HR (bpm): 75 Peak HR (bpm): 164 Resting BP (mmHg): 128 / 68 Peak BP (mmHg): 194 / 97 MPHR: 177 Target HR: 150 % MPHR: 93 METS: 6.2 Total Dose: Peak Dose: Atropine: Double Product: 10290 BP Response: Stress Termination: Reached target heart rate Stress Symptoms: SHORT OF BREATH, VERTIGO Stress Summary: ECG ANALYSIS Resting ECG: Stress ECG: CONCLUSIONS Baseline heart rate 75 beats a minute, Baseline blood pressure 128/68 mmHg Patient exercised on a Antonino protocol for 4 minutes 29 seconds achieving a peak heart rate 161 beats a minute. Peak blood pressure 190/80. His mercury No ECG evidence for ischemia No arrhythmias Dr. Gray Roca MD (Electronically Signed) Final Date: 12 February 2022 15:34
[2022-02-12 15:40] VITALS: BP 135/80; PULSE 109; TEMP 98.3
== END 2022-02-12 15:40 | disposition home or self-care (01) ==
LOC: EC 21:38 → 6NMEDSUR 02-10 03:25
PROVIDERS: ADMIT Internal Medicine; ATTEND Internal Medicine
DX: R07.89 Other chest pain (principal); J45.909 Unspecified asthma, uncomplicated; R79.89 Other specified abnormal findings of blood chemistry; F41.9 Anxiety disorder, unspecified; I11.9 Hypertensive heart disease without heart failure; E03.9 Hypothyroidism, unspecified; D80.2 Selective deficiency of immunoglobulin A [IgA]; K31.84 Gastroparesis; M06.9 Rheumatoid arthritis, unspecified; G47.30 Sleep apnea, unspecified; M79.604 Pain in right leg; H35.30 Unspecified macular degeneration; K21.9 Gastro-esophageal reflux disease without esophagitis; E78.5 Hyperlipidemia, unspecified; R53.82 Chronic fatigue, unspecified; M79.7 Fibromyalgia; G89.21 Chronic pain due to trauma; E78.1 Pure hyperglyceridemia; N30.10 Interstitial cystitis (chronic) without hematuria; R41.3 Other amnesia; R60.0 Localized edema; E66.01 Morbid (severe) obesity due to excess calories; Z68.39 Body mass index [BMI] 39.0-39.9, adult; F43.10 Post-traumatic stress disorder, unspecified; Z79.890 Hormone replacement therapy; Z79.899 Other long term (current) drug therapy; Z88.2 Allergy status to sulfonamides; Z88.8 Allergy status to other drugs, medicaments and biological substances; Z88.1 Allergy status to other antibiotic agents; Z91.041 Radiographic dye allergy status; Z91.040 Latex allergy status; Z87.820 Personal history of traumatic brain injury; Z86.14 Personal history of Methicillin resistant Staphylococcus aureus infection; Z87.828 Personal history of other (healed) physical injury and trauma; Z85.828 Personal history of other malignant neoplasm of skin; Z98.1 Arthrodesis status; Z90.710 Acquired absence of both cervix and uterus; Z87.892 Personal history of anaphylaxis; Z98.890 Other specified postprocedural states; Z82.0 Family history of epilepsy and other diseases of the nervous system; Z80.8 Family history of malignant neoplasm of other organs or systems; Z80.42 Family history of malignant neoplasm of prostate; Z82.49 Family history of ischemic heart disease and other diseases of the circulatory system
CPT/HCPCS: 96375 ×2; 96374; 99285; 36415 ×2; 94640; 93005; 93017; 93306; 85379; 83880; 80061; 80053; 84443; 83735; 84484 ×2; 85025; 85610; 85730; 73630; 71045; 93971; 71275; 78452; G0378 ×3; A9500; J1200; J2930; J2270; J1885; Q9967

== ENCOUNTER → 2022-03-07 | Outpatient (CLI) | payer MEDICARE, OTHER ==
--- NOTE | 2022-03-08 09:46 | NM ---
EXAMINATION TYPE: NM thyroid image w uptake DATE OF EXAM: 03/08/2022 COMPARISON: NONE HISTORY: Thyrotoxicosis TECHNIQUE: Thyroid iodine uptake is calculated and images performed after the oral administration of 311 uCi 1-123 Capsule. FINDINGS: There is reduced distribution of activity along the periphery of the gland bilaterally. Th e 4 hour iodine uptake is calculated at 6.4% (normal range 8-14%). The 24-hour iodine uptake is calcu lated at 17.6% (normal range 15-35%). IMPRESSION: 1. Correlate for borderline hypothyroidism. 3. Recommend correlation with ultrasound to exclude small cold defects along the periphery of the mid upper zone both thyroid lobes
== END | disposition home or self-care (01) ==
LOC: RADNMMAIN 08:40
PROVIDERS: ATTEND Family Medicine
DX: Z53.9 Procedure and treatment not carried out, unspecified reason (principal)
CPT/HCPCS: 78014

== ENCOUNTER → 2022-04-02 | Outpatient (CLI) | payer MEDICARE, OTHER | END | disposition home or self-care (01) | LOC: LABWHC1 15:53 | PROVIDERS: ATTEND Internal Medicine Endocrinology, Diabetes & Metabolism | DX: E03.8 Other specified hypothyroidism (principal); R35.0 Frequency of micturition | CPT/HCPCS: 36415; 84443; 87086 ==

== ENCOUNTER → 2022-10-01 | Outpatient (CLI) | payer MEDICARE, OTHER ==
--- NOTE | 2022-10-01 11:42 | FL ---
EXAMINATION TYPE: FL UGI air w small bowel DATE OF EXAM: 10/01/2022 COMPARISON: CT abdomen pelvis 01/06/2021 HISTORY: Abdominal pain, nausea, vomiting. TECHNIQUE: A double contrast UGI study is performed with small bowel follow through. A total of 37 seconds of fluoroscopic time was utilized during procedure and 84 images obtained. Total dose area p roduct (DAP) in uGy*m?, mGy*cm? (or similar): 0.222. FINDINGS: Radial Arm Saw Operator image of the abdomen shows no gross abnormality. The esophagus shows normal motility and emptying into the stomach. No evidence of hiatal hernia or s tricture noted. The stomach shows normal distensibility, peristalsis, and mucosal folds. No evidence of any mass or ulcer disease. No significant esophageal reflux was seen during real time performance of this study. The duodenal bulb and sweep are unremarkable. The small bowel study shows normal transit to the colon in 1 hour. There is normal mucosal fold patte rn throughout the small bowel. There is no evidence of any stricture or filling defect noted. The t erminal ileum is unremarkable. IMPRESSION: Normal upper GI study and small bowel follow through.
== END | disposition home or self-care (01) ==
LOC: RADFLMAIN 08:58
PROVIDERS: ATTEND Internal Medicine Gastroenterology
DX: R10.9 Unspecified abdominal pain (principal); R11.2 Nausea with vomiting, unspecified
CPT/HCPCS: 74240; 74248

== ENCOUNTER → 2022-10-17 | Outpatient (CLI) | payer MEDICARE, OTHER ==
[2022-10-17 21:21] LABS: ALT 14 U/L (8-44); AST 13 U/L (13-35); African American GFR (CKD) 101.2 (60.0-200.0); Albumin 3.8 g/dL (3.8-4.9); Albumin/Globulin Ratio 1.59 (1.60-3.17); Alkaline Phosphatase 105 U/L (41-126); Carbon Dioxide 24.3 mmol/L (20.0-27.5); Chloride 107 mmol/L (96-109); Globulin 2.4 g/dL (1.6-3.3); Glucose 94 mg/dL (70-110); Non-African American GFR(CKD) 87.3 (60.0-200.0); Potassium 4.9 mmol/L (3.5-5.5); Sodium 140 mmol/L (135-145); Total Bilirubin <0.15 mg/dL (0.30-1.20); Total Protein 6.2 g/dL (6.2-8.2)
== END | disposition home or self-care (01) ==
LOC: LABWHC1 15:37
PROVIDERS: ATTEND Internal Medicine Endocrinology, Diabetes & Metabolism
DX: E21.3 Hyperparathyroidism, unspecified (principal)
CPT/HCPCS: 36415; 80053; 82306; 84443; 86376

== ENCOUNTER → 2022-11-06 | Outpatient (CLI) | payer MEDICARE, OTHER ==
[2022-11-06 20:32] LABS: ALT 14 U/L; AST 16 U/L; Albumin/Globulin Ratio 1.54 Ratio; Alkaline Phosphatase 100 U/L; BUN/Creat Ratio 9.33 Ratio; Blood Urea Nitrogen 8.4 mg/dL; Calcium 9.5 mg/dL; Carbon Dioxide 25.7 mmol/L; Chloride 105 mmol/L; Globulin 2.6 d/dL; Glucose 90 mg/dL; Potassium 4.6 mmol/L; Sodium 139 mmol/L; Total Bilirubin <0.2 mg/dL; Total Protein 6.6 d/dL
== END | disposition home or self-care (01) ==
LOC: LABWHC1 16:22
PROVIDERS: ATTEND Internal Medicine Rheumatology
DX: E21.3 Hyperparathyroidism, unspecified (principal)
CPT/HCPCS: 36415; 80053; 82306; 83970; 84443; 86376

== ENCOUNTER 2023-04-24 12:10 | Day surgery (SDC) | payer MEDICARE, OTHER ==
[2023-04-22 13:03] VITALS: BMI 28.6
[2023-04-24 13:17] VITALS: TEMP 97.1
[2023-04-24] MEDS ORDERED: LIDOCAINE 1% INJ 10MG/ML (20 ML MDV) ONE (14:29)
[2023-04-24] MEDS ORDERED: PROPOFOL 10 MG/ML 20 ML VIAL IV ONE (14:29)
--- NOTE | 2023-04-24 14:53 | P.PCN ---
Date of Procedure: 04/24/23 Procedure(s) Performed: BRIEF HISTORY: Patient is a 42-year-old pleasant female scheduled for an elective colonoscopy as a part of evaluation of watery diarrhea and constipation and intermittent rectal bleeding for several months duration. PROCEDURE PERFORMED: Colonoscopy with biopsy. PREOPERATIVE DIAGNOSIS: Change in bowel habits and intermittent rectal bleeding. IV sedation per Anesthesia. PROCEDURE: After informed consent was obtained, the patient, was brought into the endoscopy unit. IV sedation was administered by Anesthesia under continuous monitoring. Digital rectal examination was normal. Initially the Olympus CF-160 flexible video colonoscope was then inserted in the rectum, gradually advanced into the cecum without any difficulty. Careful examination was performed as the scope was gradually being withdrawn. Ileocecal valve and the appendiceal orifice were visualized and appeared normal. Prep was excellent. Mucosa of the cecum, ascending colon, transverse colon, descending colon, sigmoid colon, and rectum appeared normal. In the rectum there was a 3 mm polyp that was removed by cold biopsy. Retroflexion was performed in the rectum and small internal hemorrhoids were seen. The patient tolerated the procedure well. IMPRESSION: 3 mm rectal polyp status post cold biopsy Small internal hemorrhoids Rest of the colon appeared normal RECOMMENDATIONS: Findings of this examination were discussed with the patient as well as her family. She was advised to follow with the biopsy results. Continue with a high-fiber diet and take fiber supplements a regular basis. Recommend repeat colonoscopy in 10 years.
[2023-04-24 15:14] VITALS: RESP 16
[2023-04-24 15:42] VITALS: BP 121/84; PULSE 82
== END 2023-04-24 15:38 | disposition home or self-care (01) ==
LOC: ORWHC2ENDO 12:10
PROVIDERS: ATTEND Internal Medicine Gastroenterology
DX: K62.1 Rectal polyp (principal); K62.5 Hemorrhage of anus and rectum; K63.5 Polyp of colon; K64.8 Other hemorrhoids
CPT/HCPCS: 88305; 45380; J2001; J2704

== ENCOUNTER 2023-11-15 18:05 | Observation (INO) | payer MEDICARE, OTHER ==
--- NOTE | 2023-11-15 18:39 | ED ---
General Adult HPI - General Chief complaint: Nausea/Vomiting/Diarrhea Stated complaint: Vomiting Time Seen by Provider: 11/15/23 18:30 Source: patient, RN notes reviewed, old records reviewed Mode of arrival: EMS Limitations: no limitations - History of Present Illness Initial comments: Patient is a pleasant 43-year-old female present to the emergency department with concerns with nausea vomiting. Onset of symptoms was this morning. Patient had similar symptoms a couple weeks ago that lasted around 4 days. Patient does have history of gastroparesis. Patient does rarely smoke marijuana, last was 2 weeks ago. No history of diabetes. Patient has had intermittent constipation and diarrhea. - Related Data Home Medications Medication Instructions Recorded Confirmed DULoxetine HCL [Cymbalta] 60 mg PO DAILY 10/19/20 11/16/23 EPINEPHrine (Auto Inject) [Epipen] 0.3 mg IM ONCE PRN 10/19/20 11/16/23 Omeprazole 20 mg PO AC-BID 10/19/20 11/16/23 tiZANidine HCL 4 mg PO TID PRN 10/19/20 11/16/23 DULoxetine HCL [Cymbalta] 30 mg PO DAILY 10/20/21 11/16/23 Cholecalciferol [Vitamin D3 (25 50 mcg PO DAILY 04/22/23 11/16/23 Mcg = 1000 Iu)] Gabapentin [Neurontin] 800 mg PO HS 04/22/23 11/16/23 Hydroxychloroquine Sulfate 200 mg PO DAILY 04/22/23 11/16/23 [Plaquenil] Butalb/APAP/Caff 50-325-40Mg 1 tab PO BID PRN 11/16/23 11/16/23 [Fioricet 50-325-40] Clindamycin Phosphate 1 applic TOPICAL BID PRN 11/16/23 11/16/23 Elderberry Fruit [Elderberry] 350 mg PO DAILY 11/16/23 11/16/23 Mag Hydrox/Al Hydrox/Simeth 30 ml PO Q4H PRN 11/16/23 11/16/23 [Maalox] Mirtazapine 30 mg PO HS 11/16/23 11/16/23 Mupirocin 2% Oint [Bactroban 2% 1 applic TOPICAL DAILY PRN 11/16/23 11/16/23 Oint] NIFEdipine XL [Procardia Xl] 30 mg PO DAILY 11/16/23 11/16/23 Ondansetron Odt [Zofran Odt] 4 mg PO Q6H PRN 11/16/23 11/16/23 Promethazine Suppository 25 mg RECTAL BID PRN 11/16/23 11/16/23 [Phenergan] Propranolol HCl [Propranolol HCl 80 mg PO HS 11/16/23 11/16/23 ER] azaTHIOprine [Imuran] 50 mg PO DAILY 11/16/23 11/16/23 oxyCODONE-APAP 5-325MG [Percocet 1 tab PO DAILY PRN 11/16/23 11/16/23 5-325 mg] Previous Rx's Medication Instructions Recorded Metoclopramide [Reglan] 5 mg PO ACHS #14 tab 11/16/23 Allergies Allergy/AdvReac Type Severity Reaction Status Date / Time adhesive Allergy Rash/Hives Verified 11/16/23 10:42 ciprofloxacin [From Cipro] Allergy Rash/Hives Verified 11/16/23 10:42 cyclobenzaprine Allergy Swelling Verified 11/16/23 10:42 [From Flexeril] Iodinated Contrast Media Allergy Anaphylaxis Verified 11/16/23 10:42 latex Allergy Anaphylaxis Verified 11/16/23 10:42 levofloxacin [From Levaquin] Allergy Rash/Hives Verified 11/16/23 10:42 metronidazole [From Flagyl] Allergy Swelling Verified 11/16/23 10:42 sulfamethoxazole Allergy Rash/Hives Verified 11/16/23 10:42 [From Bactrim] trimethoprim [From Bactrim] Allergy Rash/Hives Verified 11/16/23 10:42 haloperidol [From Haldol] AdvReac Hallucinati Verified 11/16/23 10:42 ons Review of Systems ROS Statement: Those systems with pertinent positive or pertinent negative responses have been documented in the HPI. ROS Other: All systems not noted in ROS Statement are negative. Constitutional: Denies: fever Eyes: Denies: eye pain ENT: Denies: ear pain Respiratory: Denies: cough Cardiovascular: Denies: chest pain Endocrine: Denies: fatigue Gastrointestinal: Reports: as per HPI, nausea, vomiting, diarrhea, constipation Genitourinary: Denies: dysuria Musculoskeletal: Denies: back pain Past Medical History Past Medical History: Asthma, Blood Disorder, Cancer, Eye Disorder, Fibromyalgia, GERD/Reflux, Hypertension, Rheumatoid Arthritis (RA), Sleep Apnea/CPAP/BIPAP, Thyroid Disorder Additional Past Medical History / Comment(s): Spinal cord injury, brain injury with resultant chronic neck, bilateral shoulder and back pain, coordination and memory problems. IgA Deficiency. States "can only have IgA deficient blood only or I will have an Anaphylactic Reaction." Chronic Interstitial Cystitis, Gastroparesis. CPAP use. Skin cancer 2 yrs ago on back. Bilateral Macular Degeneration. LUPUS History of Any Multi-Drug Resistant Organisms: MRSA Date of last positivie culture/infection: 2015 MDRO Source:: Right Inner Thigh Past Surgical History: Back Surgery, Hysterectomy Additional Past Surgical History / Comment(s): Spinal fusion, bilateral bunionectomy, skin cancer removed from back. Past Anesthesia/Blood Transfusion Reactions: No Reported Reaction, Motion Sickness Additional Past Anesthesia/Blood Transfusion Reaction / Comment(s): No history of blood transfusion. IgA Deficiency, can only have IgA Deficient blood or will have Anaphylactic Reaction. Past Psychological History: Anxiety, PTSD Smoking Status: Never smoker - Past Family History Father Family Medical History: Cancer, Seizure Disorder Additional Family Medical History / Comment(s): Prostate Cancer. Mother Family Medical History: Cancer Additional Family Medical History / Comment(s): Skin cancer. General Exam Limitations: no limitations General appearance: alert, in no apparent distress Head exam: Present: normocephalic Eye exam: Present: normal appearance Neck exam: Present: normal inspection Respiratory exam: Present: normal lung sounds bilaterally Cardiovascular Exam: Present: regular rate, normal rhythm Expanded Peripheral pulses: 2+: Dorsalis Pedis (R), Dorsalis Pedis (L) GI/Abdominal exam: Present: soft. Absent: tenderness Extremities exam: Present: normal inspection. Absent: pedal edema, calf tend erness Neurological exam: Present: alert Psychiatric exam: Present: normal affect, normal mood Skin exam: Present: normal color Course Vital Signs 11/15/23 11/15/23 11/16/23 18:15 22:24 04:51 Temperature 97.5 F L Pulse Rate 77 90 95 Respiratory 20 18 18 Rate Blood Pressure 154/102 150/90 145/95 O2 Sat by Pulse 99 99 95 Oximetry EKG Findings - EKG Results: EKG: interpreted by ERMD, sinus rhythm, normal axis, normal QRS, normal ST/T Medical Decision Making - Medical Decision Making Was pt. sent in by a medical professional or institution (, [facility], HEALTH INFORMATION SPECIALIST, urgent care, hospital, or care home...) When possible be specific @ -No Did you speak to anyone other than the patient for history (EMS, parent, family, police, friend...)? What history was obtained from this source @ -No Did you review nursing and triage notes (agree or disagree)? Why? @ -I reviewed and agree with nursing and triage notes Were old charts reviewed (outside hosp., previous admission, EMS record, old EKG, old radiological studies, urgent care reports/EKG's, care home records)? Report findings @ -No old charts were reviewed Differential Diagnosis (chest pain, altered mental status, abdominal pain women, abdominal pain men, vaginal bleeding, weakness, fever, dyspnea, syncope, headache, dizziness, GI bleed, back pain, seizure, CVA, palpatations, mental health, musculoskeletal)? @ -Differential Abdominal Pain Women: Appendicitis, Cholecystitis, diverticulosis, ischemic bowel, pancreatitis, hepatitis, UTI, gastroenteritis, AAA, incarcerated hernia, bowel obstruction, constipation, inflammatory bowel, hepatitis, peptic ulcer disease, splenic infarction, perforated viscus, vulvitis, ovarian torsion, PID, kidney stone, placenta abruption, this is not meant to be an all-inclusive list EKG interpreted by me (3pts min.). @ -As above X-rays interpreted by me (1pt min.). @ -None done CT interpreted by me (1pt min.). @ -None done U/S interpreted by me (1pt. min.). @ -None done What testing was considered but not performed or refused? (CT, X-rays, U/S, labs)? Why? @ -None What meds were considered but not given or refused? Why? @ -None Did you discuss the management of the patient with other professionals (professionals i.e. [facility], HEALTH INFORMATION SPECIALIST, lab, RT, psych nurse, older adult social work specialist, side panel padder, teacher, associate loan officer, case assistant)? Give summary @ -No Was smoking cessation discussed for >3mins.? @ -No Was critical care preformed (if so, how long)? @ -No Were there social determinants of health that impacted care today? How? (Home lessness, low income, unemployed, alcoholism, drug addiction, transportation, low edu. Level, literacy, decrease access to med. care, snf, rehab)? @ -No Was there de-escalation of care discussed even if they declined (Discuss DNR or withdrawal of care, Hospice)? DNR status @ -No What co-morbidities impacted this encounter? (DM, HTN, Smoking, COPD, CAD, Cancer, CVA, ARF, Chemo, Hep., AIDS, mental health diagnosis, sleep apnea, morbid obesity)? @ -None Was patient admitted / discharged? Hospital course, mention meds given and route, prescriptions, significant lab abnormalities, going to OR and other pertinent info. @ -Patient presents with nausea vomiting. Patient reevaluated and has con tinued symptoms. Patient was admitted to medicine. Undiagnosed new problem with uncertain prognosis? @ -No Drug Therapy requiring intensive monitoring for toxicity (Heparin, Nitro, Insulin, Cardizem)? @ -No Were any procedures done? @ -No Diagnosis/sym nausea and vomit ptom? @ -Nausea and vomiting, gastroparesis Acute, or Chronic, or Acute on Chronic? @ -Acute on chronic Uncomplicated (without systemic symptoms) or Complicated (systemic symptoms)? @ -Default Side effects of treatment? @ -No Exacerbation, Progression, or Severe Exacerbation? @ -No Poses a threat to life or bodily function? How? (Chest pain, [place], [place], pneumonia, PE, COPD, DKA, ARF, appy, cholecystitis, CVA, Diverticulitis, Homicidal, Suicidal, threat to staff... and all critical care pts) @ -No - Lab Data Result diagrams: 11/15/23 19:18 11/15/23 19:45 Lab Results 11/15/23 11/15/23 Range/Units 19:18 19:45 WBC 7.3 (3.8-10.6) k/uL RBC 4.47 (3.80-5.40) m/uL Hgb 14.4 (11.4-16.0) gm/dL Hct 43.7 (34.0-46.0) % MCV 97.7 (80.0-100.0) fL MCH 32.1 (25.0-35.0) pg MCHC 32.8 (31.0-37.0) g/dL RDW 15.2 (11.5-15.5) % Plt Count 352 (150-450) k/uL MPV 8.8 Neutrophils % 85 % Lymphocytes % 9 % Monocytes % 5 % Eosinophils % 1 % Basophils % 0 % Neutrophils # 6.2 (1.3-7.7) k/uL Lymphocytes # 0.6 L (1.0-4.8) k/uL Monocytes # 0.3 (0-1.0) k/uL Eosinophils # 0.1 (0-0.7) k/uL Basophils # 0.0 (0-0.2) k/uL Hypochromasia Slight Poikilocytosis Slight Sodium 139 (137-145) mmol/L Potassium 4.5 (3.5-5.1) mmol/L Chloride 109 H (98-107) mmol/L Carbon Dioxide 23 (22-30) mmol/L Anion Gap 7 mmol/L BUN 5 L (7-17) mg/dL Creatinine 0.69 (0.52-1.04) mg/dL Est GFR (CKD-EPI)AfAm >90 (>60 ml/min/1.73 sqM) Est GFR (CKD-EPI)NonAf >90 (>60 ml/min/1.73 sqM) Glucose 103 H (74-99) mg/dL Calcium 9.3 (8.4-10.2) mg/dL Total Bilirubin 0.6 (0.2-1.3) mg/dL AST 28 (14-36) U/L ALT 25 (4-34) U/L Alkaline Phosphatase 105 (38-126) U/L Total Protein 7.3 (6.3-8.2) g/dL Albumin 4.6 (3.5-5.0) g/dL Amylase 61 (30-110) U/L Lipase 85 (23-300) U/L Disposition Clinical Impression: Nausea and vomiting Disposition: ADMITTED IP TO THIS HOSP Is patient prescribed a controlled substance at d/c from ED?: No
[2023-11-15] MEDS: SODIUM CHLORIDE 0.9% 1,000 ML IV STA (18:55)
[2023-11-15] MEDS: METOCLOPRAMIDE 5 MG/ML 2 ML VIAL IVP STA (18:55)
[2023-11-15] MEDS: FAMOTIDINE 20 MG/2 ML VIAL IV STA (18:57)
[2023-11-15] MEDS: diphenhydrAMINE 50 MG/ML 1 ML VIAL IVP STA (18:58)
[2023-11-15] MEDS: LORazepam 2 MG/ML INJ IV STA (19:01)
[2023-11-15 20:12] LABS: Basophils % (A) 0 %; Eosinophils # (A) 0.1 k/uL (0-0.7); Eosinophils % (A) 1 %; HCT 43.7 % (34.0-46.0); HGB 14.4 gm/dL (11.4-16.0); Hypochromasia Slight; Lymphocytes # (A) 0.6 k/uL (1.0-4.8); Lymphocytes % (A) 9 %; MCH 32.1 pg (25.0-35.0); MCHC 32.8 g/dL (31.0-37.0); MCV 97.7 fL (80.0-100.0); Mean Platelet Volume 8.8; Monocytes # (A) 0.3 k/uL (0-1.0); Monocytes % (A) 5 %; Neutrophils # (A) 6.2 k/uL (1.3-7.7); Neutrophils % (A) 85 %; Platelet Count 352 k/uL (150-450); Poikilocytosis Slight; RBC 4.47 m/uL (3.80-5.40); RDW 15.2 % (11.5-15.5); WBC 7.3 k/uL (3.8-10.6)
[2023-11-15] MEDS: ONDANSETRON 4 MG/2 ML VIAL IVP STA (21:06)
[2023-11-15 22:34] LABS: ALT 25 U/L (4-34); AST 28 U/L (14-36); African American GFR (CKD) >90 (>60 ml/min/1.73 sqM); Albumin 4.6 g/dL (3.5-5.0); Alkaline Phosphatase 105 U/L (38-126); Amylase 61 U/L (30-110); Anion Gap 7 mmol/L; Blood Urea Nitrogen 5 mg/dL (7-17); Calcium 9.3 mg/dL (8.4-10.2); Carbon Dioxide 23 mmol/L (22-30); Chloride 109 mmol/L (98-107); Glucose 103 mg/dL (74-99); Lipase 85 U/L (23-300); Non-African American GFR(CKD) >90 (>60 ml/min/1.73 sqM); Potassium 4.5 mmol/L (3.5-5.1); Sodium 139 mmol/L (137-145); Total Bilirubin 0.6 mg/dL (0.2-1.3); Total Protein 7.3 g/dL (6.3-8.2)
[2023-11-16] MEDS: METOCLOPRAMIDE 5 MG/ML 2 ML VIAL IVP STA (03:13)
[2023-11-16] MEDS ORDERED: NALOXONE 0.4 MG/ML 1 ML VIAL IV PRN (03:35)
[2023-11-16] MEDS ORDERED: ONDANSETRON 4 MG/2 ML VIAL IVP PRN ×2 (03:35→10:54)
[2023-11-16] MEDS ORDERED: PROCHLORPERAZINE SUPPOSITORY 25 MG SUPP RECTAL PRN (03:35)
[2023-11-16] MEDS: SODIUM CHLORIDE 0.9% 1,000 ML IV SCH (04:12)
[2023-11-16] MEDS: METOCLOPRAMIDE 5 MG/ML 2 ML VIAL IVP PRN (06:09)
[2023-11-16] MEDS: FAMOTIDINE 20 MG TAB PO SCH (09:06)
[2023-11-16] MEDS ORDERED: BUTALB/APAP/CAFF 50-325-40MG TAB PO PRN (10:57)
[2023-11-16] MEDS ORDERED: oxyCODONE-APAP 5-325MG 1 EACH TAB PO PRN (10:57)
[2023-11-16] MEDS ORDERED: PROMETHAZINE SUPPOSITORY 25 MG SUPP RECTAL PRN (10:57)
[2023-11-16] MEDS ORDERED: MUPIROCIN 2% OINT 22 GM TUBE TOPICAL PRN (10:57)
[2023-11-16] MEDS ORDERED: tiZANidine 4 MG TAB PO PRN (10:57)
--- NOTE | 2023-11-16 11:09 | P.HPIM ---
History of Present Illness 42-year-old female came in with complaints of nausea vomiting patient has history of gastroparesis but does not have any history of diabetes mellitus. Etiology of gastroparesis is not known patient has not been eating drinking last 4 days but patient is doing well without nausea. Patient was started on 3 medications Compazine, Zofran, Reglan and Zofran and and Compazine is being discontinued because of extraparametal side effects and QT prolongation concerns when we combine these 3 medications. Patient will be started on soft diet if she can tolerate patient will be discharged today patient has multiple other medical problems including autoimmune issues. Patient does not have any fever chills patient had squeezing or crampy abdominal pain without any symptoms of gastritis septic ulcer disease. Patient follows up with gastroenterology and rheumatology on regular basis as an outpatient. REVIEW OF SYSTEMS: CONSTITUTIONAL: No fever, no malaise, no fatigue. HEENT: No recent visual problems or hearing problems. Denied any sore throat. CARDIOVASCULAR: No chest pain, orthopnea, PND, no palpitations, no syncope. PULMONARY: No shortness of breath, no cough, no hemoptysis. GASTROINTESTINAL: No diarrhea, NEUROLOGICAL: No headaches, no weakness, no numbness. HEMATOLOGICAL: Denies any bleeding or petechiae. GENITOURINARY: Denies any burning micturition, frequency, or urgency. MUSCULOSKELETAL/RHEUMATOLOGICAL: Denies any joint pain, swelling, or any muscle pain. ENDOCRINE: Denies any polyuria or polydipsia. The rest of the 14-point review of systems is negative. PHYSICAL EXAMINATION: GENERAL: The patient is alert and oriented x3, not in any acute distress. Well developed, well nourished. HEENT: Pupils are round and equally reacting to light. EOMI. No scleral icterus. No conjunctival pallor. Normocephalic, atraumatic. No pharyngeal erythema. No thyromegaly. CARDIOVASCULAR: S1 and S2 present. No murmurs, rubs, or gallops. PULMONARY: Chest is clear to auscultation, no wheezing or crackles. ABDOMEN: Soft, nontender, nondistended, normoactive bowel sounds. No palpable organomegaly. MUSCULOSKELETAL: No joint swelling or deformity. EXTREMITIES: No cyanosis, clubbing, or pedal edema. NEUROLOGICAL: Gross neurological examination did not reveal any focal deficits. SKIN: No rashes. Assessment and plan -Abdominal pain nausea vomiting: Possibly secondary to gastroparesis patient is clinically doing well with improvement in her symptoms patient was started on diet if she can tolerate patient will be discharged today we will cut down the fluids to 70 cc/h --Fibromyalgia for which patient is on duloxetine, gabapentin which will be resumed -History of rheumatoid arthritis -Sleep apnea uses CPAP machine at home -Gastroesophageal reflux disease and patient is on omeprazole which will be resumed -Asthma without any acute exacerbation -Hypothyroidism -Hypertension: Patient to reassess for need of nifedipine patient is on propranolol IV for headache -Possible migraine history presently not having any issues with that patient is on propranolol and Fioricet which will be resumed DVT prophylaxis: Early ambulation Past Medical History Past Medical History: Asthma, Blood Disorder, Cancer, Eye Disorder, Fibromyalgia, GERD/Reflux, Hypertension, Rheumatoid Arthritis (RA), Sleep Apnea/CPAP/BIPAP, Thyroid Disorder Additional Past Medical History / Comment(s): Spinal cord injury, brain injury with resultant chronic neck, bilateral shoulder and back pain, coordination and memory problems. IgA Deficiency. States "can only have IgA deficient blood or I will have an anaphylactic reaction." Chronic Interstitial Cystitis, Gastroparesis. CPAP use. Skin cancer 2 yrs ago on back. Bilateral Macular Degeneration. LUPUS History of Any Multi-Drug Resistant Organisms: MRSA Date of last positivie culture/infection: 2015 MDRO Source:: Right Inner Thigh Past Surgical History: Back Surgery, Hysterectomy Additional Past Surgical History / Comment(s): Spinal fusion, bilateral bunionectomy, skin cancer removed from back. Past Anesthesia/Blood Transfusion Reactions: No Reported Reaction, Motion Sickness Additional Past Anesthesia/Blood Transfusion Reaction / Comment(s): No history of blood transfusion. IgA Deficiency, can only have IgA Deficient blood or will have Anaphylactic Reaction. Past Psychological History: Anxiety, PTSD Smoking Status: Never smoker Past Alcohol Use History: None Reported Past Drug Use History: Marijuana Additional Drug Use History / Comment(s): CBD use AT HS-INSTRUCTED TO REFRAIN FROM USE FOR AT LEAST 24 HOURS PRIOR TO PROCEDURE - Past Family History Father Family Medical History: Cancer, Seizure Disorder Additional Family Medical History / Comment(s): Prostate Cancer. Mother Family Medical History: Cancer Additional Family Medical History / Comment(s): Skin cancer. Medications and Allergies Home Medications Medication Instructions Recorded Confirmed Type DULoxetine HCL [Cymbalta] 60 mg PO DAILY 05/19/21 06/15/24 History EPINEPHrine (Auto Inject) [Epipen] 0.3 mg IM ONCE PRN 10/19/20 11/16/23 History Omeprazole 20 mg PO AC-BID 10/19/20 11/16/23 History tiZANidine HCL 4 mg PO TID PRN 10/19/20 11/16/23 History DULoxetine HCL [Cymbalta] 30 mg PO DAILY 10/20/21 11/16/23 History Cholecalciferol [Vitamin D3 (25 50 mcg PO DAILY 04/22/23 11/16/23 History Mcg = 1000 Iu)] Gabapentin [Neurontin] 800 mg PO HS 04/22/23 11/16/23 History Hydroxychloroquine Sulfate 200 mg PO DAILY 04/22/23 11/16/23 History [Plaquenil] Butalb/APAP/Caff 50-325-40Mg 1 tab PO BID PRN 11/16/23 11/16/23 History [Fioricet 50-325-40] Clindamycin Phosphate 1 applic TOPICAL BID PRN 11/16/23 11/16/23 History Elderberry Fruit [Elderberry] 350 mg PO DAILY 11/16/23 11/16/23 History Mag Hydrox/Al Hydrox/Simeth 30 ml PO Q4H PRN 11/16/23 11/16/23 History [Maalox] Metoclopramide [Reglan] 5 mg PO ACHS #14 tab 11/16/23 Rx Mirtazapine 30 mg PO HS 11/16/23 11/16/23 History Mupirocin 2% Oint [Bactroban 2% 1 applic TOPICAL DAILY PRN 11/16/23 11/16/23 History Oint] NIFEdipine XL [Procardia Xl] 30 mg PO DAILY 11/16/23 11/16/23 History Ondansetron Odt [Zofran Odt] 4 mg PO Q6H PRN 11/16/23 11/16/23 History Promethazine Suppository 25 mg RECTAL BID PRN 11/16/23 11/16/23 History [Phenergan] Propranolol HCl [Propranolol HCl 80 mg PO HS 11/16/23 11/16/23 History ER] azaTHIOprine [Imuran] 50 mg PO DAILY 11/16/23 11/16/23 History oxyCODONE-APAP 5-325MG [Percocet 1 tab PO DAILY PRN 11/16/23 11/16/23 History 5-325 mg] Allergies Allergy/AdvReac Type Severity Reaction Status Date / Time adhesive Allergy Rash/Hives Verified 11/16/23 10:42 ciprofloxacin [From Cipro] Allergy Rash/Hives Verified 11/16/23 10:42 cyclobenzaprine Allergy Swelling Verified 11/16/23 10:42 [From Flexeril] Iodinated Contrast Media Allergy Anaphylaxis Verified 11/16/23 10:42 latex Allergy Anaphylaxis Verified 11/16/23 10:42 levofloxacin [From Levaquin] Allergy Rash/Hives Verified 11/16/23 10:42 metronidazole [From Flagyl] Allergy Swelling Verified 11/16/23 10:42 sulfamethoxazole Allergy Rash/Hives Verified 11/16/23 10:42 [From Bactrim] trimethoprim [From Bactrim] Allergy Rash/Hives Verified 11/16/23 10:42 haloperidol [From Haldol] AdvReac Hallucinati Verified 11/16/23 10:42 ons Physical Exam Vitals: Vital Signs Temp Pulse Pulse Resp BP BP Pulse Ox 11/16/23 06:59 97.3 F L 88 16 135/84 98 11/16/23 06:07 97.8 F 80 17 173/112 96 11/16/23 04:51 95 18 145/95 95 11/15/23 22:24 90 18 150/90 99 11/15/23 18:15 97.5 F L 77 20 154/102 99 Intake and Output 11/15/23 11/16/23 11/16/23 22:59 06:59 14:59 Other: Weight 127.006 kg 127.006 kg Results CBC & Chem 7: 11/15/23 19:18 11/15/23 19:45 Labs: Abnormal Lab Results - Last 24 Hours (Table) 11/15/23 11/15/23 Range/Units 19:18 19:45 Lymphocytes # 0.6 L (1.0-4.8) k/uL Chloride 109 H (98-107) mmol/L BUN 5 L (7-17) mg/dL Glucose 103 H (74-99) mg/dL Thrombosis Risk Factor Assmnt - Choose All That Apply Any of the Below Risk Factors Present?: Yes Each Factor Represents 1 point: Age 41-60 years, Hx of IBD, Obesity (BMI >25) Each Risk Factor Represents 3 Points: Family history of DVT/PE Thrombosis Risk Factor Assessment Total Risk Factor Score: 6 Thrombosis Risk Factor Assessment Level: High Risk
--- NOTE | 2023-11-16 11:10 | P.DS ---
Providers Date of admission: 11/16/23 03:35 Attending physician: Elaine Schwartz Primary care physician: Thuy Tao MD Hospital Course: 42-year-old female came in with complaints of nausea vomiting patient has history of gastroparesis but does not have any history of diabetes mellitus. Etiology of gastroparesis is not known patient has not been eating drinking last 4 days but patient is doing well without nausea. Patient was started on 3 medications Compazine, Zofran, Reglan and Zofran and and Compazine is being discontinued because of extraparametal side effects and QT prolongation concerns when we combine these 3 medications. Patient will be started on soft diet if she can tolerate patient will be discharged today patient has multiple other medical problems including autoimmune issues. Patient does not have any fever chills patient had squeezing or crampy abdominal pain without any symptoms of gastritis septic ulcer disease. Patient follows up with gastroenterology and rheumatology on regular basis as an outpatient. PHYSICAL EXAMINATION: GENERAL: The patient is alert and oriented x3, not in any acute distress. Well developed, well nourished. HEENT: Pupils are round and equally reacting to light. EOMI. No scleral icterus. No conjunctival pallor. Normocephalic, atraumatic. No pharyngeal erythema. No thyromegaly. CARDIOVASCULAR: S1 and S2 present. No murmurs, rubs, or gallops. PULMONARY: Chest is clear to auscultation, no wheezing or crackles. ABDOMEN: Soft, nontender, nondistended, normoactive bowel sounds. No palpable organomegaly. MUSCULOSKELETAL: No joint swelling or deformity. EXTREMITIES: No cyanosis, clubbing, or pedal edema. NEUROLOGICAL: Gross neurological examination did not reveal any focal deficits. SKIN: No rashes. Assessment and plan -Abdominal pain nausea vomiting: Possibly secondary to gastroparesis patient is clinically doing well with improvement in her symptoms patient was started on diet if she can tolerate patient will be discharged today we will cut down the fluids to 70 cc/h --Fibromyalgia for which patient is on duloxetine, gabapentin which will be resumed -History of rheumatoid arthritis -Sleep apnea uses CPAP machine at home -Gastroesophageal reflux disease and patient is on omeprazole which will be resumed -Asthma without any acute exacerbation -Hypothyroidism -Hypertension: Patient to reassess for need of nifedipine patient is on propranolol IV for headache -Possible migraine history presently not having any issues with that patient is on propranolol and Fioricet which will be resumed DVT prophylaxis: Early ambulation Plan - Discharge Summary New Discharge Prescriptions: New Metoclopramide [Reglan] 5 mg PO ACHS #14 tab No Action EPINEPHrine (Auto Inject) [Epipen] 0.3 mg IM ONCE PRN PRN Reason: Anaphylaxis DULoxetine HCL [Cymbalta] 60 mg PO DAILY Gabapentin [Neurontin] 800 mg PO HS Cholecalciferol [Vitamin D3 (25 Mcg = 1000 Iu)] 50 mcg PO DAILY Propranolol HCl [Propranolol HCl ER] 80 mg PO HS Promethazine Suppository [Phenergan] 25 mg RECTAL BID PRN PRN Reason: Nausea Ondansetron Odt [Zofran Odt] 4 mg PO Q6H PRN PRN Reason: Nausea Mupirocin 2% Oint [Bactroban 2% Oint] 1 applic TOPICAL DAILY PRN PRN Reason: skin issues tiZANidine HCL 4 mg PO TID PRN PRN Reason: Muscle Pain Omeprazole 20 mg PO AC-BID DULoxetine HCL [Cymbalta] 30 mg PO DAILY Hydroxychloroquine Sulfate [Plaquenil] 200 mg PO DAILY Elderberry Fruit [Elderberry] 350 mg PO DAILY azaTHIOprine [Imuran] 50 mg PO DAILY NIFEdipine XL [Procardia Xl] 30 mg PO DAILY Mirtazapine 30 mg PO HS oxyCODONE-APAP 5-325MG [Percocet 5-325 mg] 1 tab PO DAILY PRN PRN Reason: Pain Butalb/APAP/Caff 50-325-40Mg [Fioricet 50-325-40] 1 tab PO BID PRN PRN Reason: Migraine Headache Mag Hydrox/Al Hydrox/Simeth [Maalox] 30 ml PO Q4H PRN PRN Reason: Gi Upset Clindamycin Phosphate 1 applic TOPICAL BID PRN PRN Reason: scalp, when flared Discharge Medication List DULoxetine HCL [Cymbalta] 60 mg PO DAILY 10/19/20 [History] EPINEPHrine (Auto Inject) [Epipen] 0.3 mg IM ONCE PRN 10/19/20 [History] Omeprazole 20 mg PO AC-BID 10/19/20 [History] tiZANidine HCL 4 mg PO TID PRN 10/19/20 [History] DULoxetine HCL [Cymbalta] 30 mg PO DAILY 10/20/21 [History] Cholecalciferol [Vitamin D3 (25 Mcg = 1000 Iu)] 50 mcg PO DAILY 04/22/23 [History] Gabapentin [Neurontin] 800 mg PO HS 04/22/23 [History] Hydroxychloroquine Sulfate [Plaquenil] 200 mg PO DAILY 04/22/23 [History] Butalb/APAP/Caff 50-325-40Mg [Fioricet 50-325-40] 1 tab PO BID PRN 11/16/23 [History] Clindamycin Phosphate 1 applic TOPICAL BID PRN 11/16/23 [History] Elderberry Fruit [Elderberry] 350 mg PO DAILY 11/16/23 [History] Mag Hydrox/Al Hydrox/Simeth [Maalox] 30 ml PO Q4H PRN 11/16/23 [History] Metoclopramide [Reglan] 5 mg PO ACHS #14 tab 11/16/23 [Rx] Mirtazapine 30 mg PO HS 11/16/23 [History] Mupirocin 2% Oint [Bactroban 2% Oint] 1 applic TOPICAL DAILY PRN 11/16/23 [History] NIFEdipine XL [Procardia Xl] 30 mg PO DAILY 11/16/23 [History] Ondansetron Odt [Zofran Odt] 4 mg PO Q6H PRN 11/16/23 [History] Promethazine Suppository [Phenergan] 25 mg RECTAL BID PRN 11/16/23 [History] Propranolol HCl [Propranolol HCl ER] 80 mg PO HS 11/16/23 [History] azaTHIOprine [Imuran] 50 mg PO DAILY 11/16/23 [History] oxyCODONE-APAP 5-325MG [Percocet 5-325 mg] 1 tab PO DAILY PRN 11/16/23 [History] Follow up Appointment(s)/Referral(s): Jett Fernández MD [REFERRING] - 1 Week Lizbeth Bond MD [STAFF PHYSICIAN] - 1 Week None,Stated [REFERRING] - 3 Days Discharge Disposition: HOME SELF-CARE
[2023-11-16] MEDS: DULoxetine HCL 60 MG CAPSULE.DR PO SCH (11:49)
[2023-11-16] MEDS: DULoxetine HCL 30 MG CAPSULE.DR PO SCH (11:49)
[2023-11-16] MEDS: PANTOPRAZOLE 40 MG TABLET PO SCH (11:49)
[2023-11-16] MEDS: ONDANSETRON ODT 4 MG TAB PO PRN (11:49)
[2023-11-16] MEDS: azaTHIOprine 50 MG TAB PO SCH (11:49)
[2023-11-16] MEDS: HYDROXYCHLOROQUINE SULFATE 200 MG TAB PO SCH (11:49)
[2023-11-16 12:18] VITALS: BP 159/101; PULSE 107; RESP 17; TEMP 97.7
[2023-11-16] MEDS ORDERED: PROPRANOLOL LA 80 MG CAP.SA.24H PO SCH (21:00)
[2023-11-16] MEDS ORDERED: DULoxetine HCL 60 MG CAPSULE.DR PO SCH (21:00)
[2023-11-16] MEDS ORDERED: DULoxetine HCL 30 MG CAPSULE.DR PO SCH (21:00)
[2023-11-16] MEDS ORDERED: GABAPENTIN 400 MG CAP PO SCH (21:00)
[2023-11-16] MEDS ORDERED: HYDROXYCHLOROQUINE SULFATE 200 MG TAB PO SCH (21:00)
[2023-11-16] MEDS ORDERED: azaTHIOprine 50 MG TAB PO SCH (21:00)
[2023-11-16] MEDS ORDERED: MIRTAZAPINE 15 MG TAB PO SCH (21:00)
== END 2023-11-16 16:23 | disposition home or self-care (01) ==
LOC: EC 18:05 → 5NMEDONC 11-16 03:35
PROVIDERS: ADMIT Hospitalist; ATTEND Hospitalist
DX: R11.10 Vomiting, unspecified (principal); M79.7 Fibromyalgia; M06.9 Rheumatoid arthritis, unspecified; G47.30 Sleep apnea, unspecified; Z99.89 Dependence on other enabling machines and devices; K21.9 Gastro-esophageal reflux disease without esophagitis; J45.909 Unspecified asthma, uncomplicated; E03.9 Hypothyroidism, unspecified; I10 Essential (primary) hypertension; Z98.1 Arthrodesis status; R94.31 Abnormal electrocardiogram [ECG] [EKG]; T43.3X5A Adverse effect of phenothiazine antipsychotics and neuroleptics, initial encounter; Z90.710 Acquired absence of both cervix and uterus; Z87.892 Personal history of anaphylaxis; Z85.828 Personal history of other malignant neoplasm of skin; Z82.0 Family history of epilepsy and other diseases of the nervous system; Z80.8 Family history of malignant neoplasm of other organs or systems; Z79.899 Other long term (current) drug therapy; Z79.624 Long term (current) use of inhibitors of nucleotide synthesis
CPT/HCPCS: 96376; 96374; 96375; 99285; 36415; 93005; 80053; 82150; 83690; 85025; G0378; J2060; J1200; J2765 ×2; J2405; J3490

== ENCOUNTER → 2024-03-10 | Outpatient (CLI) | payer MEDICARE, OTHER ==
--- NOTE | 2024-03-10 18:13 | CT ---
EXAMINATION TYPE: CT adrenal glands wo/w con DATE OF EXAM: 03/10/2024 COMPARISON: 01/06/2021 HISTORY: 43-year-old female r/o adrenal tumor. D35.00 BENIGN NEOPLASM OF UNSPECIFIED ADRENAL GLAN TECHNIQUE: Contiguous axial scanning of the abdomen performed without and with IV Contrast, patient i njected with 100ml mL of Isovue 370. 15 minute delayed scan through the adrenal glands were obtained. Coronal/sagittal reconstructions performed. CT DLP: 2065 mGycm Automated exposure control for dose reduction was used. FINDINGS: Heart normal size without pericardial effusion. Lung bases clear without pleural effusion. Tiny 1 cm cyst within the left liver lobe and 1.2 cm in the anterior right liver lobe. Portal venous system is patent. No biliary ductal dilatation. Gallbladder, adrenal glands, kidneys, spleen with hilar splenule, and pancreas show no gross abnormal ity. No dilated small bowel, free fluid, or free air. No mesenteric or retroperitoneal adenopathy. Tiny fatty umbilical hernia. Normal appendix. Scattered mild stool. No pericolonic inflammatory change. Pelvis not imaged. Bones: Moderate degenerative disc disease L5-S1 with facet arthropathy lower lumbar spine. Additional [id number] degenerative disc disease in the remainder of the lumbar spine. Trace grade 1 anter olisthesis L4-L5. IMPRESSION: 1. NO DISCRETE ADRENAL LESION IS IDENTIFIED. 2. A COUPLE TINY BENIGN HEPATIC CYSTS MEASURING UP TO 1.2 CM. 3. TINY FATTY UMBILICAL HERNIA. [facility], , 03/10/2024 6:11 PM
== END | disposition home or self-care (01) ==
LOC: RADCTMAIN 15:09
PROVIDERS: ATTEND Internal Medicine Endocrinology, Diabetes & Metabolism
DX: D35.00 Benign neoplasm of unspecified adrenal gland
CPT/HCPCS: 74170

== ENCOUNTER → 2024-05-08 | Outpatient (CLI) | payer MEDICARE, OTHER ==
[~2024-05-08] MED LIST changes: -LACTATED RINGERS 1,000 ML IV SCH; -LIDOCAINE 1% (10MG/ML) FOR IV START INTRADERMA PRN; +SODIUM CHLORIDE 0.9% 250 ML in EMPTY BAG 1 BAG IV PRN; +SODIUM CHLORIDE 0.9% 500 ML 500 ML in EMPTY BAG 1 BAG IV PRN
[2024-05-08] MEDS: SODIUM CHLORIDE 0.9% 1,000 ML IV NR (14:05)
[2024-05-08] MEDS: ONDANSETRON 4 MG/2 ML VIAL IVP NR (14:07)
[2024-05-08 14:15] VITALS: BP 130/89; PULSE 82; RESP 16; TEMP 97.6
== END ==
LOC: PROCWHC3 13:12
PROVIDERS: ATTEND Nurse Practitioner Family
DX: R11.15 Cyclical vomiting syndrome unrelated to migraine (principal)
CPT/HCPCS: 96361; 96374; J2405; 96360

== ENCOUNTER 2024-05-13 14:29 | Emergency (ER) | payer MEDICARE, OTHER ==
[2024-05-13 14:55] VITALS: RESP 20; TEMP 98.3
[2024-05-13] MEDS ORDERED: hydrALAZINE HCL 20 MG/ML 1 ML VIAL IVP STA (15:19)
--- NOTE | 2024-05-13 15:25 | ED ---
General Adult HPI - General Chief complaint: Chest Pain Stated complaint: SOB Time Seen by Provider: 05/13/24 15:00 Source: patient, RN notes reviewed, old records reviewed Mode of arrival: ambulatory Limitations: no limitations - History of Present Illness Initial comments: This is a 43-year-old female who presents to the emergency department stating s he has lupus and rheumatoid arthritis. Patient states she has been having a little bit of a flareup lately. Patient states she has also been complaining of a migraine for 2 weeks. Patient states today she got up and her blood pressure was elevated she noted she had blurred vision and was feeling a little dizzy. She denied chest pain to myself or shortness of breath even though it was mentioned in triage I did ask her a couple of times and both times she denied. Patient denies any abdominal pain. Patient states she does vomit because she has cyclic vomiting syndrome and she states she has been vomiting on and off for the last few weeks. She did vomit a couple times today. - Related Data Home Medications Medication Instructions Recorded Confirmed DULoxetine HCL [Cymbalta] 60 mg PO DAILY 10/19/20 11/16/23 EPINEPHrine (Auto Inject) [Epipen] 0.3 mg IM ONCE PRN 10/19/20 11/16/23 Omeprazole 20 mg PO AC-BID 10/19/20 11/16/23 tiZANidine HCL 4 mg PO TID PRN 10/19/20 11/16/23 DULoxetine HCL [Cymbalta] 30 mg PO DAILY 10/20/21 11/16/23 Cholecalciferol [Vitamin D3 (25 50 mcg PO DAILY 04/22/23 11/16/23 Mcg = 1000 Iu)] Gabapentin [Neurontin] 800 mg PO HS 04/22/23 11/16/23 Hydroxychloroquine Sulfate 200 mg PO DAILY 04/22/23 11/16/23 [Plaquenil] Butalb/APAP/Caff 50-325-40Mg 1 tab PO BID PRN 11/16/23 11/16/23 [Fioricet 50-325-40] Clindamycin Phosphate 1 applic TOPICAL BID PRN 11/16/23 11/16/23 Elderberry Fruit [Elderberry] 350 mg PO DAILY 11/16/23 11/16/23 Mag Hydrox/Al Hydrox/Simeth 30 ml PO Q4H PRN 11/16/23 11/16/23 [Maalox] Mirtazapine 30 mg PO HS 11/16/23 11/16/23 Mupirocin 2% Oint [Bactroban 2% 1 applic TOPICAL DAILY PRN 11/16/23 11/16/23 Oint] NIFEdipine XL [Procardia Xl] 30 mg PO DAILY 11/16/23 11/16/23 Ondansetron Odt [Zofran Odt] 4 mg PO Q6H PRN 11/16/23 11/16/23 Promethazine Suppository 25 mg RECTAL BID PRN 11/16/23 11/16/23 [Phenergan] Propranolol HCl [Propranolol HCl 80 mg PO HS 11/16/23 11/16/23 ER] azaTHIOprine [Imuran] 50 mg PO DAILY 11/16/23 11/16/23 oxyCODONE-APAP 5-325MG [Percocet 1 tab PO DAILY PRN 11/16/23 11/16/23 5-325 mg] Previous Rx's Medication Instructions Recorded Metoclopramide [Reglan] 5 mg PO ACHS #14 tab 11/16/23 Allergies Allergy/AdvReac Type Severity Reaction Status Date / Time adhesive Allergy Rash/Hives Verified 05/13/24 14:50 amitriptyline Allergy Rash/Hives Verified 05/13/24 14:50 ciprofloxacin [From Cipro] Allergy Rash/Hives Verified 05/13/24 14:50 cyclobenzaprine Allergy Swelling Verified 05/13/24 14:50 [From Flexeril] Iodinated Contrast Media Allergy Anaphylaxis Verified 05/13/24 14:50 latex Allergy Anaphylaxis Verified 05/13/24 14:50 levofloxacin [From Levaquin] Allergy Rash/Hives Verified 05/13/24 14:50 metronidazole [From Flagyl] Allergy Swelling Verified 05/13/24 14:50 sulfamethoxazole Allergy Rash/Hives Verified 05/13/24 14:50 [From Bactrim] sumatriptan [From Imitrex] Allergy Unknown Verified 05/13/24 14:50 trimethoprim [From Bactrim] Allergy Rash/Hives Verified 05/13/24 14:50 haloperidol [From Haldol] AdvReac Hallucinati Verified 05/13/24 14:50 ons Review of Systems ROS Statement: Those systems with pertinent positive or pertinent negative responses have been documented in the HPI. ROS Other: All systems not noted in ROS Statement are negative. Past Medical History Past Medical History: Asthma, Blood Disorder, Cancer, Eye Disorder, Fibromyalgia, GERD/Reflux, Hypertension, Rheumatoid Arthritis (RA), Sleep Apnea/CPAP/BIPAP, Thyroid Disorder Additional Past Medical History / Comment(s): Spinal cord injury, brain injury with resultant chronic neck, bilateral shoulder and back pain, coordination and memory problems. IgA Deficiency. States "can only have IgA deficient blood only or I will have an Anaphylactic Reaction." Chronic Interstitial Cystitis, Gastroparesis. CPAP use. Skin cancer 2 yrs ago on back. Bilateral Macular Degeneration. LUPUS History of Any Multi-Drug Resistant Organisms: MRSA Date of last positivie culture/infection: 2015 MDRO Source:: Right Inner Thigh Past Surgical History: Back Surgery, Hysterectomy Additional Past Surgical History / Comment(s): Spinal fusion, bilateral bunionectomy, skin cancer removed from back. Past Anesthesia/Blood Transfusion Reactions: No Reported Reaction, Motion Sickness Additional Past Anesthesia/Blood Transfusion Reaction / Comment(s): No history of blood transfusion. IgA Deficiency, can only have IgA Deficient blood or will have Anaphylactic Reaction. Past Psychological History: Anxiety, PTSD Smoking Status: Never smoker Past Alcohol Use History: None Reported Past Drug Use History: None Reported - Past Family History Father Family Medical History: Cancer, Seizure Disorder Additional Family Medical History / Comment(s): Prostate Cancer. Mother Family Medical History: Cancer Additional Family Medical History / Comment(s): Skin cancer. General Exam - General Exam Comments Initial Comments: GENERAL: Patient is well-developed and well-nourished. Patient is nontoxic and well- hydrated and is in no acute distress. ENT: Neck is soft and supple. No significant lymphadenopathy is noted. Oropharynx is clear. Moist mucous membranes. Neck has full range of motion without eliciting any pain. EYES: The sclera were anicteric and conjunctiva were pink and moist. Extraocular movements were intact and pupils were equal round and reactive to light. Eyelids were unremarkable. PULMONARY: Unlabored respirations. Good breath sounds bilaterally. No audible rales rhonchi or wheezing was noted. CARDIOVASCULAR: There is a regular rate and rhythm without any murmurs gallops or rubs. ABDOMEN: Soft and nontender with normal bowel sounds. . SKIN: Skin is clear with no lesions or rashes and otherwise unremarkable. NEUROLOGIC: Patient is alert and oriented x3. Cranial nerves II through XII are grossly intact. Motor and sensory are also intact. Normal speech, volume and content. Symmetrical smile. MUSCULOSKELETAL: Normal extremities with adequate strength and full range of motion. LYMPHATICS: No significant lymphadenopathy is noted PSYCHIATRIC: Normal psychiatric evaluation. Limitations: no limitations Course Vital Signs 05/13/24 05/13/24 14:52 15:32 Temperature 98.3 F Pulse Rate 100 101 H Respiratory 20 20 Rate Blood Pressure 194/117 129/83 O2 Sat by Pulse 97 98 Oximetry Medical Decision Making - Medical Decision Making EKG is interpreted by myself but EKG shows a sinus rhythm at 89 bpm [place] was 171 QRS is 94 QT interval 338 QTc is 385. Patient's EKG shows no ST segment elevation or depression Was pt. sent in by a medical professional or institution ([employer] Platt, MECHANICS SUPERVISOR, urgent care, hospital, or [place]...) When possible be specific @ -No Did you speak to anyone other than the patient for history (EMS, parent, family, police, friend...)? What history was obtained from this source @ -No Did you review nursing and triage notes (agree or disagree)? Why? @ -I reviewed and agree with nursing and triage notes Were old charts reviewed (outside hosp., previous admission, EMS record, old EKG, old radiological studies, urgent care reports/EKG's, [place] [facility] [place] records)? Report findings @ -No old charts were reviewed Differential Diagnosis? @ -Severe was pt. sent in by a medical professional or institution ([facility], MECHANICS SUPERVISOR, urgent care, hospital, or [place] [facility] [place]...) When possible be specific @ -No Did you speak to anyone other than the patient for history (EMS, parent, family, police, friend...)? What history was obtained from this source @ -No Did you review nursing and triage notes (agree or disagree)? Why? @ -I reviewed and agree with nursing and triage notes Were old charts reviewed (outside hosp., previous admission, EMS record, old EKG, old radiological studies, urgent care reports/EKG's, [place] [facility] [place] records)? Report findings @ -No old charts were reviewed Differential Diagnosis? @ -Differential Dizziness: Benign paroxysmal positional Vertigo, Meniere's disease, otitis media, acoustic neuroma, vertebrobasilar insufficiency, cerebellar stroke, encephalitis, hypovolemic, arrhythmia, coronary artery syndrome, anemia, this is not meant to be an all-inclusive list Differential Headache: Migraine, tension, cluster, carbon monoxide, central venous thrombosis, pension karma temporal arteritis, acute closure glaucoma, intercranial hemorrhage, mastoiditis, sinusitis, head injury, this is not meant to be an all-inclusive list. EKG interpreted by me (3pts min.). @ -As above X-rays interpreted by me (1pt min.). @ -Chest x-ray shows no acute abnormality CT interpreted by me (1pt min.). @ -CT scan shows no acute abnormality U/S interpreted by me (1pt. min.). @ -None done What testing was considered but not performed or refused? (CT, X-rays, U/S, labs)? Why? @ -None What meds were considered but not given or refused? Why? @ -None Did you discuss the management of the patient with other professionals (professionals i.e. , PA, MECHANICS SUPERVISOR, lab, RT, psych nurse, sr. social media & mobile manager, pillow agent, teacher, armed security officer, rn case management)? Give summary @ -No Was smoking cessation discussed for >3mins.? @ -No Was critical care preformed (if so, how long)? @ -No Were there social determinants of health that impacted care today? How? (Homelessness, low income, unemployed, alcoholism, drug addiction, ramirez sportation, low edu. Level, literacy, decrease access to med. care, [facility], rehab)? @ -No Was there de-escalation of care discussed even if they declined (Discuss DNR or withdrawal of care, Hospice)? DNR status @ -No What co-morbidities impacted this encounter? (DM, HTN, Smoking, COPD, CAD, Cancer, CVA, ARF, Chemo, Hep., AIDS, mental health diagnosis, sleep apnea, morbid obesity)? @ -None Was patient admitted / discharged? Hospital course, mention meds given and route, prescriptions, significant lab abnormalities, going to OR and other pertinent info. @ -I was called to the room because patient wanted to leave because her headache was better and she was no longer nauseous. Patient states she has medicine at home she can finish up the treatment with. Patient blood pressure was normal without any medications. Patient stated she wanted to leave before even though all of her lab work was not back at this time and she was feeling much better so patient will be discharged home. Patient states she has an appoint with her neurologist tomorrow. Undiagnosed new problem with uncertain prognosis? @ -No Drug Therapy requiring intensive monitoring for toxicity (Heparin, Nitro, Insulin, Cardizem)? @ -No Were any procedures done? @ -No Diagnosis/symptom? @ -Hypertensive urgency Acute, or Chronic, or Acute on Chronic? @ -Acute Uncomplicated (without systemic symptoms) or Complicated (systemic symptoms)? @ -Complicated Side effects of treatment? @ -No Exacerbation, Progression, or Severe Exacerbation? @ -No Poses a threat to life or bodily function? How? (Chest pain, [place], DC, pneumonia, PE, COPD, DKA, ARF, appy, cholecystitis, CVA, Diverticulitis, Homicidal, Suicidal, threat to staff... and all critical care pts) @ -No Diagnosis/symptom? @ -Cyclic vomiting Acute, or Chronic, or Acute on Chronic? @ -Acute Uncomplicated (without systemic symptoms) or Complicated (systemic symptoms)? @ -Uncomplicated Side effects of treatment? @ -None Exacerbation, Progression, or Severe Exacerbation] @ -No Poses a threat to life or bodily function? @ -No Diagnosis/symptom? @ -Dizziness Acute, or Chronic, or Acute on Chronic? @ -Acute Uncomplicated (without systemic symptoms) or Complicated (systemic symptoms)? @ -Complicated Side effects of treatment? @ -None Exacerbation, Progression, or Severe Exacerbation] @ -No Poses a threat to life or bodily function? @ -No - Lab Data Result diagrams: 05/13/24 15:18 05/13/24 15:18 Lab Results 05/13/24 05/13/24 05/13/24 Range/Units 15:18 15:18 15:18 WBC 3.1 L (3.8-10.6) k/uL RBC 3.72 L (3.80-5.40) m/uL Hgb 12.9 (11.4-16.0) gm/dL Hct 38.0 (34.0-46.0) % MCV 102.0 H (80.0-100.0) fL MCH 34.6 (25.0-35.0) pg MCHC 34.0 (31.0-37.0) g/dL RDW 16.5 H (11.5-15.5) % Plt Count 407 (150-450) k/uL MPV 7.2 Neutrophils % 69 % Lymphocytes % 21 % Monocytes % 5 % Eosinophils % 3 % Basophils % 0 % Neutrophils # 2.2 (1.3-7.7) k/uL Lymphocytes # 0.7 L (1.0-4.8) k/uL Monocytes # 0.2 (0-1.0) k/uL Eosinophils # 0.1 (0-0.7) k/uL Basophils # 0.0 (0-0.2) k/uL Anisocytosis Slight Macrocytosis Slight PT 9.9 L (10.0-12.5) sec INR 0.9 (<1.2) APTT 26.4 (22.0-30.0) sec Sodium 139 (137-145) mmol/L Potassium 4.8 (3.5-5.1) mmol/L Chloride 111 H (98-107) mmol/L Carbon Dioxide 23 (22-30) mmol/L Anion Gap 5 mmol/L BUN 8 (7-17) mg/dL Creatinine 0.77 (0.52-1.04) mg/dL Est GFR (CKD-EPI)AfAm >90 (>60 ml/min/1.73 sqM) Est GFR (CKD-EPI)NonAf >90 (>60 ml/min/1.73 sqM) Glucose 99 (74-99) mg/dL Calcium 9.3 (8.4-10.2) mg/dL Magnesium 2.1 (1.6-2.3) mg/dL Total Bilirubin 1.0 (0.2-1.3) mg/dL AST 34 (14-36) U/L ALT 15 (4-34) U/L Alkaline Phosphatase 66 (38-126) U/L Troponin I (0.000-0.034) ng/mL NT-Pro-B Natriuret Pep 22 pg/mL Total Protein 7.2 (6.3-8.2) g/dL Albumin 4.4 (3.5-5.0) g/dL Urine Color Urine Appearance (Clear) Urine pH (5.0-8.0) Ur Specific [place] (1.001-1.035) Urine Protein (Negative) Urine Glucose (UA) (Negative) Urine Ketones (Negative) Urine Blood (Negative) Urine Nitrite (Negative) Urine Bilirubin (Negative) Urine Urobilinogen (<2.0) mg/dL Ur Leukocyte Esterase (Negative) Urine RBC (0-5) /hpf Urine WBC (0-5) /hpf Ur Squamous Epith Cells (0-4) /hpf Urine Mucus (None) /hpf 05/13/24 05/13/24 Range/Units 15:18 15:26 WBC (3.8-10.6) k/uL RBC (3.80-5.40) m/uL Hgb (11.4-16.0) gm/dL Hct (34.0-46.0) % MCV (80.0-100.0) fL MCH (25.0-35.0) pg MCHC (31.0-37.0) g/dL RDW (11.5-15.5) % Plt Count (150-450) k/uL MPV Neutrophils % % Lymphocytes % % Monocytes % % Eosinophils % % Basophils % % Neutrophils # (1.3-7.7) k/uL Lymphocytes # (1.0-4.8) k/uL Monocytes # (0-1.0) k/uL Eosinophils # (0-0.7) k/uL Basophils # (0-0.2) k/uL Anisocytosis Macrocytosis PT (10.0-12.5) sec INR (<1.2) APTT (22.0-30.0) sec Sodium (137-145) mmol/L Potassium (3.5-5.1) mmol/L Chloride (98-107) mmol/L Carbon Dioxide (22-30) mmol/L Anion Gap mmol/L BUN (7-17) mg/dL Creatinine (0.52-1.04) mg/dL Est GFR (CKD-EPI)AfAm (>60 ml/min/1.73 sqM) Est GFR (CKD-EPI)NonAf (>60 ml/min/1.73 sqM) Glucose (74-99) mg/dL Calcium (8.4-10.2) mg/dL Magnesium (1.6-2.3) mg/dL Total Bilirubin (0.2-1.3) mg/dL AST (14-36) U/L ALT (4-34) U/L Alkaline Phosphatase (38-126) U/L Troponin I <0.012 (0.000-0.034) ng/mL NT-Pro-B Natriuret Pep pg/mL Total Protein (6.3-8.2) g/dL Albumin (3.5-5.0) g/dL Urine Color Yellow Urine Appearance Cloudy H (Clear) Urine pH 6.0 (5.0-8.0) Ur Specific [place] 1.027 (1.001-1.035) Urine Protein 1+ H (Negative) Urine Glucose (UA) Negative (Negative) Urine Ketones Negative (Negative) Urine Blood Negative (Negative) Urine Nitrite Negative (Negative) Urine Bilirubin Negative (Negative) Urine Urobilinogen <2.0 (<2.0) mg/dL Ur Leukocyte Esterase Negative (Negative) Urine RBC 1 (0-5) /hpf Urine WBC 1 (0-5) /hpf Ur Squamous Epith Cells 8 H (0-4) /hpf Urine Mucus Few H (None) /hpf Disposition Clinical Impression: Nausea and vomiting, Hypertensive urgency, Dizziness Disposition: HOME SELF-CARE Condition: Good Instructions (If sedation given, give patient instructions): Acute Nausea and Vomiting (ED), Hypertension (ED), Dizziness (ED) Is patient prescribed a controlled substance at d/c from ED?: No Referrals: Thuy Tao MD [Primary Care Provider] - 1-2 days Time of Disposition: 16:26
[2024-05-13] MEDS: droPERidol 5 MG/2 ML VIAL IVP ONE (15:30)
[2024-05-13 15:40] LABS: Anisocytosis Slight; Basophils % (A) 0 %; Eosinophils # (A) 0.1 k/uL (0-0.7); Eosinophils % (A) 3 %; HGB 12.9 gm/dL (11.4-16.0); Lymphocytes # (A) 0.7 k/uL (1.0-4.8); Lymphocytes % (A) 21 %; MCH 34.6 pg (25.0-35.0); Macrocytosis Slight; Mean Platelet Volume 7.2; Monocytes # (A) 0.2 k/uL (0-1.0); Monocytes % (A) 5 %; Neutrophils # (A) 2.2 k/uL (1.3-7.7); Neutrophils % (A) 69 %; Platelet Count 407 k/uL (150-450); RBC 3.72 m/uL (3.80-5.40); RDW 16.5 % (11.5-15.5); WBC 3.1 k/uL (3.8-10.6)
[2024-05-13 15:45] LABS: Appearance,Urine Cloudy (Clear); Bilirubin,Urine Negative (Negative); Blood,Urine Negative (Negative); Color,Urine Yellow; Glucose,Urine (UA) Negative (Negative); Ketones,Urine Negative (Negative); Leukocyte Esterase,Urine Negative (Negative); Mucus,Urine Few /hpf; Nitrite,Urine Negative (Negative); Protein,Urine 1+ (Negative); RBC,Urine 1 /hpf (0-5); Specific Gravity,Urine 1.027 (1.001-1.035); Squamous Epithelial Cell,Urine 8 /hpf (0-4); Urobilinogen,Urine <2.0 mg/dL (<2.0); WBC,Urine 1 /hpf (0-5)
[2024-05-13 15:51] LABS: ALT 15 U/L (4-34); African American GFR (CKD) >90 (>60 ml/min/1.73 sqM); Albumin 4.4 g/dL (3.5-5.0); Anion Gap 5 mmol/L; Blood Urea Nitrogen 8 mg/dL (7-17); Calcium 9.3 mg/dL (8.4-10.2); Carbon Dioxide 23 mmol/L (22-30); Glucose 99 mg/dL (74-99); Magnesium 2.1 mg/dL (1.6-2.3); Non-African American GFR(CKD) >90 (>60 ml/min/1.73 sqM); Sodium 139 mmol/L (137-145)
[2024-05-13 15:59] LABS: NT-Pro-B-Type Natriuretic Pept 22 pg/mL
[2024-05-13 16:00] LABS: INR 0.9 (<1.2); Partial Thromboplastin Time 26.4 sec (22.0-30.0); Prothrombin Time 9.9 sec (10.0-12.5)
--- NOTE | 2024-05-13 16:04 | XR ---
EXAMINATION TYPE: XR chest 2V DATE OF EXAM: 05/13/2024 3:52 PM COMPARISON: Chest radiographs from 02/09/2022 CLINICAL INDICATION: Female, 43 years old with history of Chest Pain; [facility] TECHNIQUE: XR chest 2V Frontal and lateral views of the chest. FINDINGS: Lungs/Pleura: There is no evidence of pleural effusion, focal consolidation, or pneumothorax. Pulmonary vascularity: Unremarkable. Heart/mediastinum: Cardiomediastinal silhouette is unremarkable. Musculoskeletal: No acute osseous pathology. There is fixation hardware in the lower cervical spine. Other findings: None IMPRESSION: No acute cardiopulmonary disease/process. [facility], , 05/13/2024 4:01 PM
--- NOTE | 2024-05-13 16:16 | CT ---
EXAMINATION TYPE: CT brain wo con DATE OF EXAM: 05/13/2024 3:54 PM COMPARISON: None. CLINICAL INDICATION: Female, 43 years old with history of Headache, high blood pressure, hypertension , headache TECHNIQUE: Brain: Axial CT images of the brain were obtained with coronal and sagittal reformats created and rev iewed. Contrast used: None. Oral contrast used: None. CT DLP: 1134.4 mGycm, Automated exposure control for dose reduction was used. FINDINGS: Brain: Extra-axial spaces: No abnormal extra-axial fluid collections. Ventricular system: Within normal limits Cerebral parenchyma: No acute intraparenchymal hemorrhage or mass effect. The abdullahi-white junction is well differentiated. Cerebellum: Unremarkable. Mass effect: No evidence of midline shift. Intracranial vasculature: unremarkable Soft tissues: Normal. Calvarium/osseous structures: No depressed skull fracture. Paranasal sinuses and mastoid air cells: Mild scattered paranasal sinus disease. Visualized orbits: Orbital contents are intact. IMPRESSION: No acute intracranial process. [facility], , 05/13/2024 4:14 PM
[2024-05-13 16:20] LABS: AST 34 U/L (14-36); Alkaline Phosphatase 66 U/L (38-126); Chloride 111 mmol/L (98-107); Potassium 4.8 mmol/L (3.5-5.1); Total Protein 7.2 g/dL (6.3-8.2)
[2024-05-13 16:34] VITALS: BP 125/78; PULSE 74
== END 2024-05-13 16:33 | disposition home or self-care (01) ==
LOC: EC 14:29
DX: I16.0 Hypertensive urgency (principal); R11.2 Nausea with vomiting, unspecified; R42 Dizziness and giddiness; Z91.041 Radiographic dye allergy status; Z91.040 Latex allergy status; Z88.8 Allergy status to other drugs, medicaments and biological substances; Z88.2 Allergy status to sulfonamides; Z88.1 Allergy status to other antibiotic agents
CPT/HCPCS: 36415; 93005; 83880; 80053; 83735; 84484; 85025; 85610; 85730; 81001; 71046; 70450; 99285; 96374; J1790